=== PATIENT | female | born 1965 | race Caucasian/White ===

== ENCOUNTER 2020-01-10 16:31 | Outpatient (REF) | payer OTHER, SELFPAY | END 2020-01-10 16:32 | disposition home or self-care (01) | LOC: HO.LAB 16:31 | PROVIDERS: PCP Internal Medicine; Visit Provider Internal Medicine | DX: Z20.828 Contact with and (suspected) exposure to other viral communicable diseases (principal) | CPT/HCPCS: 87635 ==

== ENCOUNTER 2021-05-17 11:56 | Emergency (ER) | payer MEDICARE, MEDICAID, SELFPAY ==
--- NOTE | ~2021-05-17 | XR_ITS ---
EXAMINATION: XR KNEE, LEFT CLINICAL INFORMATION: Fall with pain COMPARISON: None TECHNIQUE: Four views of the left knee. FINDINGS: There is no evidence of acute fracture or dislocation of the left knee. Left knee joint spaces are maintained. No left knee effusion. XR/XR knee LT 4V IMPRESSION: No significant bony abnormality of the left knee.
[2021-05-17 12:11] VITALS: BP 119/69; PULSE 70; RESP 18; TEMP 36.8; O2SAT 97; BMI 34.2
--- NOTE | 2021-05-17 12:55 | ED_ITS ---
HPI - Fall General Chief Complaint: Fall Stated Complaint: Fall/ l knee pain Time Seen by Provider: 05/17/21 12:25 Source: patient Mode of arrival: ambulatory Limitations: no limitations History of Present Illness HPI Narrative: 56-year-old female presents to the ER for evaluation of left knee pain after she slipped and fell on black ice today. She reports her left knee twisted inward and she had pain. She had to crawl to get up because the ice was so slippery. She did not hit her head or lose consciousness. She is not on anticoagulation. She has a history of a left hip replacement and is worried whenever she has an injury to her left leg. She denies any hip pain. She is ambulatory. She reports pain in the lateral left knee when she goes from sitting to standing otherwise pain is minimal. She has not noticed much for swelling. She has no weakness, tingling, numbness in the left leg. MD complaint: fall Onset (ago): hour(s) Fall from: standing Fall witnessed: no Place fall occurred: street Loss of consciousness: none Prolonged down time: no Symptoms prior to fall: none Context: tripped/slipped Severity: mild Severity scale (1-10): 4 Quality: aching Associated symptoms (after fall): denies Related Data Allergies Allergy/AdvReac Type Severity Reaction Status Date / Time lurasidone [From LATUDA] Allergy Unknown throat Verified 05/17/21 12:11 spasms, Speech-stuttering Review of Systems Review of Systems: Constitutional: No Fever, No Chills Cardiovascular: No Chest Pain, No SOB Gastrointestinal: No Nausea, No Vomiting, No abdominal Pain Musculoskeletal: + joint pain, No Myalgias Skin: No Skin Lesions, No rash Neuro: No Weakness, No Numbness, No Dizziness, No Headache Psych: + Anxiety/Panic, No Depression Heme/Lymph: No Bruising PMFSH Social History Social History (System 02/22/21 @ 12:40 by Michela Licona) Advance Directives: No Advance Directives Information Provided: No Physical Exam Vital Signs: Vital Signs: Last Vital Signs Temp 98.3 F 05/17/21 12:11 Pulse 70 05/17/21 12:11 Resp 18 05/17/21 12:11 BP 119/69 05/17/21 12:11 Pulse Ox 97 03/03/22 12:11 BMI result Body Mass Index 34.2 Appearance: Alert. Oriented X3. No acute distress. HEENT: normal inspection CVS: Normal heart rate and rhythm. Pulses normal. Respiratory: No respiratory distress. Skin: Skin warm and dry. Normal skin color. Normal skin turgor. No rashes. Extremities: Normal inspection of bilateral lower extremities. Tenderness or along the lateral joint line. Normal palpation of the patella. Normal passive and active extension and flexion of the knee. Pelvis is stable. Nontender left hip. Neurovascularly intact distally. No ecchymosis, swelling, abrasions. No joint laxity felt on anterior drawer test. Neuro: Oriented X 3. No motor deficit. No sensory deficit. Ambualtes with steady gait. Course Course Course Narrative: 48-year-old female presents to the ER for evaluation of left lateral knee pain after slip and fall on ice today. No other apparent injuries. She is ambula tory. She has tenderness along the lateral joint line, possibly a sprain or strain of the LCL. No joint laxity fell on exam. No large effusion on exam. X-rays are pending. Reevaluation(s) Reevaluation #1: X-rays normal. Given Teto wrap for compression and support. Will treat for knee sprain. Have her follow-up with her orthopedist if no resolution of her symptoms next couple of weeks with supportive care. Patient agrees with plan. Stable for DC home. Discharge Plan Discharge Clinical Impression: Knee sprain Patient Disposition: Home, Self-Care Instructions: Knee Sprain (DC) Additional Instructions: Your x-ray today was normal. Rest your knee and elevate your leg when possible. Recommend TETO wrap for support and compression. Use ice several times per day for the next 48 hours. You may bear weight as tolerated. If pain is too severe, use crutches until better. Take Motrin and/or Tylenol as needed for pain. Follow up with your doctor as needed. If you have ongoing pain in the next 1-2 weeks despite the above measures, recommend following up with your orthopedist at [facility].
--- NOTE | 2021-05-17 13:52 | PC.NURSE ---
Entered room for review discharge instructions. pt left with out signing or instructions.
== END 2021-05-17 13:53 | disposition home or self-care (01) ==
PROVIDERS: Emergency Provider Emergency Medicine; PCP Internal Medicine
DX: S83.92XA Sprain of unspecified site of left knee, initial encounter (principal); W00.0XXA Fall on same level due to ice and snow, initial encounter; Y93.01 Activity, walking, marching and hiking; Y92.480 Sidewalk as the place of occurrence of the external cause; Y99.9 Unspecified external cause status
CPT/HCPCS: 73564; 99283; 99284

== ENCOUNTER 2022-04-12 06:30 | Emergency (ER) | payer MEDICARE, MEDICAID, SELFPAY ==
--- NOTE | ~2022-04-12 | CT_ITS ---
EXAMINATION: CT HEAD WITHOUT CONTRAST CLINICAL INFORMATION: Fall while intoxicated COMPARISON: 11/22/2015 TECHNIQUE: Contiguous axial imaging was performed from the skull base to vertex without intravenous contrast. This CT examination was performed using dose optimization techniques as appropriate, variously including the following: * Automated exposure control * Adjustment of mA and/or kV according to patient size (this includes techniques or standardized protocols for targeted exams where dose is matched to indication/reason for exam; i.e. extremities or head) Use of iterative reconstruction technique DLP: 669 mGy-cm. FINDINGS: There is no evidence of acute intracranial hemorrhage or territorial infarction. No abnormal mass effect or midline shift is seen. Saenz to white matter differentiation is well preserved. No extra-axial fluid collections are identified. No hydrocephalus. No significant volume loss. There is no abnormal attenuation within the brain parenchyma. The osseous structures and soft tissues are normal. The mastoid air cells are well aerated. Moderate diffuse mucoperiosteal thickening/opacification of the paranasal sinuses. CT/CT head/brain wo IV con IMPRESSION: No acute intracranial pathology. Moderate paranasal sinus opacification.
[2022-04-12 06:31] VITALS: BP 125/71; PULSE 92; RESP 14; TEMP 36.4; O2SAT 95; BMI 28.1
--- OUTSIDE RECORDS SUMMARY | 2022-04-12 06:49 | XMS_ITS | Continuity of Care Document ---
:1965 Author Organization [facility] Address [address] [place] [address]- Care Team Providers Name Role Phone Home Napoles III, MD Primary Care Physician Encounter [facility] [place] Date(s): 07/13/20 - 08/12/20 [facility] [address], [place] [address] Attending Physician: Benjamin Bajwa Admitting Physician: Benjamin Bajwa Referring Physician: Benjamin Bajwa Allergies, Adverse Reactions, Alerts Substance Reaction Severity Status Latuda Active Immunizations Not Given Vaccine Date Status Refusal Reason pneumococcal 23-valent vaccine1 03/09/20 Not Given Patient Refuses 1Result Comment: pt unable to make this decision at this time Medications acamprosate 333 mg oral delayed release tablet = 666 mg, By Mouth, 3 times a day with meals, 0 Refills, Maintenance, 03/23/20 10:49:00 EST, Tablet,Partial fill upon patient request if the prescription is for a schedule II opioid drug. Start Date: 03/23/20 Status: Orderedaspirin 162.5 mg oral capsule, extended release = 325 mg, By Mouth, 2 times a day, 0 Refills, Maintenance, 03/23/20 12:22:00 EST, ER Capsule, Partial fill upon patient request if the prescription is for a schedule II opioid drug. Start Date: 03/23/20 Status: Orderedbaclofen 10 mg oral tablet 5 mg, 0.5, tablet, By Mouth, 3 times a day, PRN, Refills 0, Maintenance, Spasm, 03/23/20 12:22:00 EST, Partial fill upon patient request if the prescription is for a schedule II opioid drug. Start Date: 03/23/20 Status: Orderedcariprazine 3 mg oral capsule 1 capsule = 3 mg, By Mouth, Daily, 0 Refills, Maintenance, 03/06/20 15:50:00 EST, Partial fill upon patient request if the prescription is for a schedule II opioid drug. Start Date: 03/06/20 Status: Orderedcelecoxib 200 mg oral capsule 1 capsule = 200 mg, By Mouth, Daily in AM, 0 Refills, Maintenance, 03/23/20 10:49:00 EST, Capsule, Partial fill upon patient request if the prescription is for a schedule II opioid drug. Start Date: 03/23/20 Status: Orderedfolic acid 1 mg oral tablet 1 mg, 1, tablet, By Mouth, Daily, Refills 0, Maintenance, 03/23/20 10:50:00 EST, Partial fill upon patient request if the prescription is for a schedule II opioid drug. Start Date: 03/23/20 Status: OrderedKlonoPIN 1 mg oral tablet 1 tablet = 1 mg, By Mouth, 2 times a day, PRN Anxiety, Do not give within 1 hour of Dilaudid or if sleepy, patient's home med, # 6 tablet, 0 Refills, Maintenance, 03/24/20 12:29:00 EST, Tablet Start Date: 03/24/20 Stop Date: 03/27/20 Status: OrderedLaMICtal 100 mg oral tablet 300 mg, 3, tablet, By Mouth, Daily, # 60 tablet, Refills 0, Tot. Refills 0, Maintenance, 07/17/15 22:40:08 EDT, Route to Pharmacy Electronically, [facility] [id number] Start Date: 07/17/15 Stop Date: 08/16/15 Status: Orderedlidocaine 5% topical film Topically, Daily, 0 Refills, Maintenance, 03/23/20 10:51:00 EST, Patch, Partial fill upon patient request if the prescription is for a schedule II opioid drug. Start Date: 03/23/20 Status: OrderedMultivitamin Tablet 1 tablet, By Mouth, Daily, 0 Refills, Maintenance, 03/23/20 10:51:00 EST, Tablet, Partial fill upon patient request if the prescription is for a schedule II opioid drug. Start Date: 03/23/20 Status: OrderedPyridoxine Tablet 50 mg, By Mouth, Daily, Refills 0, Maintenance, 03/23/20 10:51:00 EST, Partial fill upon patient request if the prescription is for a schedule II opioid drug. Start Date: 03/23/20 Status: Orderedsenna 187 mg oral tablet 1 tablet = 8.6 mg, By Mouth, Daily at bedtime, 0 Refills, Maintenance, 03/23/20 10:51:00 EST, Tablet, Partial fill upon patient request if the prescription is for a schedule II opioid drug. Start Date: 03/23/20 Status: Orderedthiamine 100 mg oral tablet 100 mg, 1, tablet, By Mouth, 2 times a day, Refills 0, Maintenance, 03/23/20 10:51:00 EST, Partial fill upon patient request if the prescription is for a schedule II opioid drug. Start Date: 03/23/20 Status: OrderedTriamcinolone 0.5% Topical 1 applicator, Topically, 2 times a day, For rash on back, 0 Refills, Maintenance, Cream Start Date: 03/23/20 Stop Date: 03/30/20 Status: OrderedTylenol 325 mg oral tablet 650 mg, 2, tablet, By Mouth, Every 6 hours, Refills 0, Maintenance, 03/23/20 10:49:00 EST, Partial fill upon patient request if the prescription is for a schedule II opioid drug. Start Date: 03/23/20 Status: OrderedZoloft 100 mg oral tablet 2 tablet = 200 mg, By Mouth, Daily, 0 Refills, Maintenance, 10/03/16 20:06:27 EDT Start Date: 10/03/16 Status: Ordered Social History Social History Type Response Smoking Status Current every day smoker; Ty pe: Cigarettes; Interested in cessation: No; Cessation attempts: 2; entered on: 10/21/16 Sex
--- OUTSIDE RECORDS SUMMARY | 2022-04-12 06:49 | XMS_ITS | Continuity of Care Document ---
:1965 Author Organization [facility] Address [address] [place] [id number]- Care Team Providers Name Role Phone Dony LAWRENCE MD, Home Guy Primary Care Physician Encounter [facility] [place] Date(s): 03/06/20 - 03/24/[address] [address]- Encounter Diagnosis Hip fracture, left (Final) - 03/06/20 Alcohol abuse (Final) - 03/06/20 Withdrawal symptoms, alcohol (Final) - 03/06/20 Discharge Disposition: A-Transfer SNF Attending Physician: John Beltre MD Admitting Physician: Eileen Nolasco MD Referring Physician: Not on Staff, Referring MD Allergies, Adverse Reactions, Alerts Substance Reaction Severity [...] II opioid drug. Start Date: 03/23/20 Status: OrderedDilaudid 4 mg oral tablet 1.5 tablet = 6 mg, By Mouth, Every 4 hours, PRN Pain , Severe, for 3 days, Do not give within 1 hourof clonazepam or other dilaudid, # 24 tablet, 0 Refills, Acute 03/27/20 12:27:00 EST, 03/24/20 12:27:00 EST, Tablet, Partial fill upon patient request... Start Date: 03/24/20 Stop Date: 03/27/20 Status: OrderedDilaudid 4 mg oral tablet 1 tablet = 4 mg, By Mouth, Every 4 hours, PRN Pain , Moderate, for 3 days, Do not give within 1 hourof clonazepam or other PRN Dilaudid, # 18 tablet, 0 Refills, Acute 03/27/20 12:27:00 EST, 03/24/20 12:27:00 EST, Tablet, Partial fill upon patient req... Start Date: 03/24/20 Stop Date: 03/27/20 Status: OrderedDilaudid 4 mg oral tablet 6 mg, Tablet, By Mouth, Every 4 hours, Do not give within 1 hour of clonazepam, PRN for Pain , Severe, Routine, 03/20/20 7:27:00 EST Start Date: 03/20/20 Stop Date: 03/24/20 Status: Discontinuedfolic acid 1 mg oral tablet 1 mg, [...] 07/17/15 22:40:08 EDT, Route to Pharmacy Electronically, [facility] [id number] Start Date: 07/17/15 Stop Date: 08/16/15 Status: [...] II opioid drug. Start Date: 03/23/20 Status: OrderedTylenol 325 mg oral tablet 650 mg, Tablet, By Mouth, 03/24/20 9:00:00 EST Start Date: 03/24/20 Stop Date: 03/24/20 Status: CompletedZoloft 100 mg oral tablet 2 tablet = 200 mg, By Mouth, Daily, 0 Refills, Maintenance, 10/03/16 20:06:27 EDT Start Date: 10/03/16 Status: Ordered Procedures Procedure Date Related Diagnosis Body Site Status Rotator cuff arthropathy of right 03/17/17 Completed shoulder Cholecystectomy 03/17/14 Completed Results Orders for Microbiology Reports Name Date Blood Culture 03/21/20 Blood Culture #2 03/21/20 Blood Culture 03/14/20 Blood Culture #2 03/14/20 Microbiology Reports TEST:Blood Culture STATUS:Unauthenticated BODY SITE: SOURCE:Blood COLLECTED DATE/TIME:03/21/20 1:10 PMBlood Culture SPECIMEN DESCRIPTION : BLOOD R SPECIAL REQUESTS : NONE CULTURE : NO GROWTH 3 DAYS REPORT STATUS : PRELIMINARY REPORT TEST:Blood Culture, Second Order STATUS:Unauthenticated BODY SITE: SOURCE:Blood COLLECTED DATE/TIME:03/21/20 1:10 PMBlood Culture, Second Order SPECIMEN DESCRIPTION : BLOOD NO SITE SPECIAL REQUESTS : NONE CULTURE : NO GROWTH 3 DAYS REPORT STATUS : PRELIMINARY REPORT TEST:Blood Culture STATUS:Auth (Verified) BODY SITE: SOURCE:Blood COLLECTED DATE/TIME:03/14/20 10:05 AMBlood Culture SPECIMEN DESCRIPTION : BLOOD L SPECIAL REQUESTS : NONE CULTURE : NO GROWTH 5 DAYS. REPORT STATUS : FINAL 03/19/2020TEST:Blood Culture, Second Order STATUS:Auth (Verified) BODY SITE: SOURCE:Blood COLLECTED DATE/TIME:03/14/20 10:05 AMBlood Culture, Second Order SPECIMEN DESCRIPTION : BLOOD R SPECIAL REQUESTS : NONE CULTURE : NO GROWTH 5 DAYS. REPORT STATUS : FINAL 03/19/2020adiology Reports Exam Date Time Procedure Performing Provider Status 03/21/20 12:43 PM Chest Portable Lou Smith; Auth (Verifie d) Notes:(Chest Portable) Reason For Exam: FeverRESULT: Chest Portable Chest Portable AP upright at 12:32 PM REASON: Fever; Clinical Question(s): Pneumonia / Pneumonia COMPARISON: 03/14/2020 FINDINGS: LINES AND TUBES: None. LUNGS AND PLEURA: Low lung volumes with crowding of the lung markings. Linear scarring or atelectasis in the left lower lung. No pleural effusion. No pneumothorax. HEART, MEDIASTINUM AND ЮЛИЯ: Unchanged. BONES AND SOFT TISSUES: Suture anchors right humeral head. IMPRESSION: No evidence of pneumonia. WSN: [id number] Ordering Physician: Lyla Stubbs Dictated By: John Rincon MD Dictated Date/Time: 03/21/20 12:48 p Reviewed By: oJhn Rincon MD Signed By: John Rincon MD Signed Date/Time: 03/21/20 12:48 pm Transcribed By: DYANA Transcribed Date/Time: 03/21/20 12:47 pm Exam Date Time Procedure Performing Provider Status 03/19/20 11:12 AM Pelvis 1 or 2 Views Tanesha Mauricio; Auth (Verif ied) Notes:(Pelvis 1 or 2 Views) Reason For Exam: left hip fracture - hemiRESULT: Pelvis 1 or 2 Views Pelvis 1 or 2 Views Reason: left hip fracture - eugenia COMPARISON: 03/19/2020 pelvis radiograph. FINDINGS: Postoperative changes of left total hip arthroplasty, with femoral and acetabular components in anatomic alignment. Cerclage wire fixate the left proximal femur. No periprosthetic fracture. Expected gas within the soft tissues of the left hip. IMPRESSION: Postoperative changes of left total hip arthroplasty, with no immediate hardware complication. WSN: [id number] Ordering Physician: Reilly Perkins Dictated By: Paolo Gibson MD Dictated Date/Time: 03/19/20 1:44 pm Reviewed By: Paolo Gibson MD Signed By: Paolo Gibson MD Signed Date/Time: 03/19/20 1:44 pm Transcribed By: DYANA Transcribed Date/Time: 03/19/20 1:43 pm Exam Date Time Procedure Performing Provider Status 03/19/20 9:57 AM Pelvis 1 or 2 Views Floresita Amaral; Sandro (Verifi ed) Notes:(Pelvis 1 or 2 Views) Reason For Exam: left hip fracture hemiRESULT: Pelvis 1 or 2 Views Pelvis 1 or 2 Views Reason: left hip fracture eugenia COMPARISON: None. FINDINGS: Intraoperative radiographs demonstrating placement of a sizing contrast into the left proximal femur. Left acetabular cup is in place, secured with screws. A cerclage wire is noted about the proximal femur. Expected soft tissue defect within the left hip, with a sponge in place. IMPRESSION: Intraoperative radiographs demonstrating rasp placement into the left proximal femur during left hiparthroplasty. Status post prior left acetabular cup placement. No evidence of complication. WSN: [id number] Ordering Physician: Reilly Perkins Dictated By: Paolo Gibson MD Dictated Date/Time: 03/19/20 12:52 p Reviewed By: Paolo Gibson MD Signed By: Paolo Gibson MD Signed Date/Time: 03/19/20 12:52 pm Transcribed By: DYANA Transcribed Date/Time: 03/19/20 12:51 pm Exam Date Time Procedure Performing Provider Status 03/19/20 10:17 AM Pelvis 1 or 2 Views Floresita Amaral; Sandro (Verifi ed) Notes:(Pelvis 1 or 2 Views) Reason For Exam: left hip fracture - hemiRESULT: Pelvis 1 or 2 Views Pelvis 1 or 2 Views Reason: left hip fracture - eugenia COMPARISON: 03/19/2020 pelvis radiograph.. FINDINGS: Intraoperative radiograph demonstrating left hip arthroplasty, with interval placement of a femoral component. No periprostatic fracture. Left acetabular cup with screws is in place. Extensive soft tissue gas within the left hip, with spine and in place. IMPRESSION: Intraoperative radiographs demonstrating interval placement of femoral component of left hip prosthesis, with no immediate complication. Left acetabular cup is unchanged in position. WSN: [id number] Ordering Physician: Reilly ePrkins Dictated By: Paolo Gibson MD Dictated Date/Time: 03/19/20 10:25 a Reviewed By: Paolo Gibson MD Signed By: Paolo Gibson MD Signed Date/Time: 03/19/20 10:25 am Transcribed By: DYANA Transcribed Date/Time: 03/19/20 10:23 am Exam Date Time Procedure Performing Provider Status 03/14/20 9:59 AM Chest Portable Mali Latasha; Auth (Veri ed) Notes:(Chest Portable) Reason For Exam: FeverRESULT: Chest Portable Chest Portable AP upright at 9:44 AM REASON: Fever; Clinical Question(s): Pneumonia / Pneumonia COMPARISON: 03/11/2020 FINDINGS: LINES AND TUBES: None. LUNGS AND PLEURA: Mild linear scarring or atelectasis at the left lung base. Otherwise clear lungs. No pleural effusion. No pneumothorax. HEART, MEDIASTINUM AND ЮЛИЯ: Heart is normal in size. Normal mediastinal and hilar contour. BONES AND SOFT TISSUES: Left rib fractures better seen on recent CT. IMPRESSION: No evidence of pneumonia. WSN: [id number] Ordering Physician: Hermes Jacome Dictated By: John Rincon MD Dictated Date/Time: 03/14/20 10:05 a Reviewed By: John Rincon MD Signed By: John Rincon MD Signed Date/Time: 03/14/20 10:05 am Transcribed By: DYANA Transcribed Date/Time: 03/14/20 10:04 am Exam Date Time Procedure Performing Provider Status 03/11/20 1:04 AM Chest Portable Dayanara Borrego; Sandro ([facility] ied) Notes:(Chest Portable) Reason For Exam: Tube PlacementRESULT: Chest Portable Chest Portable Reason: Tube Placement; Clinical Question(s): Tube Placement COMPARISON: 03/10/2020 FINDINGS: LINES AND TUBES: Enteric tube courses below the level of the diaphragm. LUNGS AND PLEURA: Left basilar atelectasis. Previous patchy density in the right midlung is improved in appearance. No pneumothorax. HEART, MEDIASTINUM AND ЮЛИЯ: Heart is normal in size. Normal upper mediastinal and hilar contour. BONES AND SOFT TISSUES: Left eighth rib fracture, unchanged. IMPRESSION: Enteric tube in satisfactory position WSN: [id number] Ordering Physician: Ary Muniz Dictated By: Reilly Juares MD Dictated Date/Time: 03/11/20 11:50 a Reviewed By: Reilly Juares MD Signed By: Reilly Juares MD Signed Date/Time: 03/11/20 11:50 am Transcribed By: DYANA Transcribed Date/Time: 03/11/20 11:49 am Exam Date Time Procedure Performing Provider Status 03/10/20 9:39 AM Chest Portable Carmencita Orellana; Sandro (Verif ied) Notes:(Chest Portable) Reason For Exam: Tube PlacementRESULT: Chest Portable Chest Portable upright at 9:29 AM Reason: Tube Placement; Clinical Question(s): Tube Placement COMPARISON: 12/10/2016 FINDINGS: LINES AND TUBES: Enteric tube in good position with tip and side-port in the stomach. LUNGS AND PLEURA: Mild left lung base atelectasis. There is a small area of patchy increased density in the right midlung just superior to the minor fissure. Lungs are otherwise clear with normal vascularity. No pleural effusion. No pneumothorax. HEART, MEDIASTINUM AND ЮЛИЯ: Heart is normal in size. Normal upper mediastinal and hilar contour. BONES AND SOFT TISSUES: Acute fracture of the eighth rib laterally. IMPRESSION: Enteric tube in good position. Mild left lung base atelectasis. Small area of patchy increased density in the right mid lung with differential including both atelectasis and early infiltrate. Acute fracture of the left eighth rib laterally. WSN: [id number] Ordering Physician: Hermes Jacome Dictated By: Reilly Ram MD Dictated Date/Time: 03/10/20 9:58 am Reviewed By: Reilly Ram MD Signed By: Reilly Ram MD Signed Date/Time: 03/10/20 9:58 am Transcribed By: DYANA Transcribed Date/Time: 03/10/20 9:49 am Exam Date Time Procedure Performing Provider Status 03/06/20 12:19 PM XR Hip w/Pelvis 2-3 View Left Finesse , Princess; Auth (Verified) Notes:(XR Hip w/Pelvis 2-3 View Left) Reason For Exam: TraumaRESULT: XR Hip w/Pelvis 2-3 View Left XR Hip w/Pelvis 2-3 View Left INDICATION: today was walking and turned and felt L hip pop out . cant bear weight on it; Clinical Question(s): Fracture COMPARISON: CT pelvis 03/05/2020. FINDINGS: New, slightly displaced left basicervical fracture of the proximal femur. Unremarkable SI joints and pubic symphysis. No pelvic ring fractures. Left hip joint effusion with possible soft tissue hematoma. IMPRESSION: New, slightly displaced left basicervical fracture of the proximal femur. A [place] message has been communicated via the [employer] system on 03/06/2020 12:33 PM, Message ID [id number]. I have personally reviewed the images and I agree with this report. WSN: [id number] Ordering Physician: Lexie Christianson Dictated By: Amelia Wise DO Dictated Date/Time: 03/06/20 12:39 p Reviewed By: Will Wallace MD Signed By: Will Wallace MD Signed Date/Time: 03/06/20 12:44 pm Transcribed By: DYANA Transcribed Date/Time: 03/06/20 12:33 pm Vital Signs Most recent to oldest 1 2 3 [Reference Range]: Height 173 cm 173 cm 173 cm (03/24/20 12:29 PM) (03/24/20 9:05 AM) (03/24/20 3:43 AM) Weight 91 kg 91 kg (03/19/20 7:47 AM) (03/07/20 1:44 AM) Oxygen Saturation [94-100 %] 98 % 97 % 96 % (03/24/20 12:29 PM) (03/24/20 9:05 AM) (03/24/20 3:43 AM) Pulse Rate [55-90 bpm] 75 bpm 77 bpm 80 bpm (03/24/20 12:29 PM) (03/24/20 9:05 AM) (03/24/20 3:43 AM) Body Mass Index [18.5-24.99] 30.41 30.41 *>HHI* *>HHI* (03/19/20 7:47 AM) (03/07/20 1:44 AM) Blood Pressure [90-138/55-84 112/60 mm Hg 117/57 mm Hg 120 /59 mm Hg mm Hg] (03/24/20 12:29 PM) (03/24/20 9:05 AM) (03/24/20 3:43 AM) Respiratory Rate [16-30 18 br/min 19 br/min 18 br/mi n br/min] (03/24/20 12:29 PM) (03/24/20 11:17 AM) (03/24/20 9:56 AM) Temperature [96.8-100.4 DegF] 97.8 DegF 98.2 DegF 98 DegF (03/24/20 12:29 PM) (03/24/20 9:05 AM) (03/24/20 3:43 AM) Liters per Minute 0 L/min 0 L/min 2 L/min (03/19/20 1:00 PM) (03/19/20 12:45 PM) (03/19/20 12:30 PM) Mode of Delivery (Oxygen) Room air Room air Room a ir (03/24/20 12:29 PM) (03/24/20 9:05 AM) (03/24/20 3:43 AM) Blood pressure sites Arm, left Arm, right Arm, right (03/24/20 9:05 AM) (03/24/20 3:43 AM) (03/24/20 12:29 AM) Temperature Route Oral Oral Oral (03/24/20 12:29 PM) (03/24/20 9:05 AM) (03/24/20 3:43 AM) Dry Weight 91 kg (03/07/20 1:44 AM) Social History Social History Type Response Smoking Status Current every day smoker; Ty pe: Cigarettes; Interested in cessation: No; Cessation attempts: 2; entered on: 10/21/16 Sex
--- OUTSIDE RECORDS SUMMARY | 2022-04-12 06:49 | XMS_ITS | Continuity of Care Document ---
:1965 Author Organization [facility] Address [address] [place] [id number]- Care Team Providers Name Role Phone Dony LAWRENCE MD, Home Guy Primary Care Phys[place] [facility] [place] 03/15/[address] [id number] Discharge Disposition: A-D/C Home Attending Physician: John Beltre MD Admitting Physician: Edwin Madden MD Referring Physician: Not on Staff, Referring MD Allergies, Adverse Reactions, Alerts Substance Reaction Severity Status Latuda Active Immunizations Given and Recorded Vaccine Date Status Refusal Reason SARS-CoV-2 (COVID-19) mRNA BNT-162b2 vac 01/12/21 Recorde d SARS-CoV-2 (COVID-19) mRNA BNT-162b2 vac 05/01/20 Recorde d SARS-CoV-2 (COVID-19) mRNA BNT-162b2 vac 04/10/20 Recorde d influenza virus vaccine, inactivated 03/13/18 Recorded influenza virus vaccine, inactivated 04/29/17 Recorded tetanus/diphtheria/pertussis, acel(Tdap) 09/13/14 Recorde d Not Given Vaccine Date Status Refusal Reason influenza virus vaccine, inactivated 03/10/22 Not Given Patient Refuses pneumococcal 23-valent vaccine1 03/09/20 Not Given Patient Refuses 1Result Comment: pt unable to make this decision at this time Medications Acetaminophen Tablet 650 mg, Tablet, By Mouth, Every 4 hours, PRN for Pain , Mild, Temperature Greater than 100.5, Routine, 03/08/22 23:30:00 EST Start Date: 03/08/22 Stop Date: 03/15/22 Status: Discontinuedatorvastatin 20 mg oral tablet 1 tablet = 20 mg, By Mouth, Daily, # 30 tablet, 0 Refills, Maintenance, 03/08/22 23:51:00 EST, Tablet, Partial fill upon patient request if the prescription is for a schedule II opioid drug. Start Date: 03/08/22 Status: OrderedKlonoPIN 1 mg oral tablet 1 [...] tablet, Refills 0, Tot. Refills 0, Maintenance, 10/27/20 14:28:00 EDT, Route to Pharmacy Electronically, [facility]/pharmacy #[id number], 172, cm, 10/27/20 10:17:00 EDT, Height, 93, kg, 10/21/20 15:38:00 EDT, Dry Weight Start Date: 10/27/20 Status: OrderedmetFORMIN 500 mg oral tablet 1 each = 500 mg, By Mouth, 2 times a day, # 60 tablet, 1 Refills, Maintenance, 10/27/20 14:29:00 EDT, Tablet, [facility]/pharmacy #[id number], Partial fill upon patient request if the prescription is for a scheduleII opioid drug., 172, cm, 10/27/20 10:17:00 EDT,... Start Date: 10/27/20 Stop Date: 12/26/20 Status: Orderedomeprazole 20 mg oral enteric coated capsule 1 capsule = 20 mg, By Mouth, Daily, # 30 capsule, 0 Refills, Maintenance, 03/08/22 23:51:00 EST, EC Capsule, Partial fill upon patient request if the prescription is for a schedule II opioid drug. Start Date: 03/08/22 Status: Orderedtopiramate 100 mg oral tablet = 100 mg, By Mouth, Daily at bedtime, # 30 tablet, 0 Refills, Maintenance, 10/27/20 14:29:00 EDT, Tablet, [facility]/pharmacy #[id number], Partial fill upon patient request if the prescription is for a schedule II opioid drug., 172, cm, 10/27/20 10:17:00 EDT, Heig... Start Date: 10/27/20 Stop Date: 11/26/20 Status: OrderedVraylar 3 mg oral capsule 1 capsule = 3 mg, Daily, 0 Refills, Maintenance, 03/08/22 23:51:00 EST, Partial fill upon patient request if the prescription is for a schedule II opioid drug. Start Date: 03/08/22 Status: OrderedZoloft 100 mg oral tablet 2 tablet = 200 mg, By Mouth, Daily, # 60 tablet, 0 Refills, Maintenance, 10/27/20 14:29:00 EDT, Tablet, [facility][id number], Partial fill upon patient request if the prescription is for a schedule II opioid drug., 172, cm, 10/27/20 10:17:00 EDT, Height... Start Date: 10/27/20 Stop Date: 11/26/20 Status: Ordered Problem List Condition Confirmation Course Effective Dates Status Health Stat us Informant Bipolar disorder Confirmed Active COVID-191 Confirmed 03/15/22 Active 1Problem added by Discern Expert Results Radiology Reports Exam Date Time Procedure Performing Provider Status 03/09/22 4:[address] Angio Abdomen and Pelvis Matt Jennings; Aut h (Verified) Notes:(CT Angio Abdomen and Pelvis) Reason For Exam: ABDOMINAL PAIN, WORSENING LACTIC ACID;PainRESULT: CT Angio Abdomen and Pelvis CT Angio Abdomen and Pelvis INDICATION: ABDOMINAL PAIN, WORSENING LACTIC ACID; Clinical Question(s): Ischemic colitis Infection COMPARISON: CT pelvis 03/05/2020. TECHNIQUE: Axial images were obtained from diaphragm through the pelvis during the intravenous administration of iodinated contrast. 100 cc of Omnipaque 300 was administered intravenously. Delayed (venous) images were also acquired for evaluation of the portal veins. Sagittal and coronal maximum intensity projection (MIP) images were reconstructed and rendered in both arterial and venous phases. Weight-based protocol using automatic tube modulation was used to optimize exposure parameters. RADIATION DOSE PARAMETERS: CTDIvol Body: 14.95 mGy, DLP Body: 2273 mGy*cm. VASCULAR FINDINGS: Abdominal aorta: No aortic aneurysm or dissection. Celiac axis: Patent. Superior mesenteric artery: Patent. Right renal artery: Patent. Left renal artery: Patent. Inferior mesenteric artery: Patent. Right common iliac artery: Patent. Right internal iliac artery: Patent. Right external iliac artery: Patent. Right common femoral artery: Patent. Visualized right superficial and deep femoral arteries: Patent. Left common iliac artery: Patent. Left internal iliac artery: Patent. Left external iliac artery: Patent. Left common femoral artery: Patent. Visualized left superficial and deep femoral arteries: Patent. IVC and hepatic veins: Patent. Portal vein: Patent. Splenic vein: Patent. Inferior mesenteric vein: Patent. Iliac and femoral veins: Patent. NONVASCULAR FINDINGS: Visualized Chest: Lung bases are clear. No pleural effusion. The heart is normal in size. No pericardial effusion. Diaphragm: Normal. Liver: Normal. Gallbladder: Absent consistent with prior cholecystectomy. Bile ducts: No biliary ductal dilation. Spleen: Normal. Pancreas: Normal. Adrenal glands: Normal. Kidneys and ureters: No hydronephrosis, stones, or suspicious masses. Bladder: Normal. Reproductive organs: 4.5 cm circumscribed solid right adnexal lesion is unchanged from 02/2020. Stomach, small bowel, and large bowel: The stomach is normal. The small and large bowel are normal in caliber without evidence of obstruction. Chronic submucosal fat deposition throughout the colonic wall suggestive of prior inflammation. Moderate wall thickening of the ascending colon, with moderate s urrounding fat stranding and thickening of the peritoneal membrane. Appendix: Normal, best seen on coronal 50. Peritoneum and retroperitoneum: No ascites or pneumoperitoneum. No omental or mesenteric lesions. Lymph nodes: No enlarged lymph nodes. Abdominal and pelvic wall: Unremarkable. Bones: No acute abnormality. Chronic left 10th rib fracture. Status post left hip arthroplasty. IMPRESSION: 1. Moderate inflammatory changes at the right hemicolon, suggestive of infectious/inflammatory colitis. 2. No large vessel occlusion. 3. Indeterminate 4.5 cm right adnexal solid mass is unchanged from 02/2020. I have personally reviewed the images and I agree with this report. WSN: [id number] Ordering Physician: Eliezer Su Dictated By: Abdon Wall MD Dictated Date/Time: 03/09/22 7:52 am Reviewed By: Reilly Ram MD Signed By: Reilly Ram MD Signed Date/Time: 03/09/22 7:57 am Transcribed By: DYANA Transcribed Date/Time: 03/09/22 5:08 am Exam Date Time Procedure Performing Provider Status 03/08/22 6:46 PM Chest 2 Views Frontal and Lat [place] , Rebecca; [facility] (Verified) Notes:(Chest 2 Views Frontal and Lat) Reason For Exam: Traumatic Chest Pain;Other:RESULT: Chest 2 Views Frontal and Lat Chest 2 Views Frontal and Lat Hx of Present Illness: Pt states she has been sober x5 months but relapsed 3 weeks ago and has been drinking 1L vodka day. Last drink was today. NVD x1 week, denies bloody emesis or stool. Has withdrawn in the past but denies seizures, hallucinations. Also c o weakness.; Reason: Other:; Traumatic Chest Pain; Clinical Question(s): Pneumothorax, Fracture COMPARISON: March 21, 2020 FINDINGS: LINES AND TUBES: None. LUNGS AND PLEURA: Clear lungs. Normal pulmonary vascularity. No pleural effusion. No pneumothorax. HEART, MEDIASTINUM AND ЮЛИЯ: Heart is normal in size. Normal mediastinal and hilar contour. BONES AND SOFT TISSUES: No acute abnormality. IMPRESSION: No acute abnormality. WSN: [id number] Ordering Physician: Erica Hazel Dictated By: Nate Curiel MD Dictated Date/Time: 03/08/22 6:52 pm Reviewed By: Nate Curiel MD Signed By: Nate Curiel MD Signed Date/Time: 03/08/22 6:52 pm Transcribed By: DYANA Transcribed Date/Time: 03/08/22 6:50 pm Vital Signs Most recent to oldest 1 2 3 [Reference Range]: Height 173 cm 173 cm 173 cm (03/14/22 3:54 PM) (03/10/22 4:10 PM) (03/09/22 4:30 PM) Weight 88.6 kg 88.4 kg 88.6 kg (03/09/22 4:30 PM) (03/09/22 4:00 PM) (03/09/22 2:18 PM) Oxygen Saturation [94-100 98 % 98 % 96 % %] (03/15/22 9:00 AM) (03/15/22 4:00 AM) (03/15/22 12:00 AM) Pulse Rate [55-90 bpm] 73 bpm 55 bpm 59 bpm (03/15/22 9:00 AM) (03/15/22 12:00 AM) (03/14/22 8:00 PM) Body Mass Index 29.6 kg/m2 29.6 kg/m2 29.6 kg/m2 [18.5-24.99 kg/m2] *H* *H* *H* (03/09/22 4:30 PM) (03/09/22 2:18 PM) (03/09/22 7:59 AM) Blood Pressure 113/65 mm Hg 114/65 mm Hg 115/60 mm Hg [90-138/55-84 mm Hg] (03/15/22 9:00 AM) (03/15/22 4:00 AM) (02/16 12:00 AM) Respiratory Rate [16-30 18 br/min 19 br/min 18 br/mi n br/min] (03/15/22 12:00 AM) (03/14/22 10:10 PM) ( 8:00 PM) Temperature [96.8-100.4 98.2 DegF 98.0 DegF 98.5 Deg F DegF] (03/15/22 4:00 AM) (03/15/22 12:00 AM) (03/14/22 8:00 PM) Mode of Delivery (Oxygen) Room air Room air Room a ir (03/15/22 9:00 AM) (03/15/22 4:00 AM) (03/15/22 12:00 AM) Blood pressure sites Arm, right Arm, right Arm, right (03/15/22 9:00 AM) (03/15/22 4:00 AM) (03/15/22 12:00 AM) Temperature Route Oral Oral Oral (03/15/22 4:00 AM) (03/15/22 12:00 AM) (03/14/22 8:00 PM) Dry Weight 88.6 kg 88.6 kg 88.6 kg (03/09/22 4:30 PM) (03/09/22 2:18 PM) (03/09/22 7:59 AM) Weight Obtained Via Patient/family stated Bed scale (03/09/22 4:30 PM) (03/09/22 4:00 PM) Dry Weight Obtained Via Patient/family stated (03/09/22 4:30 PM) Social History Social History Type Response Smoking Status Current every day smoker; Ty pe: Cigarettes; Interested in cessation: No; Cessation attempts: 2; entered on: 10/21/16 Sex Admission evaluation note Georges GUADARRAMA, Eliezer: PERFORM Event Display: Admission Note Authored Date: Patient: ??KEKE GRAVES ? Age:??57 Years?Sex:??Female?:??1965?? Chief Complaint/Reason for Consultation Abdominal pain History of Present Illness The patient is a 57 years old female with past medical history of alcohol abuse with recent relapse,??bipolar disorder??presented to ER with a chief complaint of abdominal pain. ? Patient reported that she developed abdominal pain about 1 week ago.?? The patient described the abdominal pain as generalized but more in the right side as sudden onset,??waxing and waning, 10-5/10,??dull and cramp-like,??with no aggravating factors, alleviated by not eating,??associated nausea, multiple episodes nonbloody, nonbilious vomiting and??watery diarrhea.?? The patient reported that she has not been??able to tolerate anything p.o. for the last 1 week. ? Patient denied any fever, chills, chest pain, cough, shortness of breath,??numbness, tingling, headache. ? The patient reported that she has been sober for 5 months??until yesterday morning when she??hadonly 1 glass of vodka. Review of Systems All pertinent negative and positives are noted in HPI. ??All other systems were reviewed and are negative. Objective Measurements?? Height: 173 cm (03/08/22) Weight: 88.6 kg (03/08/22) Dry Weight: 88.6 kg (03/08/22) ? Vital Signs?? Temperature: 98.2 DegF (03/09/22 00:23:00) Temperature Route: Oral (03/09/22 00:23:00) Pulse Rate: 87 bpm (03/09/22 00:23:00) Respiratory Rate: 16 br/min (03/09/22 00:23:00) Vented: No (03/09/22 00:23:00) Systolic Blood Pressure: 131 mm Hg (03/09/22 00:23:00) Diastolic Blood Pressure: 73 mm Hg (03/09/22 00:23:00) Pulse Pressure: 58 mm Hg (03/09/22 00:23:00) Oxygen Saturation: 97 % (03/09/22 00:23:00) Mode of Delivery (Oxygen): Room air (03/09/22 00:23:00) Early Warning Score: 4 (03/09/22 00:24:59) ? Physical Exam Constitutional: Alert, in no acute distress. Head: Normocephalic. ?? Eyes: Pupils are equal, round and reactive to light. Extraocular muscles intact. No pallor or scleral icterus ?? Ear, Nose and Throat: mucous membranes moist. Ears and nose - no obvious deformities. Trachea midline. ?? Neck: Supple, Full range of motion.No JVD or bruits. Respiratory:??Clear to auscultation. No wheezing or rhonchi.??No use of accessory muscles. No tactile fremitus.?? Cardiovascular:??PMI not visible. S1 S2 regular. No murmurs, rubs or gallops. Gastrointestinal:??Abdomen soft, generalized tenderness but little bit more in right upper quadrantand right umbilical area, non-distended. Normal bowel sounds. No pulsatile mass. No hepatosplenomegaly. Genitourinary:??No costovertebral angle tenderness. Extremities: No lower extremity pitting edema. No cyanosis or clubbing. Neurologic:??AAOx3, Cranial nerves II-XII grossly intact. Speech normal, no facial droop. No focal neurological deficits. Moves all extremities spontaneously. Sensation intact bilaterally.??Flexor plantar response Skin:??No rash.?? Musculoskeletal:??No gross deformities on inspection. Normal range of motion in hips, knees, ankles. .??Muscle strength within normal limits Heme/Lymphatics:??Palpation of neck reveals no swelling or tenderness of neck nodes.?? Psychiatric: Normal mood and affect. Assessment/Plan Diagnoses 1. ??Abdominal pain ??(R10.9) 2. ??Nausea and vomiting ??(R11.2) 3. ??Acute diarrhea ??(R19.7) 4. ??Lactic acidosis ??(E87.2) 5. ??Bipolar disorder ??(F31.9) ?? Assessment:??The patient is a 57-year-old female who presented to ER with a chief complaint abdominal pain with nausea vomiting and diarrhea.??Patient was given IV fluids and??symptomatic treatment and patient was able to tolerate p.o. intake .??However, lactic acid Trending up??and Patient Was Feeling Very Exhausted.?Therefore??She Was Admitted for??Further Management ?? Abdominal pain (R10.9):??Etiology:??Likely viral gastroenteritis versus??peptic ulcer disease versus??less likely ischemic etiology Patient reported generalized abdominal pain with nausea and vomiting along with watery diarrhea for1 week,??patient also reported that she has been taking??[id number]??Advil??recently Physical exam: Abdomen soft but mild generalized tenderness In ER: Patient received Protonix, Maalox and was able to tolerate crackers and??liquids Initial lactic acid 3.7,??it up to 4.6 despite 3-4 boluses Started patient on IV Protonix 40 mg twice daily, IV Zofran for nausea and vomiting,??full liquid diet Also ordered CTA abdomen to rule out any ischemic etiology We will monitor and further management based on CAT scan findings and symptoms control ? Nausea and vomiting (R11.2):??Etiology and management as above ?? Acute diarrhea (R19.7):??Etiology: Likely??viral gastroenteritis versus COVID-19 Patient??also having watery diarrhea for 1 week along with abdominal pain No risk factors for C. difficile Received 1 dose of loperamide in the ER Ordered CT abdomen as well as C. difficile We will monitor and??if C. difficile negative,??will give as needed loperamide??for diarrhea ? COVID-19 Patient??also found to have COVID-19 but she is not having any chest pain, shortness of breath, cough, on room air satting 100% We will continue to monitor ? Lactic acidosis (E87.2):??Etiology: Likely dehydration versus??less likely ischemic??etiology versus less likely metformin Patient had abdominal pain with nausea vomiting diarrhea and decreased p.o. intake for 1 week Lactic acid keeps on trending up despite IV fluids Also takes metformin at home for weight loss,, patient creatinine is normal and therefore less likely metformin is playing a role in lactic acidosis Currently. Hemodynamic stable Continue IV fluids and trend lactic acid the labs ?? Bipolar disorder (F31.9):??Resume all home medication including lamotrigine, Topamax, Zoloft, clonazepam Patient is also on??caripirazine??that we do not carry in the pharmacy ? Alcohol use Reported that she was sober for just 5 months until yesterday morning when she had 1 glass of vodka Currently no signs of alcohol withdrawal We will monitor ? VTE Prophylaxis:??Lovenox ?VTE Prophylaxis Assessment:??VTE Prophylaxis Ordered ?? Code Status:??Full code ?Order Code Status:??Code Status Ordered ?? Ongoing Medical Necessity:??Abdominal pain, COVID-19,??lactic acidosis ?? Discharge Planning:??Pending clinical course ? Date of service: March 09, 2022 Histories Allergies Allergies ?(Active and Proposed Allergies Only) Latuda? (Severity: Unknown severity, Onset: Unknown) ? Past Medical History/Problem List Active Problems??(1) Bipolar disorder ? Past Surgical History Rotator cuff arthropathy of right shoulder: 03/17/17 Esophagogastroduodenoscopy: 04/18/15 Cholecystectomy: 03/17/14 ? Social History Alcohol Details:??Use: Current. ??Frequency: Several times per day. ??Type: Beer. ??Other: Had two pints ofbeer this morning. Home/Environment Details:??Living situation: Home/Independent. Substance Abuse Details:??Use: Current. ??Type: Cocaine, crack cocaine. ??Other: by inhalation. ??Frequency: 3-5 times per week. Tobacco Details:??Current every day smoker, Type: Cigarettes. ??Interested in cessation: No. ??Cessation attempts: 2. ? Family History Mother: Alzheimer's disease ? Medications Home Medications Atorvastatin (atorvastatin 20 mg oral tablet)?1?tab(s)?20?Milligram?By Mouth?Daily cariprazine (Vraylar 3 mg oral capsule)?1?capsule?3?Milligram?Daily Clonazepam (KlonoPIN 1 mg oral tablet)?1?tab(s)?1?Milligram?By Mouth?2 times a day?as needed?Anxiety?for 3?Days?Do not give within 1 hour of Dilaudid or if sleepy, patient's home med Lamotrigine (LaMICtal 100 mg oral tablet)?300?Milligram?3?tablet?By Mouth?Daily Metformin (metFORMIN 500 mg oral tablet)?1?Each?500?Milligram?By Mouth?2 times a day?for 30?Days Omeprazole (omeprazole 20 mg oral enteric coated capsule)?1?capsule?20?Milligram?By Mouth?Daily Sertraline (Zoloft 100 mg oral tablet)?2?tab(s)?200?Milligram?By Mouth?Daily?for 30?Days Topiramate (topiramate 100 mg oral tablet)?100?Milligram?By Mouth?Daily at bedtime?for 30?Days ? Results Recent Labs BLOOD COUNT & DIFF WBC 8.8 k/mm3 ()?? 03/08/2022 18:33 RBC 4.87 m/mm3 ()?? 03/08/2022 18:33 Hgb 14.9 Gm/dL ()?? 03/08/2022 18:33 Hct 43.9 % ()?? 03/08/2022 18:33 MCV 90.1 femtoliters ()?? 03/08/2022 18:33 MCH 30.6 pg ()?? 03/08/2022 18:33 MCHC 33.9 g/dL ()?? 03/08/2022 18:33 Platelet Count 212 k/mm3 ()?? 03/08/2022 18:33 RDW-SD 40.1 femtoliters ()?? 03/08/2022 18:33 MPV 9.7 femtoliters ()?? 03/08/2022 18:33 Nucleated RBC (Automated) 0.2 #/100 WBC'S ()?? 03/08/2022 18:33 Abs. NRBC 0.0 k/mm3 ()?? 03/08/2022 18:33 Abs. Neut 4.2 k/mm3 ()?? 03/08/2022 18:33 Abs. Lymph 3.7 k/mm3 (High)?? 03/08/2022 18:33 Abs. Gove 0.7 k/mm3 ()?? 03/08/2022 18:33 Abs. Eo 0.1 k/mm3 ()?? 03/08/2022 18:33 Abs. Baso 0.0 k/mm3 ()?? 03/08/2022 18:33 Neut % 48.0 % ()?? 03/08/2022 18:33 Lymph % 42.4 % ()?? 03/08/2022 18:33 Gove % 7.8 % ()?? 03/08/2022 18:33 Eos % 1.3 % ()?? 03/08/2022 18:33 Baso % 0.3 % ()?? 03/08/2022 18:33 Imm Gran 0.2 % ()?? 03/08/2022 18:33 Abs. Imm Gran 0.0 k/mm3 ()?? 03/08/2022 18:33 ?? CARDIAC High Sensitivity Troponin (HSTnT) 14 ng/L (High)?? 03/08/2022 20:14 ?? CHEM GENERAL Sodium 141 mmol/L ()?? 03/08/2022 18:33 Potassium 4.7 mmol/L ()?? 03/08/2022 18:33 Chloride 103 mmol/L ()?? 03/08/2022 18:33 Bicarbonate Level 25 mmol/L ()?? 03/08/2022 18:33 Anion Gap 13 ()?? 03/08/2022 18:33 Glucose Level 109 mg/dL (High)?? 03/08/2022 18:33 BUN 26 mg/dL (High)?? 03/08/2022 18:33 Creatinine-Blood 0.7 mg/dL ()?? 03/08/2022 18:33 Estimated GFR Creatinine 100 ML/MIN/1.73 M2 ()?? 03/08/2022 18:33 Calcium 8.2 mg/dL (Low)?? 03/08/2022 18:33 Protein, Total 6.0 Gm/dL (Low)?? 03/08/2022 18:33 Albumin 3.6 Gm/dL ()?? 03/08/2022 18:33 AG Ratio 1.5 ()?? 03/08/2022 18:33 Alkaline Phosphatase 134 units/L (High)?? 03/08/2022 18:33 Lipase 19 units/L ()?? 03/08/2022 18:33 AST (SGOT) 22 units/L ()?? 03/08/2022 18:33 ALT (SGPT) 22 units/L ()?? 03/08/2022 18:33 Bilirubin, Total 0.2 mg/dL ()?? 03/08/2022 18:33 Lactate 4.6 mmol/L (High)?? 03/08/2022 21:50 ?? VIROLOGY Influenza A PCR NEGATIVE ()?? 03/08/2022 19:41 Influenza B PCR NEGATIVE ()?? 03/08/2022 19:41 RSV PCR NEGATIVE ()?? 03/08/2022 19:41 COVID-19 PCR Specimen Source NASAL ()?? 03/08/2022 19:41 COVID-19 PCR Result POSITIVE (Abnormal)?? 03/08/2022 19:41 ? Coagulation Profile?? No qualifying data available. ?? Eliezer Su MD: PERFORM Event Display: Admission Note Authored Date: Addendum to social history:( please ignore??above??mentioned social history) Smoking status:??Patient is daily smoker Alcohol use:??History of alcohol abuse in the past, was sober for 5 months??till yesterday when she had a drink of vodka Denies any other??drug abuse EKG study Event Display: ECG 12-Lead Authored Date: Please click on pdf link to open report Event Display: ECG 12-Lead Authored Date: Ventricular Rate: 109 BPM Atrial Rate: 109 BPM P-R Interval: 140 ms QRS Duration: 80 ms Q-T Interval: 344 ms QTC Calculation(Bazett): 463 ms P Stonewall: 62 degrees R Stonewall: 57 degrees T Stonewall: 47 degrees Sinus tachycardia Low voltage QRS Borderline ECG When compared with ECG of 08-MAR-2022 18:03, No significant change Confirmed by ISAIAH QUINN ([id number]) on 03/11/2022 4:17:32 PM Farina: ISAIAH QUINN Event Display: EKG Authored Date: Event Display: ECG 12-Lead Authored Date: Please click on pdf link to open report Event Display: ECG 12-Lead Authored Date: Ventricular Rate: 86 BPM Atrial Rate: 86 BPM P-R Interval: 156 ms QRS Duration: 80 ms Q-T Interval: 388 ms QTC Calculation(Bazett): 464 ms P Stonewall: 51 degrees R Stonewall: 44 degrees T Stonewall: 44 degrees Normal sinus rhythm Low voltage QRS Borderline ECG When compared with ECG of 22-OCT-2020 09:32, Vent. rate has increased BY 30 BPM Confirmed by SAUL GUAMAN MD ([id number]) on 03/12/2022 6:37:51 AM Farina: SAUL GUAMAN MD Note Mone Mancuso RN: PERFORM Event Display: Discharge/Transfer Note Hospital Authored Date: [id number] Nursing Discharge Note Entered On: 03/15/2022 14:08 EST Performed On: 03/15/2022 14:07 EST by Mone Mancuso RN Nursing Discharge Note 2 Discharge Time : 03/15/2022 13:25 EST Discharge Level of Care at Discharge : Home/Shelter/Foster Care Patient Left Unit Via : Wheelchair Patient Accompanied Off Unit with : Responsible adult DC Instructions Provided & Signed by Pt : Yes Patient Understands D/C Instructions : Yes Patient Instructions Discharge Signed : Yes Did Pt have Specialty Bed or Wound Vac : No Bartolome YOO, Mone - 03/15/2022 14:07 Dena Fontenot DO: PERFORM, MODIFY, MODIFY Event Display: Discharge/Transfer Note Hospital Authored Date: [id number] Patient: ??KEKE GRAVES ? Age:??57 Years?Sex:??Female?:??1965?? Patient Information Discharge Location: [facility] Primary Care Physician: Home Napoles III, MD Admit Date/Time: 03/08/22 23:00 Discharge Date/Time: 03/15/22 Discharge Disposition Discharge Disposition: Home: No Services Discharge Diagnosis Right sided colitis Abdominal pain (R10.9) Nausea and vomiting (R11.2) Acute diarrhea (R19.7) Lactic acidosis (E87.2) Bipolar disorder (F31.9) COVID (U07.1) _ Discharge Medications Atorvastatin (atorvastatin 20 mg oral tablet)?1?tab(s)?20?Milligram?By Mouth?Daily cariprazine (Vraylar 3 mg oral capsule)?1?capsule?3?Milligram?Daily Clonazepam (KlonoPIN 1 mg oral tablet)?1?tab(s)?1?Milligram?By Mouth?2 times a day?as needed?Anxiety?for 3?Days?Do not give within 1 hour of Dilaudid or if sleepy, patient's home med Lamotrigine (LaMICtal 100 mg oral tablet)?300?Milligram?3?tablet?By Mouth?Daily Metformin (metFORMIN 500 mg oral tablet)?1?Each?500?Milligram?By Mouth?2 times a day?for 30?Days Omeprazole (omeprazole 20 mg oral enteric coated capsule)?1?capsule?20?Milligram?By Mouth?Daily Sertraline (Zoloft 100 mg oral tablet)?2?tab(s)?200?Milligram?By Mouth?Daily?for 30?Days Topiramate (topiramate 100 mg oral tablet)?100?Milligram?By Mouth?Daily at bedtime?for 30?Days ?? Medications Started None Medications Discontinued None Doses Changed None Allergies Allergies ?(Active and Proposed Allergies Only) Latuda? (Severity: Unknown severity, Onset: Unknown) ?? PCP Follow-Up/Heads-Up admitted for colitis, s/p IV antibiotics for five days improvement in symptoms asymptomatic COVID incidental adnexal mass on imaging - needs outpatient f/u Future Appointments PCP within one week Hospital Course Keke Graves is a 57 year old female with PMH of alcohol use disorder and bipolar disorder who presented on 03/08 with one week of abdominal pain and GI symptoms. Patient was admitted for further management of infectious colitis and dehydration. Patient completed 5 days of IV antibiotics. Her GI symptoms of abdominal pain, diarrhea, nausea, and vomiting??have improved. Patient reporting weakness due to acute illness. She??was seen by Physical Therapy, who recommended home without services. Patientis clinically and hemodynamically stable for discharge to home without services. ?? Right sided colitis Abdominal pain - improving Presenting with 1 week of GI symptoms CT showing moderate inflammatory changes at right hemicolon, concerning for infectious vs inflammatory colitis GI stool profile PCR negative, C diff negative Patient's diet has been advanced and she has been able to tolerate S/p ceftriaxone and metronidazole 03/10-03/14 ?? Recommendations: -Continue diet as tolerated -Supportive management ?? COVID 19 Infection Asymptomatic, vaccinated x2 with 1 booster Does not require oxygen ?? Recommendations: -Isolation for 10 days from positive test 03/08 -Supportive management ?? Alcohol use disorder Was at rehab for 4 months, but had relapse prior to presentation to hospital Seen by Social Work ?? Recommendations: -Outpatient support services ?? Indeterminate 4.5cm right adnexal solid mass Unchanged from 02/2020 ?? Recommendations: -Outpatient f/u with PCP ?? Chronic stable resolved medical conditions Bipolar disorder:??continue lamotrigine, topamax, zoloft, clonazepam, cariprazine Lactic acidosis - resolved:??likely in setting of dehydration ?? Objective Vital Signs?? Temperature: 98.2 DegF (03/15/22 04:00:00) Temperature Route: Oral (03/15/22 04:00:00) Pulse Rate: 55 bpm (03/15/22 00:00:00) Respiratory Rate: 18 br/min (03/15/22 00:00:00) Systolic Blood Pressure: 114 mm Hg (03/15/22 04:00:00) Diastolic Blood Pressure: 65 mm Hg (03/15/22 04:00:00) Blood pressure sites: Arm, right (03/15/22 04:00:00) Mean Arterial Pressure: 80 mm Hg (03/14/22 15:54:00) Pulse Pressure: 49 mm Hg (03/15/22 04:00:00) Oxygen Saturation: 98 % (03/15/22 04:00:00) Mode of Delivery (Oxygen): Room air (03/15/22 04:00:00) Early Warning Score: 0 (03/15/22 04:31:22) ?? . Physical Exam Constitutional: Alert, in no acute distress. Head EENT: Extraocular muscle movement intact.??Moist mucous membranes.?? Neck: Supple. No JVD. Cardiovascular: S1S2 regular. No murmurs, rubs or gallops. Respiratory: Clear to auscultation. No wheezing or crackles. No use of accessory muscles. Gastrointestinal: Abdomen soft, improved mild tenderness, non-distended. Normal bowel sounds. Extremities: No lower extremity pitting??edema. Neurologic: AAOx3, Speech normal. No focal neurological deficits. Skin: No rash. Psychiatric: Normal mood and affect. Consultants None Patient Education Titles Self-Care for Vomiting and Diarrhea?? Follow-Up Appointments Added Follow Up ?Time Frame ?Comments Dony LAWRENCE MD, Home Guy?3-5 day: call to discuss follow up visit Patient Instructions You presented to the hospital with abdominal pain and gastrointestinal symptoms. You were found to have right sided colitis. You received intravenous antibiotics for five days, with improvement in your symptoms. You also tested positive for COVID. You will need to isolate for 10 days from your positive test on 03/08. Return to the hospital if you develop any confusion, worsening weakness, chest pain, shortness of breath, nausea/vomiting with inability to eat or drink food, or worsening or severe abdominal pain Post Discharge Care Diet: Regular Diet Activity: As tolerated Wound Care: NA Code Status: Full Resuscitation Condition: Fair Prognosis: Fair Home Health Face to Face ^HomeHealthFTF Results Discharge Labs BLOOD COUNT & DIFF WBC 10.6 k/mm3 ()?? 03/10/2022 06:45 RBC 4.52 m/mm3 ()?? 03/10/2022 06:45 Hgb 13.8 Gm/dL ()?? 03/10/2022 06:45 Hct 40.0 % ()?? 03/10/2022 06:45 MCV 88.5 femtoliters ()?? 03/10/2022 06:45 MCH 30.5 pg ()?? 03/10/2022 06:45 MCHC 34.5 g/dL ()?? 03/10/2022 06:45 Platelet Count 132 k/mm3 (Low)?? 03/10/2022 06:45 RDW-SD 39.2 femtoliters ()?? 03/10/2022 06:45 MPV 10.1 femtoliters ()?? 03/10/2022 06:45 Nucleated RBC (Automated) 0.0 #/100 WBC'S ()?? 03/10/2022 06:45 Abs. NRBC 0.0 k/mm3 ()?? 03/10/2022 06:45 Abs. Neut 4.2 k/mm3 ()?? 03/08/2022 18:33 Abs. Lymph 3.7 k/mm3 (High)?? 03/08/2022 18:33 Abs. Gove 0.7 k/mm3 ()?? 03/08/2022 18:33 Abs. Eo 0.1 k/mm3 ()?? 03/08/2022 18:33 Abs. Baso 0.0 k/mm3 ()?? 03/08/2022 18:33 Neut % 48.0 % ()?? 03/08/2022 18:33 Lymph % 42.4 % ()?? 03/08/2022 18:33 Gove % 7.8 % ()?? 03/08/2022 18:33 Eos % 1.3 % ()?? 03/08/2022 18:33 Baso % 0.3 % ()?? 03/08/2022 18:33 Imm Gran 0.2 % ()?? 03/08/2022 18:33 Abs. Imm Gran 0.0 k/mm3 ()?? 03/08/2022 18:33 ?? CARDIAC High Sensitivity Troponin (HSTnT) 14 ng/L (High)?? 03/08/2022 20:14 ? CHEM GENERAL Sodium 141 mmol/L ()?? 03/14/2022 07:40 Potassium 3.9 mmol/L ()?? 03/14/2022 07:40 Chloride 107 mmol/L ()?? 03/14/2022 07:40 Bicarbonate Level 27 mmol/L ()?? 03/14/2022 07:40 Anion Gap 7 ()?? 03/14/2022 07:40 Glucose Level 108 mg/dL (High)?? 03/14/2022 07:40 BUN 7 mg/dL ()?? 03/14/2022 07:40 Creatinine-Blood 0.9 mg/dL ()?? 03/14/2022 07:40 Estimated GFR Creatinine 79 ML/MIN/1.73 M2 ()?? 03/14/2022 07:40 Calcium 8.7 mg/dL ()?? 03/14/2022 07:40 Magnesium 1.9 mg/dL ()?? 03/14/2022 07:40 Protein, Total 4.9 Gm/dL (Low)?? 03/09/2022 06:11 Albumin 3.0 Gm/dL (Low)?? 03/09/2022 06:11 AG Ratio 1.6 ()?? 03/09/2022 06:11 Alkaline Phosphatase 121 units/L (High)?? 03/09/2022 06:11 Lipase 19 units/L ()?? 03/08/2022 18:33 AST (SGOT) 16 units/L ()?? 03/09/2022 06:11 ALT (SGPT) 15 units/L ()?? 03/09/2022 06:11 Bilirubin, Total 0.5 mg/dL ()?? 03/09/2022 06:11 Lactate 2.0 mmol/L ()?? 03/09/2022 08:32 ?? HEME OTHER Hold Blue Top SPECIMEN DISCARDED AFTER 4 HOURS. ()?? 03/09/2022 06:11 ? MISC. CHEMISTRY Hold Green Top SPECIMEN DISCARDED AFTER 1 WEEK ()?? 03/09/2022 06:11 Procalcitonin 0.05 ng/mL ()?? 03/09/2022 08:32 ?? SEROLOGY INF DISEASE C.difficile Toxin Negative. C.Difficile bacterial antigen and toxin not detected. A (N)?? 03/09/2022 08:38 ? STOOL STUDIES GI PCR, Campylobacter NEGATIVE (N)?? 03/09/2022 08:38 GI PCR, Plesiomonas shigelloides NEGATIVE (N)?? 03/09/2022 08:38 GI PCR, Salmonella NEGATIVE (N)?? 03/09/2022 08:38 GI PCR, Vibrio NEGATIVE (N)?? 03/09/2022 08:38 GI PCR, Vibrio cholerae NEGATIVE (N)?? 03/09/2022 08:38 GI PCR, Yersinia enterocolitica NEGATIVE (N)?? 03/09/2022 08:38 GI PCR, Enteroaggregative E coli NEGATIVE (N)?? 03/09/2022 08:38 GI PCR, Enteropathogenic E coli NEGATIVE (N)?? 03/09/2022 08:38 GI PCR, Enterotoxigenic E coli NEGATIVE (N)?? 03/09/2022 08:38 GI PCR, Hjpkc-xytxv-leuvaizfa E coli NEGATIVE (N)?? 03/09/2022 08:38 GI PCR, Shigella/Enteroinvasive E coli NEGATIVE (N)?? 03/09/2022 08:38 GI PCR, Cryptosporidium NEGATIVE (N)?? 03/09/2022 08:38 GI PCR, Cyclospora cayetanensis NEGATIVE (N)?? 03/09/2022 08:38 GI PCR, Entamoeba histolytica NEGATIVE (N)?? 03/09/2022 08:38 GI PCR, Giardia lamblia NEGATIVE (N)?? 03/09/2022 08:38 GI PCR, Adenovirus F 40/41 NEGATIVE (N)?? 03/09/2022 08:38 GI PCR, Astrovirus NEGATIVE (N)?? 03/09/2022 08:38 GI PCR, Norovirus GI/GII NEGATIVE (N)?? 03/09/2022 08:38 GI PCR, Rotavirus A NEGATIVE (N)?? 03/09/2022 08:38 GI PCR, Sapovirus NEGATIVE (N)?? 03/09/2022 08:38 ?? UA/URINALYSIS Appear/Color, Urine YELLOW ()?? 03/09/2022 02:34 Specific Aurora, Urine 1.024 ()?? 03/09/2022 02:34 pH, Urine 6.0 ()?? 03/09/2022 02:34 Albumin, Urine TRACE (Abnormal)?? 03/09/2022 02:34 Glucose, Urine NEGATIVE ()?? 03/09/2022 02:34 Ketones, Urine NEGATIVE ()?? 03/09/2022 02:34 Bilirubin, Urine NEGATIVE ()?? 03/09/2022 02:34 Hemoglobin, Urine NEGATIVE ()?? 03/09/2022 02:34 Nitrite, Urine NEGATIVE ()?? 03/09/2022 02:34 Leukocyte, Urine 1+ (Abnormal)?? 03/09/2022 02:34 Urobilinogen NORMAL mg/dL ()?? 03/09/2022 02:34 WBC's, Urine 8 /HPF (High)?? 03/09/2022 02:34 RBC's, Urine 1 /HPF ()?? 03/09/2022 02:34 Bacteria SLIGHT HPF (Abnormal)?? 03/09/2022 02:34 Squamous Epith <1 /HPF ()?? 03/09/2022 02:34 Mucus SLIGHT /LPF ()?? 03/09/2022 02:34 Hold Urine Culture Testing available 48 hours from time of collection. ()?? 03/09/2022 02:34 ? VIROLOGY Influenza A PCR NEGATIVE ()?? 03/08/2022 19:41 Influenza B PCR NEGATIVE ()?? 03/08/2022 19:41 RSV PCR NEGATIVE ()?? 03/08/2022 19:41 COVID-19 PCR Specimen Source NASAL ()?? 03/08/2022 19:41 COVID-19 PCR Result POSITIVE (Abnormal)?? 03/08/2022 19:41 ? IMAGING CXR 03/08: No acute abnormality. ?? CTA abd/pelv 03/09: 1. ??Moderate inflammatory changes at the right hemicolon, suggestive of infectious/inflammatory colitis. 2. ??No large vessel occlusion. 3. ??Indeterminate 4.5 cm right adnexal solid mass is unchanged from 02/2020. ?? 36??minutes spent on discharge ?? Patient's care and plan discussed with attending, Dr. Beltre. ?? Dena Rivas Internal Medicine PGY2 [id number] Alexsander GUADARRAMA, John: PERFORM Event Display: Discharge/Transfer Note Hospital Authored Date: Attending Attestation:??I saw and examined the patient with the resident team and reviewed the charton the day of service. ??I have discussed the case and its management??with the resident as documented in the resident note on the day of service.??I agree with the resident's note and plan as documented.?? Pt ambulating without difficulty. Benign abd exam.?? Tolerating diet.?? She is happy to go home. Bartolome YOO, Mone: PERFORM Event Display: Patient Education/Instruction Authored Date: Inpatient Adult Discharge Instructions [address] [address] Name: KEKE GRAVES : 1965 Visit: 03/08/2022 23:00:00 Current Date: 03/15/2022 11:56 Account: [id number] Inpatient Adult Discharge Instructions We would like to thank you for allowing us to assist you with your healthcare needs. The following includes patient education materials and information regarding your injury/illness. Our entire staff strives to provide an excellent experience for our patients and their families. PLEASE ENSURE YOU FOLLOW-UP PER THE INSTRUCTIONS BELOW! ?? YOUR OPINION IS IMPORTANT TO US! Please complete the survey you may receive by mail or email. Your feedback will be used to make improvements to the healthcare experiences of our patients and their families. Surveys are administered by [employer]. ?? If further treatment with your primary care physician or another doctor is recommended, it is important for you to keep the appointment. Call your primary care physician or return to the Emergency Department immediately if your condition worsens, fails to improve, or new symptoms develop. If you need to find a doctor, you can call [facility] for a referral at [phone] or toll free at [phone]) or log in to [email or web address].. ?? You can view and manage your care through the patient portal or by using a health care tam of your choosing. [employer] is a website that allows you to securely view your medical information including your hospital discharge summary, office visit summaries, medications and follow-up visits. You can also request appointments, renew medications, and request access to your medical information using a health care tam of your choosing, or just ask a question. You can enroll at [email or web address] or register during your next office visit. You have been discharged from [facility], Patient Care Unit: D6B. If you have any questions regarding these instructions after you leave, please call us and we will be happy to assist you. [facility] Your Care Team Attending Physician John Beltre MD Discharging Providers Dena Rivas DO Reason for Admission Pt coming from home, sober for 2 weeks but relapsed today. Hallucinations and withdrawals reported during 2 weeks of sobriety. Reports drinking 1L of vodka today, n/v, unable to keep food down. AOx4. Your Diagnosis Abdominal pain Nausea and vomiting Acute diarrhea Lactic acidosis Bipolar disorder COVID Right sided colitis Tests Performed Below is a partial list of the tests performed during your hospitalization. You may have had other tests and procedures not included in this list. Please discuss all test results with your provider. Basic Metabolic Panel BUN CBC CBC w/ Differential Cdiff Rapid Toxin Assay Comprehensive Metabolic Panel COVID-19, RSV, and Flu A/B, Rapid PCR Creatinine Electrolytes GI PROFILE, STOOL, PCR High??Sensitivity??Troponin T HOLD BLUE TUBE HOLD GREEN TUBE Lactate Level Lactic Acid Level Lipase Magnesium Level Procalcitonin Level Troponin T, High Sensitivity Urinalysis w/hold for Urine Culture CT Angio Abdomen and Pelvis XR Chest 2 Views Frontal and Lat Primary Care Provider Home Napoles III, MD Advance Directive Health Care Proxy on File Yes - Health Care Proxy No qualifying data available. Discharge Vitals Temperature: 98.2 DegF Height: 173 cm Pulse Rate: 73 bpm Weight: 88.6 kg Respiratory Rate: 18 br/min Body Mass Index:??29.6 kg/m2??High Systolic Blood Pressure: 113 mm Hg Body surface area: 2.06 Diastolic Blood Pressure: 65 mm Hg ?? Oxygen Saturation: 98 % ?? Studies Pending All tests and labs ordered during this hospital stay have been completed unless listed below. Pleasediscuss all pending results with your provider listed above in these instructions. ?? Add On Lab Order What to do next Instructions From Your Doctor You presented to the hospital with abdominal pain and gastrointestinal symptoms. You were found to have right sided colitis. You received intravenous antibiotics for five days, with improvement in your symptoms. You also tested positive for COVID. You will need to isolate for 10 days from your positive test on 03/08. Return to the hospital if you develop any confusion, worsening weakness, chest pain, shortness of breath, nausea/vomiting with inability to eat or drink food, or worsening or severe abdominal pain Discharge Orders Diet:??Regular Diet Activity:??As tolerated Wound Care:??NA Code Status:??Full Resuscitation Condition:??Fair Prognosis:??Fair You Need to Schedule the Following Appointments Follow Up with??Home Napoles III, MD When??Within 3-5 day: call to discuss follow up visit Where: [address] [facility] [place] [id number]- Discharge Medications KEKE GRAVES :1965 Visit Date:03/08/2022 Medications: Please continue your medications until treatment is completed or stopped by your provider. Medications not listed below should be discontinued. Discuss any questions related to medications with your provider. What How Much When Instructions Next Dose Changed cariprazine (Vraylar 3 mg oral capsule) 1 capsule Daily resume home regimen Unchanged Atorvastatin (atorvastatin 20 mg oral tablet) 1 tab(s) Oral Daily 03/16 9 AM Unchanged Clonazepam (KlonoPIN 1 mg oral tablet) 1 tab(s) Oral Twice a day as needed for Anxiety Duration: 3 Days Do not give within 1 hour of Dilaudid or if sleepy, patient's home med ?? as needed Unchanged Lamotrigine (LaMICtal 100 mg oral tablet) 3 tab(s) Oral Daily tonight 03/15 Unchanged Metformin (metFORMIN 500 mg oral tablet) 1 Each Oral Twice a day Duration: 30 Days resume home regimen Unchanged Omeprazole (omeprazole 20 mg oral enteric coated capsule) 1 capsule Oral Daily 03/16 9 AM Unchanged Sertraline (Zoloft 100 mg oral tablet) 2 tab(s) Oral Daily Duration: 30 Days 03/16 9 AM Unchanged Topiramate (topiramate 100 mg oral tablet) 100 Milligram Oral Daily at Bedtime Duration: 30 Days tonight 03/15 ?? What How Much When Comments Stop Taking Acamprosate (acamprosate 333 mg oral delayed release tablet) 666 Milligram Oral 3 times a day with meals Duration: 30 Days Stop Taking Acetaminophen (Tylenol 325 mg oral tablet) 2 tab(s) Oral Every 6 hours Stop Taking Folic Acid (folic acid 1 mg oral tablet) 1 tab(s) Oral Daily Stop Taking Multivitamin (multivitamin Multiple Vitamins oral tablet) 1 tab(s) Oral Daily Duration: 30 Days Stop Taking Zolpidem (Zolpidem Tablet) 10 Milligram Oral Daily at Bedtime as needed for Sleep Test Results Below is a partial list of the most recent Laboratory test results done prior to this discharge. You may have had other tests and procedures not included in this list. Please discuss all test results with your provider. Basic Metabolic Panel (03/14/2022) ???Sodium - 141 mmol/L???Potassium - 3.9 mmol/L???Chloride - 107 mmol/L???Bicarbonate Level - 27 mmol/L???Anion Gap - 7???Glucose Level - 108 mg/dL???BUN - 7 mg/dL???Creatinine-Blood - 0.9 mg/dL???Estimated GFR Creatinine - 79 ML/MIN/1.73 M2???Calcium - 8.7 mg/dL BUN (03/10/2022) ???BUN - 16 mg/dL CBC (03/10/2022) ???WBC - 10.6 k/mm3???RBC - 4.52 m/mm3???Hgb - 13.8 Gm/dL???Hct - 40.0 %???MCV - 88.5 femtoliters???MCH - 30.5 pg???MCHC - 34.5 g/dL???Platelet Count - 132 k/mm3???RDW-SD - 39.2 femtoliters???MPV - 10.1 femtoliters???Nucleated RBC (Automated) - 0.0 #/100 WBC'S???Abs. NRBC - 0.0 k/mm3 CBC w/ Differential (03/08/2022) ???WBC - 8.8 k/mm3???RBC - 4.87 m/mm3???Hgb - 14.9 Gm/dL???Hct - 43.9 %???MCV - 90.1 femtoliters???MCH - 30.6 pg???MCHC - 33.9 g/dL???Platelet Count - 212 k/mm3???RDW-SD - 40.1 femtoliters???MPV - 9.7 femtoliters???Nucleated RBC (Automated) - 0.2 #/100 WBC'S???Abs. NRBC - 0.0 k/mm3???Abs. Neut - 4.2 k/ mm3???Abs. Lymph - 3.7 k/mm3???Abs. Gove - 0.7 k/mm3???Abs. Eo - 0.1 k/mm3???Abs. Baso - 0.0 k/mm3???Neut % - 48.0 %???Lymph % - 42.4 %???Gove % - 7.8 %???Eos % - 1.3 %???Baso % - 0.3 %???Imm Gran - 0.2 %???Abs. Imm Gran - 0.0 k/mm3 Cdiff Rapid Toxin Assay (03/09/2022) ???C.difficile Toxin - Negative. C.Difficile bacterial antigen and toxin not detected. A Comprehensive Metabolic Panel (03/09/2022) ???Sodium - 135 mmol/L???Potassium - 4.2 mmol/L???Chloride - 102 mmol/L???Bicarbonate Level - 23 mmol/L???Anion Gap - 10???Glucose Level - 93 mg/dL???BUN - 20 mg/dL???Creatinine-Blood - 0.6 mg/dL???Estimated GFR Creatinine - 102 ML/MIN/1.73 M2???Calcium - 7.6 mg/dL???Protein, Total - 4.9 Gm/dL???Albumi n - 3.0 Gm/dL???AG Ratio - 1.6???Alkaline Phosphatase - 121 units/L???AST (SGOT) - 16 units/L???ALT (SGPT) - 15 units/L???Bilirubin, Total - 0.5 mg/dL COVID-19, RSV, and Flu A/B, Rapid PCR (03/08/2022) ???Influenza A PCR - NEGATIVE???Influenza B PCR - NEGATIVE???RSV PCR - NEGATIVE???COVID-19 PCR Specimen Source - NASAL???COVID-19 PCR Result - POSITIVE Creatinine (03/11/2022) ???Creatinine-Blood - 0.6 mg/dL???Estimated GFR Creatinine - 102 ML/MIN/1.73 M2 Electrolytes (03/11/2022) ???Sodium - 135 mmol/L???Potassium - 3.6 mmol/L???Chloride - 101 mmol/L???Bicarbonate Level - 22 mmol/L???Anion Gap - 12 GI PROFILE, STOOL, PCR (03/09/2022) ???GI PCR, Campylobacter - NEGATIVE???GI PCR, Plesiomonas shigelloides - NEGATIVE???GI PCR, Salmonella - NEGATIVE???GI PCR, Vibrio - NEGATIVE???GI PCR, Vibrio cholerae - NEGATIVE???GI PCR, Yersinia enterocolitica - NEGATIVE???GI PCR, Enteroaggregative E coli - NEGATIVE???GI PCR, Enteropathogenic E coli - NEGATIVE???GI PCR, Enterotoxigenic E coli - NEGATIVE???GI PCR, Uorfr-kzufu-dyaemhdrv E coli - NEGATIVE???GI PCR, Shigella/Enteroinvasive E coli - NEGATIVE???GI PCR, Cryptosporidium - NEGATIVE???GI PCR, Cyclospora cayetanensis - NEGATIVE???GI PCR, Entamoeba histolytica - NEGATIVE???GI PCR, Giardia lamblia - NEGATIVE???GI PCR, Adenovirus F 40/41 - NEGATIVE???GI PCR, Astrovirus - NEGATIVE???GI PCR, Norovirus GI/GII - NEGATIVE???GI PCR, Rotavirus A - NEGATIVE???GI PCR, Sapovirus - NEGATIVE High??Sensitivity??Troponin T (03/08/2022) ???High Sensitivity Troponin (HSTnT) - 14 ng/L HOLD BLUE TUBE (03/09/2022) ???Hold Blue Top - SPECIMEN DISCARDED AFTER 4 HOURS. HOLD GREEN TUBE (03/09/2022) ???Hold Green Top - SPECIMEN DISCARDED AFTER 1 WEEK Lactate Level (03/09/2022) ???Lactate - 2.7 mmol/L Lactic Acid Level (03/09/2022) ???Lactate - 2.0 mmol/L Lipase (03/08/2022) ???Lipase - 19 units/L Magnesium Level (03/14/2022) ???Magnesium - 1.9 mg/dL Procalcitonin Level (03/09/2022) ???Procalcitonin - 0.05 ng/mL Troponin T, High Sensitivity (03/08/2022) ???High Sensitivity Troponin (HSTnT) - 14 ng/L Urinalysis w/hold for Urine Culture (03/09/2022) ???Appear/Color, Urine - YELLOW???Specific Aurora, Urine - 1.024???pH, Urine - 6.0???Albumin, Urine- TRACE???Glucose, Urine - NEGATIVE???Ketones, Urine - NEGATIVE???Bilirubin, Urine - NEGATIVE???Hemoglobin, Urine - NEGATIVE???Nitrite, Urine - NEGATIVE???Leukocyte, Urine - 1+???Urobilinogen - NORMAL???WBC's, Urine - 8 /HPF? ?RBC's, Urine - 1 /HPF? ?Bacteria - SLIGHT? ?Squamous Epith - <1 /HPF? ?Mucus - SLIGHT???Hold Urine Culture - Testing available 48 hours from time of collection. Immunizations This Visit Not Given Vaccine Commentsinfluenza virus vaccine, inactivated Patient Refuses Allergies (NKA means No Known Allergies) Latuda Problems Active Problems??(2) Bipolar disorder?? COVID-19?? Education Materials Below is the list of Educational Leaflet Providered with your Discharge Instructions. Coronavirus Disease 2019 (COVID-19): Overview?? Self-Care for Vomiting and Diarrhea?? Valuables and Belongings I fully understand and agree that [facility] accepts no responsibility for all my personal property including clothing, toilet articles, radios, jewelry, dentures, hearing aids, rings, money, or any other property that is in my possession or is brought to me after admission. I understand certain valuables may be placed in a hospital safe for a short period of time. I understand that the hospital is not liable for loss or damage due to accident, fire, or other natural occurrence while said property is in the safe. I accept full responsibility for any personal property that I keep with me, and will not hold the hospital responsible in case of loss or disappearance. I acknowledge that i have been encouraged to send valuables and belongings home. ?? Safe envelope number: [id number] Review of Valuable and Belonging List: With patient Disposition of Belongings: Valuables Locked Date for Pt to Sign Valuables/Belongings: 03/09/22 16:03:00 ?? Other Discharge Information ? Pulmonary Rehab Status?? Pulmonary Rehab Discharge Status?? Respiratory Rate: 18 br/min ? Common Emergency Awareness Tips IS IT A STROKE? Act FAST and Check for these signs: FACE Does the face look uneven? ARM Does one arm drift down? SPEECH Does their speech sound strange? TIME Call at any sign of stroke ?? Heart Attack Signs Chest discomfort: Most heart attacks involve discomfort in the center of the chest and lasts more than a few minutes, or goes away and comes back. It can feel like uncomfortable pressure, squeezing, fullness or pain. Discomfort in upper body: Symptoms can include pain or discomfort in one or both arms, back, neck, jaw or stomach. Shortness of breath: With or without discomfort. Other signs: Breaking out in a cold sweat, nausea, or lightheaded. Remember, MINUTES DO MATTER. If you experience any of these heart attack warning signs, call to get immediate medical attention! ?? Smoking can increase your chances of developing chronic health problems and can cause harmful effects to other family members in your house. If you smoke, you are strongly encouraged to quit. Please call [facility] at [phone] or 3-820-533[employer] (6076) or log in to [email or web address] for referrals to smoking cessation programs. ?? The National Suicide Prevention Hotline is available 07/10 if you or someone you know needs to find areason to keep living. By calling 1-170-381-[employer] (7785) you'll be connected to a skilled, trained counselor at a crisis center in your area. INPATIENT DISCHARGE INSTRUCTIONS SIGNATURE PAGE KEKE GRAVES Location:[facility] Hospital Registration Date and Time:03/08/2022 23:00 [facility] Primary Care Physician: Dony LAWRENCE MD, Home Guy, I KEKE GRAVES, have received the above patient education materials/instructions and have verbalized understanding. If ambulance or transport services are being used I further acknowledge being given a choice of service. ?? If you need to contact me, please call me at this number: . Patient/Storage Worker Name: Patient/Storage Worker Signature: Relationship to Patient: Witness Name/Signature: Date: Mone Mancuso RN: PERFORM Event Display: Patient Education Leaflets Authored Date: [id number] Coronavirus Disease 2019 (COVID-19): Overview ?? 28744 Coronavirus Disease 2019 (COVID-19): Overview Coronavirus disease 2019 (COVID-19) is an illness that infects the lungs. It's caused by a type of coronavirus. The virus is called SARS-CoV-2. There are many types of coronaviruses. They are a commoncause of colds and bronchitis. They can cause a lung infection called pneumonia. Symptoms can range from mild to severe. Some people have no symptoms. These types of viruses are also found in some animals. Viruses change (mutate) all the time. The changes lead to different forms of a virus. These are called variants. COVID-19 variants may spread more easily from person to person. They may cause milder symptoms. Or they may cause more severe symptoms.?? The virus spreads and infects people easily. It can infect a person more easily if they are not immune to it. The virus most often spreads through droplets of fluid that a person coughs or sneezes into the air. In some cases, you can get it from touching a surface with the virus on it and then touching your eyes, nose, or mouth. To help prevent spreading the infection, wash your hands often, or use an alcohol-based hand newspaper vendor. To learn more For the latest from the CDC: ? Go to the CDC website ??? Call 560-LXU-CLRN (510-636-3018) ? What are the symptoms of COVID-19? Some people have no symptoms. Some have mild symptoms. Others may have severe symptoms. This variesfrom person to person. Symptoms may start 2 to 14 days after contact with the virus. They can include: ??? Fever ??? Chills ??? Coughing ??? Trouble breathing or feeling short of breath ??? Sore throat ??? Stuffy or runny nose ??? Headache ??? Body aches ??? Tiredness ??? Nausea, vomiting, diarrhea, orbelly pain ??? New loss of sense of smell or taste Check your symptoms with the CDC???s Coronavirus Self-Drawer Fitter. ?? What are possible complications of COVID-19? The virus can cause an infection in the lungs. This is called pneumonia. This can lead to in some cases. Experts are still learning more about COVID-19 problems. Problems may include: ??? Low blood pressure ??? Kidney failure ??? Inflammation of the brain or heart ??? Rashes Some people are at higher risk for problems. This includes: ??? Older adults ??? People with heart or lung disease ??? People with diabetes or kidney disease ??? People with health conditions that limit the immune system ??? People who take medicines that limit the immune system Rarely, a child may have a severe complication. This is called multisystem inflammatory syndrome inchildren (MIS-C). MIS-C seems to be like Kawasaki disease. This is a rare illness. It causes swelling of blood vessels and body organs. MIS can also happen in adults. But this is less common. ? How is COVID-19 diagnosed? Your healthcare provider will ask: ??? What symptoms you have ??? Where you live ??? If you???ve traveled recently ??? If you???ve hadcontact with sick people ??? If you are vaccinated against COVID-19 ??? If you have had COVID-19 Know your testing options with the CDC's COVID-19 Viral Testing Tool. You may have 1 of these testsfor COVID-19: ??? Viral (molecular) test. You may also hear this called a PCR or RT-PCR test. Viral tests are very accurate. A viral test looks for the genetic material (RNA) of the SARS-CoV-2 virus. There are a few ways to do this. A swab may be wiped inside your nose or throat. Or a long swab may be put into your nose down to the back of your throat. Or a sample of your saliva may be taken. Your test results may be back in 45 minutes to a few hours. This depends on the type of test. Some tests must be sent to a lab. These can take several days for the results. You can now get test kits to use at home. Some ofthese need a prescription. Follow the instructions in the kit closely if you use a home kit. Some kits show results quickly at home. Others must be sent to a lab for the results. ??? Antigen test. Thiscan find proteins from the SARS-CoV-2 virus. A swab may be wiped inside your nose or throat. Or a long swab may be put into your nose down to the back of your throat. Some results are back within 15 to60 minutes. This depends on the type of test. Positive results are very accurate. But false positiveresults can happen. And the results can be negative even in people with COVID-19. Antigen tests are more likely to miss a COVID-19 infection than a viral (molecular) test. You may need to have a viral test if your antigen test is negative but you have symptoms of COVID-19. ??? Breath test. This rapid test is not widely available at this time. It finds SARS-CoV-2 infection in the breath. The test is done at providers' offices, hospitals, and mobile testing sites. You may have other tests if your provider thinks or confirms that you have COVID-19. These tests may include: ??? Antibody blood test. This type of test can show if you had the virus in the past. It shows antibodies for the virus in the blood. The accuracy of these tests varies. And they are not available everywhere. An antibody test may not show if you have an infection right now. This is because it can take up to a few weeks for your body to make antibodies. None of the antibody tests can yet be used to tell if a person is immune to the virus. ??? Sputum culture. If you have a wet cough, you may be askedto cough up a bit of mucus (sputum) from your lungs. This is tested for the virus. It may be tested for pneumonia. ??? Imaging tests. You may have a chest X-ray or CT scan. Can you get COVID-19 again? Yes, you can get COVID-19 more than once. You may not have immunity. You could have lost the immunity. Or you may get COVID-19 from a different strain (variant) of the virus that you are not immune to. But the COVID-19 vaccine helps lower the risk for COVID-19. ?? Vaccines for COVID-19 The FDA and CDC advise vaccines to help prevent COVID-19. The vaccines can also make the illness less severe. It can keep you from needing to go to the hospital.?? And it can prevent the spread of thevirus to others. No vaccine is 100% effective at preventing an illness. But getting a vaccine is important. COVID-19 vaccines are available for people as young as 6 months old. or people can have the vaccine. Vaccines are given as a primary series.Boosters are given later to help with protection. The vaccines are given as a shot (injection) into the muscle. Ask your healthcare provider which vaccine is best for you and your family. There is a 1- dose vaccine from Troodon (J&&) for people ages 18 and older. Or a 2-dose vaccine from Novavax for people ages 12 and older.Two-dose Pfizer and Moderna vaccines are for people as young as 6 months old. They are given in several doses a few weeks apart. People with a weak immune system may have other advice. Talk with your healthcare provider about which vaccine is best for you and your family. COVID-19 vaccine booster shots People age 5 or older can get a COVID-19 booster shot. It's given a few months after their primary series. Boosters can help with protection against COVID-19 that may have decreased over time. Booster advice varies by vaccine, age, health, and COVID-19 variants. Talk with your provider aboutyour risk and when to get a booster. ?? How is COVID-19 treated? The best treatments right now are those to help your body while it fights the virus. This is calledsupportive care. It includes: ??? Rest.This helps your body fight the illness. ??? Fluids. Try to drink 6 to 8 glasses of fluids every day. Ask your provider which drinks are best for you. Don't have drinks with caffeine or alcohol. ??? Gxeg-gbf-ghudmfn (OTC) medicine. These are used to help ease pain and reduce fever. Ask your provider which OTC medicine is safe for you to use. Talk with your provider if you have confirmed COVID-19. You may qualify for medicines approved by the FDA to prevent severe COVID-19 infection. You may need to stay in the hospital for severe illness. Your care may include: ??? IV fluids. These are given through a vein. This helps to replace fluids in your body. ??? Oxygen. You may be given extra oxygen. Or you may be put on a breathing machine (ventilator). This is done so you get enough oxygen in your body. ??? Prone positioning. Your healthcare team may regularly turn you on your stomach. This is called prone positioning. It helps increase the amount of oxygen you get to your lungs. Follow their instructions on position changes while you're in the hospital and at home. ??? Antivirals and monoclonal antibodies. The FDA has approved certain antivirals and monoclonal antibodies to treat COVID-19. These treatments are for people who are more likely to get very sick. These treatments are not available for everyone. Talk with your healthcare provider to learn more. o Antivirals stop the SARS-CoV-2 virus from spreading in the body. o Monoclonal antibodies help the immune system fight the virus. ? Steroids or other anti-inflammatory medicines. These are used to lessen the inflammation that some people with COVID-19 have. Inflammation can lead to more trouble breathing. It can cause other complications or . ??? COVID-19 convalescent plasma. Plasma is the liquid part of blood. People who had COVID-19 may be asked to donate plasma. This is called COVID-19 convalescent plasma. The plasma may have antibodies. These can help fight COVID-19 in people who are very ill with it. Checkwith your provider to see if this is an option in your area. ?? Are you at risk for COVID-19? You are at risk for COVID-19 if any of these apply to you: ??? You live in or traveled to an area with cases of COVID-19 ??? You had close contact (within 6 feet) with someone who had COVID-19 COVID-19 may be spread by people who don't show symptoms. Date last modified: 11/22/2021 ?? Last Reviewed Date: 2020 ?? 4533-7302 [employer]. All rights reserved. This information is not intended as a substitute for professional medical care. Always follow your healthcare professional's instructions. ??Dena Rivas DO: PERFORM Event Display: Patient Education Leaflets Authored Date: [id number] Self-Care for Vomiting and Diarrhea ?? 37619 Self-Care for Vomiting and Diarrhea Vomiting and diarrhea can make you feel awful. Your stomach and bowels are reacting to an irritant.This might be??food, medicine, or a virus. Vomiting and diarrhea are 2 ways your body tries to remove the problem from your system. Nausea is a symptom that prevents you from eating. This can give yourstomach and bowels time to recover. Self-care can help to ease your discomfort. Drink liquids Drink or sip liquids so you don't lose too much fluid (dehydration). To do this: ??? Choose clear liquids such as water or broth. ??? Don't have drinks with a lot of sugar in them. This includes juiceand soda. These can make diarrhea worse. ??? If you have severe vomiting or diarrhea, don't drink sports drinks or electrolyte drinks. These don't have the right mix of water, sugar, and minerals. Theycan make the symptoms worse. Try an oral rehydration solution.? Suck on ice chips if nausea makes it hard for you to drink. ?? When you???re able to eat again Try these tips: ??? As your appetite comes back, you can slowly go back to your normal diet. ??? Ask your healthcare provider if you should not eat certain foods. ?? Medicines When considering medicines: ??? Don't use medicines to stop diarrhea or vomiting unless your healthcare provider tells you to do so. Vomiting and diarrhea can help your body get rid of harmful substances. ??? Some medicines can cause vomiting and diarrhea. Talk with your provider about all medicines you take. Ask which ones may cause these symptoms ??? Any medicine with aspirin can bother your stomach. So don't use them when you have an upset stomach. ??? Some OTC antihistamines can help control nausea. Other medicines can help soothe an upset stomach. Ask your healthcare provider which medicines may help you. ?? When to call your healthcare provider Call your healthcare provider care right away if you have any of these: ??? Bloody or black vomit or stools ??? Severe, steady belly pain ??? Vomiting with a severe headache or stiff neck ??? Vomitingafter a head injury ??? Vomiting and diarrhea together for more than 1 hour ??? Can't sip liquids after more than 12??hours ??? Vomiting that lasts more than 24 hours ??? Severe diarrhea that lasts more than 2??days ??? Fever of 100.4??F (38.0??C) or higher, or as advised ??? Yellowish color to your skin or the whites of your eyes ??? Can't urinate? Last Reviewed Date: 2021 ?? [id number] [employer]. All rights reserved. This information is not intended as a substitute for professional medical care. Always follow your healthcare professional's instructions. ?? Event Display: Cardiac Rhythm Strips Authored Date: Kamala , KENA S: Nate Mart MD: VERIFY Event Display: Result: Authored Date: Chest 2 Views Frontal and Lat Hx of Present Illness: Pt states she has been sober x5 months but relapsed 3 weeks ago and has been drinking 1L vodka day. Last drink was today. NVD x1 week, denies bloody emesis or stool. Has withdrawn in the past but denies seizures, hallucinations. Also c o weakness.; Reason: Other:; Traumatic Chest Pain; Clinical Question(s): Pneumothorax, Fracture COMPARISON: March 21, 2020 FINDINGS: LINES AND TUBES: None. LUNGS AND PLEURA: Clear lungs. Normal pulmonary vascularity. No pleural effusion. No pneumothorax. HEART, MEDIASTINUM AND ЮЛИЯ: Heart is normal in size. Normal mediastinal and hilar contour. BONES AND SOFT TISSUES: No acute abnormality. IMPRESSION: No acute abnormality. WSN: [id number] Ordering Physician: Erica Hazel Dictated By: Nate Curiel MD Dictated Date/Time: 03/08/22 6:52 pm Reviewed By: Nate Curiel MD Signed By: Nate Curiel MD Signed Date/Time: 03/08/22 6:52 pm Transcribed By: DYANA Transcribed Date/Time: 03/08/22 6:50 pm Hospital Progress note Bartolome YOO, Mone: PERFORM, SIGN, VERIFY Event Display: Progress Note Hospital Authored Date: Patient: KEKE GRAVES Age: 57 years Sex: Female : 1965 Associated Diagnoses: None Author: Mone Mancuso RN Findings Problem Related to Alteration in Respiratory Function (new) : Alteration in Respiratory Function/new 03/15/2022 11:00 EST Alteration in Resp Status Related to COVID - 19 Goals & Outcomes, Respiratory Pt will maintain/resume baseline physical assessment, Pt will notdevelop complications r/t mechanical ventilation, Pt will maintain adequate nutritional intake, Pt will maintain/resume normal fluid/electrolyte balance, Pt will not develop complications r/t immobility, Pt will demonstrate proper technique w/self care procedures Interventions, Respiratory Assess for and report S&S of respiratory distress, Position for comfort & optimal oxygenation, Monitor sputum color & consistency. Report changes to MD, Teach/encourage use of incentive spirometer, Teach purse lip breathing as needed for breathing retraining, Teach tripod positioning to promote air exchange BH Goals/Interventions, Respiratory Yes Respiratory, Problem Start 03/10/2022 22:25 Reviewed Plan with, Respiratory Patient Patient Progression, Respiratory Patient progressing according to plan . Evaluation pt a&ox3. VSS. pt discharged today, left unit via wheelchair at 1325 accompanied by nurse educator. discharge paperwork complete, questions answered and encouraged.. Discharge Information Case Management Discharge Plan : Case Management Discharge Plan Data 03/15/2022 14:07 EST Discharge Level of Care at Discharge Home/Shelter/Foster Care Rehabilitation Discharge : Rehab Discharge Index 03/14/2022 9:02 EST Comments on treatment indicated 57 y/o COVID + F presents c abdominal pain. Pt Ic all functional mobility. No acute PT indicated. Rec home. Full chart review completed Yes Other findings Low complexity eval 2/ PMH and circumstances of hospitalization.Se Connolly RN: PERFORM, SIGN, VERIFY Event Display: Progress Note Hospital Authored Date: Patient: KEKE GRAVES Age: 57 years Sex: Female : 1965 Associated Diagnoses: None Author: Se Connolly RN Findings Problem Related to Alteration in Comfort 03/14/2022 18:00 EST Alteration in Comfort Related to Disease process Goals & Outcomes: Comfort Pt will report acceptable level of comfort & pain control, Pt will demonstrate necessary skills to manage pain, Non-verbal indicators will indicate comfort/pain control Interventions Implemented: Comfort Assess pain using appropriate pain scale/tools, Assess aggravating factors & prevent them accordingly, Assess alleviating factors & promote them accordingly Goals/Interventions, Comfort Yes Comfort, Problem Start 03/12/2022 18:18 Reviewed plan with, Comfort Patient Patient Progression, Comfort Pt progressing according to plan Comfort, Problem Ongoing Yes . Alteration in Respiratory Function (new) : Alteration in Respiratory Function/new 03/14/2022 18:00 EST Alteration in Resp Status Related to COVID - 19 Goals & Outcomes, Respiratory Pt will maintain/resume baseline physical assessment, Pt will notdevelop complications r/t mechanical ventilation, Pt will maintain adequate nutritional intake, Pt will maintain/resume normal fluid/electrolyte balance, Pt will not develop complications r/t immobility, Pt will demonstrate proper technique w/self care procedures Interventions, Respiratory Assess/monitor tolerance to IV infusions; verify rate/dose, Assess for and report S&S of respiratory distress, Initiate VAP prevention strategies, Position for comfort & optimal oxygenation, Chest tube drainage, maintain drainage/suction as ordered, Monitor sputum color & consistency. Report changes to MD, Teach/encourage use of incentive spirometer, Teach the proper use of inhalers, Teach Pt/caregiver Smoking cessation education, Teach purse lip breathing as needed for breathing retraining, Teach tripod positioning to promote air exchange Goals/Interventions, Respiratory Yes Respiratory, Problem Start 03/10/2022 22:25 Reviewed Plan with, Respiratory Patient Patient Progression, Respiratory Patient progressing according to plan . Narrative/Incidental Pt alert and oriented x3, stated pain much improved , anxious throughout shift. Pt upset regarding discharge today, spoke with social work and MD and pt ended up staying. Independent with ambulation, Denied N/v/d. Purposeful hourly rounding provided, bed locked and in lowest position. Call harrell within reach. . Discharge Information Rehabilitation Discharge : Rehab Discharge Index 03/14/2022 9:02 EST Comments on treatment indicated 57 y/o COVID + F presents c abdominal pain. Pt Ic all functional mobility. No acute PT indicated. Rec home. Full chart review completed Yes Other findings Low complexity eval 2/2 PMH and circumstances of hospitalization.Dena Rivas DO: PERFORM, MODIFY Event Display: Progress Note Hospital Authored Date: Patient: ??KEKE GRAVES ? Age:??57 Years?Sex:??Female?:??1965?? Subjective Overnight, no acute events. ?? This morning, patient reports feeling not well. She reports improved abdominal pain and diarrhea. She is able to tolerate her diet. She feels that she is too weak to go home as she lives alone. She wasevaluated by physical therapy, who recommended she could go home without services. Patient feels like she needs one more night to feel safe to go home. ?? Review of Systems A full review of systems was completed and is otherwise negative except as mentioned in history of present illness. Objective Vital Signs?? Temperature: 99.6 DegF (03/14/22 08:00:00) Temperature Route: Oral (03/14/22 08:00:00) Pulse Rate: 73 bpm (03/14/22 08:00:00) Respiratory Rate: 18 br/min (03/14/22 08:00:00) Systolic Blood Pressure: 119 mm Hg (03/14/22 08:00:00) Diastolic Blood Pressure: 61 mm Hg (03/14/22 08:00:00) Blood pressure sites: Arm, right (12/29/22 08:00:00) Pulse Pressure: 58 mm Hg (03/14/22 08:00:00) Oxygen Saturation: 99 % (03/14/22 08:00:00) Mode of Delivery (Oxygen): Room air (03/14/22 08:00:00) Early Warning Score: 0 (03/14/22 08:53:48) ?? Intake/Output? 03/08 23:00 03/14 07:00 03/13 07:00 03/12 07:00 03/11 07:00 ?? 03/14 13:19 03/14 13:19 03/14 06:59 03/13 06:59 03/12 06:59 Intake ? 4930 ?750 ? 1500 ?300 ?780 Output ?0 ?0 ?0 ?0 ?0 Net Total ? 4930 ?750 ? 1500 ?300 ?780 ? Urine Count ? 13 ?0 ?4 ?0 ?5 Emesis Count ?2 ?0 ?0 ?0 ?0 ?? Physical Exam Constitutional: Alert, in no acute distress. Head EENT: Extraocular muscle movement intact.??Moist mucous membranes.?? Neck: Supple. No JVD. Cardiovascular: S1S2 regular. No murmurs, rubs or gallops. Respiratory: Clear to auscultation. No wheezing or crackles. No use of accessory muscles. Gastrointestinal: Abdomen soft, diffuse mild tenderness, non-distended. Normal bowel sounds. Extremities: No lower extremity pitting??edema. Neurologic: AAOx3, Speech normal. No focal neurological deficits. Skin: No rash. Psychiatric: Normal mood and affect. Results Recent Labs CHEM GENERAL Sodium 141 mmol/L ()?? 03/14/2022 07:40 Potassium 3.9 mmol/L ()?? 03/14/2022 07:40 Chloride 107 mmol/L ()?? 03/14/2022 07:40 Bicarbonate Level 27 mmol/L ()?? 03/14/2022 07:40 Anion Gap 7 ()?? 03/14/2022 07:40 Glucose Level 108 mg/dL (High)?? 03/14/2022 07:40 BUN 7 mg/dL ()?? 03/14/2022 07:40 Creatinine-Blood 0.9 mg/dL ()?? 03/14/2022 07:40 Estimated GFR Creatinine 79 ML/MIN/1.73 M2 ()?? 03/14/2022 07:40 Calcium 8.7 mg/dL ()?? 03/14/2022 07:40 Magnesium 1.9 mg/dL ()?? 03/14/2022 07:40 Assessment/Plan Keke Graves is a 57 year old female with PMH of alcohol use disorder and bipolar disorder who presented on 03/08 with one week of abdominal pain and GI symptoms. Patient was admitted for further management of infectious colitis and dehydration. ?? Right sided colitis Abdominal pain - improving Diarrhea - improving Nausea and vomiting - resolved Patient presenting with 1 week of abdominal pain and N/V/D She reports taking OTC advil recently CT showing moderate inflammatory changes at right hemicolon, concerning for infectious vs inflammatory colitis GI stool profile PCR negative, C diff negative Her diet has been advanced and she is tolerating, continues to have some abdominal pain and diarrhea ?? Plan: -Will complete??ceftriaxone and metronidazole 03/10-03/14 -Continue dental soft diet -Zofran PRN nausea and vomiting ?? COVID 19 Infection Asymptomatic, vaccinated x2 with 1 booster Does not require oxygen ?? Plan: -Continue to monitor ?? Alcohol use disorder Recently at rehab where patient was sober for 4 months Discharged 3 weeks ago but had relapse, last drink on 03/07 Patient declined social work and addiction medicine consult Not in withdrawal ?? Plan: -CIWA discontinued -MVI, thiamine, pyridoxine ?? Indeterminate 4.5cm right adnexal solid mass Unchanged from 02/2020 ?? Plan: -F/u with PCP ?? Chronic stable resolved medical conditions Bipolar disorder: continue lamotrigine, topamax, zoloft, clonazepam. Hold cariprazine which is not on formulary. Lactic acidosis - resolved: likely in setting of dehydration ?? Quality Measures Diet: Dental Soft DVT Prophylaxis: Lovenox Code: FULL OMN/Dispo: patient amenable to dc home reji, last dose of IV abx tonight, home without services reji ?? Patient's care and plan discussed with attending, Dr. Beltre. ?? Dena Rivas DO Internal Medicine PGY2 [phone] Alexsander GUADARRAMA, John: PERFORM Event Display: Progress Note Hospital Authored Date: Attending Attestation:??I saw and examined the patient with the resident team and reviewed the charton the day of service. ??I have discussed the case and its management??with the resident as documented in the resident note on the day of service.??I agree with the resident's note and plan as documented. CTA Abdominal vessels and Pelvis vessels W contrast IV BHSPowerscribe , CIS S: TRANSCRIBE Abdon Wall MD A: SIGN Reilly Ram MD: VERIFY Event Display: Result: Authored Date: CT Angio Abdomen and Pelvis INDICATION: ABDOMINAL PAIN, WORSENING LACTIC ACID; Clinical Question(s): Ischemic colitis Infection COMPARISON: CT pelvis 03/05/2020. TECHNIQUE: Axial images were obtained from diaphragm through the pelvis during the intravenous administration of iodinated contrast. 100 cc of Omnipaque 300 was administered intravenously. Delayed (venous) images were also acquired for evaluation of the portal veins. Sagittal and coronal maximum intensity projection (MIP) images were reconstructed and rendered in both arterial and venous phases. Weight-based protocol using automatic tube modulation was used to optimize exposure parameters. RADIATION DOSE PARAMETERS: CTDIvol Body: 14.95 mGy, DLP Body: 2273 mGy*cm. VASCULAR FINDINGS: Abdominal aorta: No aortic aneurysm or dissection. Celiac axis: Patent. Superior mesenteric artery: Patent. Right renal artery: Patent. Left renal artery: Patent. Inferior mesenteric artery: Patent. Right common iliac artery: Patent. Right internal iliac artery: Patent. Right external iliac artery: Patent. Right common femoral artery: Patent. Visualized right superficial and deep femoral arteries: Patent. Left common iliac artery: Patent. Left internal iliac artery: Patent. Left external iliac artery: Patent. Left common femoral artery: Patent. Visualized left superficial and deep femoral arteries: Patent. IVC and hepatic veins: Patent. Portal vein: Patent. Splenic vein: Patent. Inferior mesenteric vein: Patent. Iliac and femoral veins: Patent. NONVASCULAR FINDINGS: Visualized Chest: Lung bases are clear. No pleural effusion. The heart is normal in size. No pericardial effusion. Diaphragm: Normal. Liver: Normal. Gallbladder: Absent consistent with prior cholecystectomy. Bile ducts: No biliary ductal dilation. Spleen: Normal. Pancreas: Normal. Adrenal glands: Normal. Kidneys and ureters: No hydronephrosis, stones, or suspicious masses. Bladder: Normal. Reproductive organs: 4.5 cm circumscribed solid right adnexal lesion is unchanged from 02/2020. Stomach, small bowel, and large bowel: The stomach is normal. The small and large bowel are normal in caliber without evidence of obstruction. Chronic submucosal fat deposition throughout the colonic wall suggestive of prior inflammation. Moderate wall thickening of the ascending colon, with moderate s urrounding fat stranding and thickening of the peritoneal membrane. Appendix: Normal, best seen on coronal 50. Peritoneum and retroperitoneum: No ascites or pneumoperitoneum. No omental or mesenteric lesions. Lymph nodes: No enlarged lymph nodes. Abdominal and pelvic wall: Unremarkable. Bones: No acute abnormality. Chronic left 10th rib fracture. Status post left hip arthroplasty. IMPRESSION: 1. Moderate inflammatory changes at the right hemicolon, suggestive of infectious/inflammatory colitis. 2. No large vessel occlusion. 3. Indeterminate 4.5 cm right adnexal solid mass is unchanged from 02/2020. I have personally reviewed the images and I agree with this report. WSN: [id number] Ordering Physician: Eliezer Su Dictated By: Abdon Wall MD Dictated Date/Time: 03/09/22 7:52 am Reviewed By: Reilly Ram MD Signed By: Reilly Ram MD Signed Date/Time: 03/09/22 7:57 am Transcribed By: DYANA Transcribed Date/Time: 03/09/22 5:08 am Patient Care team information Care Team PersonnelName: Te Lima Position: [facility] RN Supv Member Role: Primary Care Nurse Name: Connie Stephen RN Position: [facility] RN Member Role: Primary Care Nurse Name: Marjan Paredes RN Position: [facility] SN RN Member Role: Primary Care Nurse Name: Jemal Lizarraga RN Position: [facility] RN Member Role: Primary Care Nurse Name: Home Napoles III, MD Position: [facility] Ambulatory (view) Member Role: PCP Address: Address: [address] [place] [id number] Name: Jennifer Huffman RN Position: [facility] RN Member Role: Primary Care Nurse Name: Meghann Minaya RN Position: [facility] RN Member Role: Primary Care Nurse Name: Keeley Russell RN Position: [facility] RN Member Role: Primary Care Nurse Name: Kyra Zamora RN Position: [facility] RN Member Role: Primary Care Nurse Name: So Esquivel RN Position: [facility] RN Member Role: Primary Care Nurse Name: Jayla Black RN Position: [facility] RN Member Role: Primary Care Nurse Name: Sweta Esparza RN Position: [facility] RN Member Role: Primary Care Nurse Name: Se Connolly RN Position: [facility] RN Member Role: Primary Care Nurse Name: Serenity Mireles RN Position: [facility] RN Member Role: Primary Care Nurse Name: Ирина Singleton RN Position: [facility] RN Member Role: Primary Care Nurse Name: Varinder VIEIRA Attending Position: [facility] ED Medicine MD Name: Rebecca Mclaughlin RN Position: [facility] ED RN W/OE and Tasks Member Role: Patient Care Provider Name: Erica Hazel MD Position: [facility] Resident Member Role: ED Resident Address: Address: [address] [place] [address] [place] [address]- Name: Shantel Muniz Position: [facility] ED TA [facility] Member Role: Head Grease Maker Name: Sarah Bowman Position: [facility] ED OA Charge Member Role: ED Associate Care Team Related PersonsName: VENANCIO GRAVES Address: home [address] [facility] [address] [place] [address] Name: NIKIA PITTMAN Address: home UNKNOWN
--- OUTSIDE RECORDS SUMMARY | 2022-04-12 06:50 | XMS_ITS | Continuity of Care Document ---
:1965 Author Organization [facility] Address [address] [place] [id number]- Care Team Providers Name Role Phone Milena GUADARRAMA, Mattia Primary Care Physician [place] [facility] [place] - 08/02/[address] [address] [facility] Discharge Disposition: A-D/C Walkout Attending Physician: Not on Staff, Attending MD Admitting Physician: Not on Staff, Admitting MD Referring Physician: Not on Staff, Referring MD Allergies, Adverse Reactions, Alerts Substance Reaction Severity Status Latuda Active Medications disulfiram 250 mg oral tablet 1 tablet = 250 mg, By Mouth, Daily, to support abstinence from alcohol, # 30 tablet, 0 Refills, Maintenance, 07/17/15 22:34:38, Tablet Start Date: 07/17/15 Status: Orderedduloxetine 30 mg oral enteric coated capsule 1 capsule = 30 mg, By Mouth, Daily, take daily in the afternoon for depression, anxiety, # 30 capsule, 0 Refills, Maintenance, 07/17/15 22:36:35, Capsule Start Date: 07/17/15 Stop Date: 08/16/15 Status: Orderedduloxetine 60 mg oral enteric coated capsule 1 capsule = 60 mg, By Mouth, Daily in AM, for depression, anxiety, # 30 capsule, 0 Refills, Maintenance, 07/17/15 22:36:26, Capsule Start Date: 07/17/15 Stop Date: 08/16/15 Status: Orderedgabapentin 100 mg oral capsule See Instructions, 1 capsule AM and afternoon, 3 capsules at bedtime, # 35 capsule, Refills 0, Tot. Refills 0, Maintenance, 10/29/17 9:50:18 EDT, Instructions Replace Required Details, Print Requisition Start Date: 10/29/17 Status: OrderedKlonoPIN 1 mg oral tablet 1 tablet = 1 mg, By Mouth, 2 times a day, PRN Anxiety, # 28 tablet, 0 Refills, Maintenance, 07/17/1609:35:29, Tablet Start Date: 07/18/15 Stop Date: 08/01/15 Status: OrderedLaMICtal 100 mg oral tablet See Instructions, take one tablet daily for 2 days, then increase to 1.5 tablet daily x 3 days then increase to 2 tablets daily, # 60 tablet, Refills 0, Tot. Refills 0, Maintenance, 07/17/15 22:40:08, Instructions Replace Required Details, Route to ... Start Date: 07/17/15 Stop Date: 08/16/15 Status: OrderedLatuda 60 mg oral tablet 1 tablet = 60 mg, By Mouth, Daily, for 30 days, for mood, # 30 tablet, 0 Refills, Acute 08/17/15 8:03:13, 07/18/15 8:03:13, Tablet Start Date: 07/18/15 Stop Date: 08/17/15 Status: OrderedSenna 8.6 mg oral tablet 8.6 mg, 1, tablet, By Mouth, Daily at bedtime, PRN, for 30 days, # 30 tablet, Refills 0, Tot. Refills 0, Acute, as needed for constipation, 08/16/15 22:42:15, 07/17/15 22:42:15, Route to Pharmacy Electronically, [id number], W... Start Date: 07/17/15 Stop Date: 08/16/15 Status: OrderedtraZODone 50 mg oral tablet 50 mg, 1, tablet, By Mouth, Daily at bedtime, PRN, # 30 tablet, Refills 0, Tot. Refills 0, Maintenance, Sleep, 07/17/15 22:36:52, Route to Pharmacy Electronically, [id number],[facility] [id number] Start Date: 07/17/15 Stop Date: 08/16/15 Status: OrderedZoloft 100 mg oral tablet 1 tablet = 100 mg, By Mouth, Daily, 0 Refills, Maintenance, 10/03/16 20:06:27 Start Date: 10/03/16 Status: OrderedZoloft 50 mg oral tablet 1 tablet = 50 mg, By Mouth, Daily, 0 Refills, Maintenance, 10/03/16 20:06:34 Start Date: 10/03/16 Status: Ordered Vital Signs Most recent to oldest [Reference Range]: 1 Oxygen Saturation [94-100 %] 99 % (08/02/19 9:28 PM) Pulse Rate [55-90 bpm] 83 bpm (08/02/19 9:28 PM) Blood Pressure [90-138/55-84 mm Hg] 149/65 mm Hg *H* (08/02/19 9:28 PM) Respiratory Rate [16-30 br/min] 20 br/min (08/02/19 9:28 PM) Temperature [96.8-100.4 DegF] 98.7 DegF (08/02/19 9:28 PM) Mode of Delivery (Oxygen) Room air (08/02/19 9:28 PM) Blood pressure sites Arm, left (08/02/19 9:28 PM) Temperature Route Oral (08/02/19 9:28 PM) Social History Social History Type Response Smoking Status Current every day smoker; Ty pe: Cigarettes; Interested in cessation: No; Cessation attempts: 2; entered on: 10/21/16 Sex
--- OUTSIDE RECORDS SUMMARY | 2022-04-12 06:50 | XMS_ITS | Continuity of Care Document ---
:1965 Author Organization [facility] Address [address] [place] [id number]- Care Team Providers Name Role Phone Shoshana Abbott MD Primary Care Physician Encounter [facility] [place] Date(s): 03/05/20 - 03/05/[address] [address]- Encounter Diagnosis Toxic ingestion (Final) - 03/05/20 Toxic ingestion (Final) - 03/05/20 Alcohol intoxication (Final) - 03/05/20 Rib fracture (Final) - 03/05/20 Discharge Disposition: A-D/C Home Attending Physician: Cynthia Keen MD Admitting Physician: Cynthia Keen MD Referring Physician: Not on Staff, Referring MD Allergies, Adverse Reactions, Alerts Substance Reaction Severity Status Latuda Active Medications acetaminophen 500 mg oral tablet 1 tablet = 500 mg, By Mouth, Every 6 hours, PRN Pain , Severe, for 5 days, # 20 tablet, 0 Refills, Acute 03/10/20 22:27:00 EST, 03/05/20 22:27:00 EST, Tablet, [facility] #[id number], Partial fill upon patient request if the prescription is for a... Start Date: 03/05/20 Stop Date: 03/10/20 Status: Ordereddisulfiram 250 mg oral tablet 1 tablet = [...] Details, Print Requisition Start Date: 10/29/17 Status: Orderedibuprofen 400 mg oral tablet 400 mg, 1, tablet, By Mouth, Every 6 hours, PRN, # 20 tablet, Refills 0, Tot. Refills 0, Maintenance, Pain , Severe, 03/05/20 22:27:00 EST, Route to Pharmacy Electronically, [facility] #[id number], Partial fill upon patient request if the prescri... Start Date: 03/05/20 Stop Date: 03/10/20 Status: OrderedKlonoPIN 1 mg oral tablet 1 [...] Start Date: 07/18/15 Stop Date: 08/17/15 Status: OrderedLidoderm 5% film 1 patch, Topically, Daily, # 30 patch, 0 Refills, Maintenance, 03/05/20 22:30:00 [facility], [id number], Partial fill upon patient request if the prescription is for a schedule II opioid drug., 1 patch Topically Daily,x7 days Start Date: 03/05/20 Stop Date: 03/12/20 Status: OrderedSenna 8.6 mg oral tablet 8.6 mg, 1, tablet, By Mouth, Daily at bedtime, PRN, for 30 days, # 30 tablet, Refills 0, Tot. Refills 0, Acute, as needed for constipation, 08/16/15 22:42:15, 07/17/15 22:42:15, Route to Pharmacy Electronically, [id number], W... Start Date: 07/17/15 Stop Date: 08/16/15 Status: OrderedtraZODone 50 mg oral tablet 50 mg, 1, tablet, By Mouth, Daily at bedtime, PRN, # 30 tablet, Refills 0, Tot. Refills 0, Maintenance, Sleep, 07/17/15 22:36:52, Route to Pharmacy Electronically, [id number],[facility] [id number] Start Date: 07/17/15 Stop Date: 08/16/15 Status: OrderedZoloft 100 mg oral tablet 1 tablet = 100 mg, By Mouth, Daily, 0 Refills, Maintenance, 10/03/16 20:06:27 Start Date: 10/03/16 Status: OrderedZoloft 50 mg oral tablet 1 tablet = 50 mg, By Mouth, Daily, 0 Refills, Maintenance, 10/03/16 20:06:34 Start Date: 10/03/16 Status: Ordered Vital Signs Most recent to oldest 1 2 3 [Reference Range]: Oxygen Saturation [94-100 %] 97 % 9 % 98 % (03/05/20 9:59 PM) *L* (03/05/20 6:1 7 PM) (03/05/20 8:12 PM) Pulse Rate [55-90 bpm] 78 bpm 72 bpm 71 bpm (03/05/20 9:59 PM) (03/05/20 8:12 PM) (03/05/20 6:17 PM) Blood Pressure [90-138/55-84 117/50 mm Hg 150/72 mm Hg 122 /69 mm Hg mm Hg] (03/05/20 9:59 PM) *H* (03/05/20 6:1 7 PM) (03/05/20 8:12 PM) Respiratory Rate [16-30 17 br/min 18 br/min 16 br/mi n br/min] (03/05/20 9:59 PM) (03/05/20 8:12 PM) (03/05/20 6:17 PM) Temperature [96.8-100.4 98.4 DegF 98.2 DegF 97.8 Deg F DegF] (03/05/20 9:59 PM) (03/05/20 8:12 PM) (03/05/20 6:17 PM) Mode of Delivery (Oxygen) Room air Room air Room a ir (03/05/20 9:59 PM) (03/05/20 8:12 PM) (03/05/20 6:17 PM) Blood pressure sites Arm, left Arm, left Arm, right (03/05/20 9:59 PM) (03/05/20 8:12 PM) (03/05/20 6:17 PM) Temperature Route Oral Oral Oral (03/05/20 9:59 PM) (03/05/20 8:12 PM) (03/05/20 6:17 PM) Social History Social History Type Response Smoking Status Current every day smoker; Ty pe: Cigarettes; Interested in cessation: No; Cessation attempts: 2; entered on: 10/21/16 Sex
--- NOTE | 2022-04-12 06:51 | ED.MEDCLEAR ---
HPI - Medical Clearance General Chief complaint: Medical Clearance Stated complaint: Medical Clearance Time Seen by Provider: 04/12/22 06:43 Source: patient Mode of arrival: ambulatory History of Present Illness HPI Narrative: 57-year-old female with history of alcohol use and is scheduled for inpatient detox today reports as requested by the detox center for medical clearance as she endorsed to the facility that she had tripped and hit the left side of her head on Friday. Patient denies that she experienced any loss of consciousness and denies any difficulties with vision/hearing/unilateral weakness since that time. Patient does have a healing wound to the left ear. Related Information Allergies Allergy/AdvReac Type Severity Reaction Status Date / Time lurasidone [From LATUDA] Allergy Unknown throat Verified 05/17/21 12:11 spasms, Speech-stuttering Review of Systems Review of Systems: Pertinent positives and negatives as stated in HPI [facility] Past Medical History Source: nursing notes reviewed Social History Social History Alcohol intake: current Alcohol intake frequency: does not drink Patient Tobacco Use Status: Never used Tobacco Smoked in Last 30 Days: No Use of substances other than those prescribed or required for medical reasons: Unknown Advance Directives: Yes Advance Directives Information Provided: Yes Advance Directives on File: No Patient : No Physical Exam Vital Signs: Vital Signs: Last Vital Signs Temp 97.6 F 04/12/22 06:31 Pulse 92 04/12/22 06:31 Resp 14 04/12/22 06:31 BP 125/71 04/12/22 06:31 Pulse Ox 95 04/12/22 06:31 O2 Del Method 04/12/22 06:31 BMI result Body Mass Index 28.1 VITAL SIGNS: Reviewed. GENERAL: Well developed, well nourished, in no acute distress. HEAD: Normocephalic/atraumatic EYES: PERRLA, EOMI EARS: Ext canals without abnormality, pinna on left ear with well-healing laceration no contusion NOSE: Nares patent bilateral OROPHARYNX: no oral lesions noted, posterior pharynx clear NECK: Supple, no adenopathy LUNGS: Normal breath sounds. No adventitious sounds or accessory muscle use. SpO2<95> CARDIOVASCULAR: Regular rate and rhythm without noted murmurs ABDOMEN: Soft, non-tender, non-distended with bowel sounds. NEUROLOGIC: Alert and oriented x 4. Strength and sensation to light touch were grossly intact x 4, no facial asymmetry, no pronator drift, cranial nerves 2-12 are grossly intact.. Medical Decision Making Medical Decision Making [facility] Narrative: This is a 57-year-old female with history of alcohol use in seeking inpatient detox for which she has a spot within the facility but they requested that she get medically cleared due to a fall on Friday. Since I have a suspicion that she may have been intoxicated at the time and not actually recall all of the events I am proceeding with a CT scan despite absent focal findings. Patient is also confirming any further ?medical clearance? that is being required by the facility. Patient has a small well-healing laceration to the left pinna. CT scan is negative for acute intracranial findings, and patient is medically optimized for inpatient rehabilitation.. Differential Diagnosis Differential Diagnoses: The differential diagnosis associated with the presentation includes Please see discussion above Lab Data [facility] Lab Attestation statement: I reviewed the patient's lab results. Please see the discussion above Radiology Impression Radiologist Impression: My interpretation is in agreement with radiology's impression of the imaging findings. External Record Review External record reviewed: Outpatient record and Prior outpatient labs Chronic Conditions Alcohol use disorder Discharge Plan Discharge Clinical Impression: Fall, Laceration of ear, Alcohol use disorder Patient Disposition: Home, Self-Care Instructions: Laceration (ED), Fall Prevention (ED), Alcohol Use Disorder (ED) Additional Instructions: You are medically optimized for admission to inpatient detox. Referrals: Home Napoles III, MD [Primary Care Provider] -
[2022-04-12 09:32] VITALS: BP 128/52; PULSE 84; RESP 18; TEMP 36.8; O2SAT 97
--- NOTE | 2022-04-12 13:04 | MHC.RECOVRN ---
Pt had been accepted to [facility], however, was sent to [facility] for medical clearance after reporting a fall during intake with [facility]. T/w spoke with [facility] intake, they requested ED note and CT report. KAREEM obtained, information sent to [facility]. Pt dc to waiting room to await set up of transportation. T/w went to meet with patient in waiting room to discuss transport, pt not in waiting room nor outside.
== END 2022-04-12 09:40 | disposition home or self-care (01) ==
PROVIDERS: Emergency Provider Student in an Organized Health Care Education/Training Program; PCP Internal Medicine
DX: S01.312A Laceration without foreign body of left ear, initial encounter (principal); W19.XXXA Unspecified fall, initial encounter; F10.99 Alcohol use, unspecified with unspecified alcohol-induced disorder; Y90.9 Presence of alcohol in blood, level not specified; Y93.9 Activity, unspecified; Y92.9 Unspecified place or not applicable; Y99.9 Unspecified external cause status
CPT/HCPCS: 70450; 99284

== ENCOUNTER 2023-11-16 15:07 | Inpatient (IN) | payer MEDICARE, MEDICAID, SELFPAY ==
[2023-11-16 15:44] VITALS: BP 127/71; BP 142/80; PULSE 80; PULSE 95; RESP 20; TEMP 36.5; O2SAT 96; BMI 34.5
--- NOTE | 2023-11-16 15:58 | ED_ITS ---
HPI - General Adult General Chief complaint: Psychiatric Symptoms Stated complaint: ETOH./ SI, Colitis Time Seen by Provider: 11/16/23 15:56 Source: patient and EMS Mode of arrival: EMS Limitations: no limitations History of Present Illness ED Provider: Astrid Cerda PA-C HPI narrative: Patient is a 58 year old assigned female at with a history of ETOH abuse, crack abuse, and bipolar disorder presenting to the emergency department today with suicidal ideation. Patient states that she has been using alcohol and crack every day and has not been taking her bipolar medication. Patient states that she is suicidal. Patient denies any dizziness, lightheadedness, abdominal pain, nausea, vomiting, fever, chills, blurry vision, double vision, loss of vision, chest pain, difficulty breathing, shortness of breath, back pain, night sweats, pain with urination, increased urinary frequency, increased urinary urgency, blood in her urine or stool, syncope or a near syncopal episode, recent trauma or falls, bowel incontinence, bladder incontinence, or any other complaints at this time. Relieving factors: none Exacerbating factors: none Associated symptoms: denies other symptoms Treatments prior to arrival: none Related Data Allergies Allergy/AdvReac Type Severity Reaction Status Date / Time lurasidone [From LATUDA] Allergy Unknown throat Verified 11/16/23 15:50 spasms, Speech-stuttering Review of Systems 2 Constitutional: Constitutional: Reports no additional constitutional complaints, Denies chills, Denies fever(s) and Denies night sweats Eyes: Eyes: Reports no additional eye complaints, Denies blurry vision, Denies change in vision, Denies diplopia, Denies eye discharge, Denies loss of vision and Denies eye pain ENT: Denies dizziness Cardiovascular: Cardiovascular: Reports no additional cardiovascular complaints, Denies chest pain, Denies lightheadedness, Denies Loss of Consciousness and Denies dyspnea Respiratory: Respiratory: Reports no additional respiratory complaints and Denies dyspnea Gastrointestinal: Gastrointestinal: Reports no additional gastrointestinal complaints, Denies abdominal pain, Denies melena, Denies hematochezia, Denies change in bowel habits and Denies change in stool character Genitourinary: Genitourinary: Denies hematuria, Denies urinary frequency, Denies dysuria, Denies urinary incontinence, Denies urinary hesitancy and Denies urinary urgency Musculoskeletal: Musculoskeletal: Reports no additional musculoskeletal complaints, Denies numbness and Denies tingling Neurologic: Denies dizziness, Denies loss of vision, Denies numbness and Denies tingling Psychiatric: Psychiatric: Denies homicidal ideation and Reports suicidal ideation Endocrine: Endocrine: Reports no additional endocrine complaints Hematologic/Lymphatic: Hematologic/Lymphatic: Reports no additional hematologic/lymphatic complaints Allergic/Immunologic: Allergic/Immunologic: Reports no additional allergic/immunologic complaints [facility] Past Medical History Attestation statement: The following information was validated with the patient. Source: old records reviewed and nursing notes reviewed Social History Social History Alcohol intake: current Alcohol intake frequency: 3 or more drinks per day Alcohol type: hard liquor Patient Tobacco Use Status: Never used Tobacco Smoked in Last 30 Days: Yes Use of substances other than those prescribed or required for medical reasons: Yes Substance Use Type: Crack/Cocaine Advance Directives: No Advance Directives Information Provided: No Do you have a plan to hurt others: No Plan Patient : No Physical Exam ED Vital Signs: Vital Signs - 24 hr 11/16/23 15:44 11/16/23 18:21 11/16/23 20:19 Temperature 97.7 F 98.2 F Pulse Rate 80 103 H Respiratory Rate 20 16 18 Blood Pressure 127/71 134/65 Pulse Oximetry 96 98 Oxygen Delivery Method Room Air Room Air BMI result Body Mass Index 34.5 Const General: cooperative, no acute distress, alert and awake Nutritional Appearance: well nourished Orientation/consciousness: patient oriented x3 Limitations: no limitations [facility]: Yes normal to inspection and Yes atraumatic Ears: hearing grossly normal bilaterally and external ears normal General nose exam: Normal external nose present, no nasal discharge noted and no epistaxis Face and sinus: Yes normal facial exam, No abrasion and No laceration Mouth: Normal oral and palatal mucosa present, no drooling and no muffled voice Eyes General: appearance normal, both eyes and all related structures Periorbital: periorbital findings normal Eyelids: Yes eyelids normal Conjunctivae: conjunctivae normal Pupils: Equal, round and reactive pupils present EOM: EOMs intact bilaterally Neck Neck: Yes normal visual inspection, Yes full ROM and Yes no lymphadenopathy Chest Chest palpation & inspection: normal inspection of the chest Resp Effort & Inspection: normal respiratory effort and able to speak in complete sentences GI Inspection: Yes normal to inspection Neuro General: patient oriented x3 and moves all extremities Cranial nerves: Yes Equal, round and reactive pupils present Cognition (Neuro): normal cognition Extrem General: Yes normal to inspection, Yes full ROM and Yes capillary refill normal Psych Appearance: grossly normal Mental Status: mental status grossly normal Affect: Labile affect present Attitude: Belligerent attititude/behavior present Thought content: Suicidality present Medications Administered Discontinued Medications Generic Name Dose Route Start Last Admin Trade Name Gustavo PRN Reason Stop Dose Admin Lorazepam 2 mg 11/16/23 16:04 11/16/23 16:21 Lorazepam 1 Mg Tablet PO 11/16/23 16:05 2 mg ONCE ONE Administration Lorazepam 2 mg 11/16/23 22:04 11/16/23 22:39 Lorazepam 1 Mg Tablet PO 11/16/23 22:05 2 mg ONCE ONE Administration Ondansetron HCl 4 mg 11/16/23 16:16 11/16/23 16:21 Ondansetron Odt 4 Mg Tab.Rapdis TRANSLINGU 11/16/23 16:17 4 mg ONCE ONE Administration Medical Decision Making Medical Decision Making MDM Narrative: Patient is a 58 year old assigned female at with a history of alcohol use, crack use, and bipolar disorder presenting to the emergency department today with SI and alcohol intoxication. Patient's physical exam was as noted in the physical exam portion of this note. Patient's blood work showed an elevated ethyl alcohol level but was otherwise unremarkable. Patient's urine showed no acute process. Patient's EKG was unremarkable. I explained my physical exam findings as well as all test results to the patient. I answered all questions asked by the patient. Patient was evaluated by the CARE team who recommended inpatient level psychiatric care. Differential Diagnosis Differential Diagnoses: The differential diagnosis associated with the presentation includes Alcohol use Crack use Bipolar disorder Suicidal ideation Admission/Observation Consideration of admission/observation: Escalation of care including admission/observation considered Patient to be admitted for inpatient level of psychiatric care or transferred to an inpatient psychiatric facility. Consult Healthcare Provider Management of the patient was discussed with: Behavioral Health Provider (spoke to the CARE team as noted in the MDM Rationale portion of this note.) Lab Data [facility] Lab Attestation statement: I reviewed the patient's lab results. My interpretation of these results are in the MDM Rationale portion of this note. 11/16/23 16:12 11/16/23 16:42 Labs: Lab Results 11/16/23 11/16/23 11/16/23 Range/Units 16:12 16:42 20:15 WBC 8.0 (4.8-10.8) X10*3/uL RBC 4.76 (4.20-5.50) X10*6/uL Hgb 15.1 (12.0-16.0) g/dl Hct 42.4 (37.0-47.0) % MCV 89.1 (80.0-98.0) fL MCH 31.7 (27.0-33.0) pg MCHC 35.6 H (31.0-35.0) g/dl RDW 15.2 (11.0-16.0) % Plt Count 163 (160-400) X10*3/uL MPV 8.8 L (9.4-12.3) fL Immature Gran % (Auto) 0.3 (0.0-0.4) % Neut % (Auto) 55.7 (45-73) % Lymph % (Auto) 36.7 (20-40) % [place] % (Auto) 6.3 (2-11) % Eos % (Auto) 0.6 (0-4) % Baso % (Auto) 0.4 (0-2) % Lymph # (Auto) 2.9 (1.2-4.9) X10*3/uL [place] # (Auto) 0.5 (0.1-1.2) X10*3/uL Eos # (Auto) 0.1 (0.0-0.4) X10*3/uL Baso # (Auto) 0.0 (0.0-0.2) X10*3/uL Abs Immat Gran (auto) 0.02 (0.00-0.03) X10*3/uL Absolute Neuts (auto) 4.4 (2.0-8.3) x10*3/uL Absolute Nucleated RBC 0.000 (0.0-0.012) X10*3/uL Nucleated RBC % (auto) 0.0 (0.0-0.2) /100WBC Sodium 140 (135-145) mmol/L Potassium 3.4 (3.3-5.1) mmol/L Chloride 103 (96-108) mmol/L Carbon Dioxide 22 (22-29) mmol/L Anion Gap 18 (12-20) BUN 15 (9-16) mg/dL Creatinine 0.77 (0.5-1.4) mg/dL Estim Creat Clear Calc 94.3 Estimated GFR > 60 Random Glucose 108 (60-115) mg/dL Calcium 8.2 L (8.4-10.2) mg/dL Total Bilirubin 0.5 (0.0-1.0) mg/dL AST 42 H (5-31) U/L ALT 17 (0-31) U/L Alkaline Phosphatase 115 (39-117) U/L Total Protein 6.4 L (6.5-8.0) g/dL Albumin 3.8 (3.5-5.0) g/dL Urine Color Yellow Urine Appearance Clear Urine pH 5.5 (5.0-9.0) Ur Specific [place] 1.010 (1.005-1.025) Urine Protein Negative (Neg-Trace) mg/dL Urine Glucose (UA) Negative (Negative) mg/dL Urine Ketones Negative (Negative) mg/dL Urine Blood Trace H (Negative) Urine Nitrite Negative (Negative) Ur Leukocyte Esterase Negative (Negative) Urine RBC 0-2 (0-2) /HPF Urine WBC 0-5 (0-5) /HPF Ur Squamous Epith Cells 0-2 (0-2) /HPF Urine Bacteria None Seen (None Seen) Hyaline Casts 0-2 (0-2) /LPF Urine Test NEGATIVE (NEGATIVE) Salicylates < 5.0 L (15-30) mg/dL Urine Opiates Screen Not Detected (Not Detect) Ur Buprenorphine Scrn Not Detected (Not Detect) ng/mL Ur Oxycodone Screen Not Detected (Not Detect) ng/mL Urine Methadone Screen Not Detected (Not Detect) ng/mL Urine Fentanyl Screen Not Detected (Not Detect) Acetaminophen < 3 (<30) mcg/mL Ur Barbiturates Screen Not Detected (Not Detect) Ur Phencyclidine Scrn Not Detected (Not Detect) Ur Amphetamines Screen Not Detected (Not Detect) U Benzodiazepines Scrn Not Detected (Not Detect) Urine Cocaine Screen Not Detected (Not Detect) U Marijuana (THC) Screen Not Detected (Not Detect) Ethyl Alcohol 334 H* mg/dL COVID-19 (TONY) Negative (Negative) COVID-19 Clin Com See Note Independent Interpretation I performed an independent interpretation of an: EKG Interpretation: Vent. Rate: 086 BPM Atrial Rate: 086 BPM P-R Int: 162 ms QRS Dur: 092 ms QT Int: 416 ms P-R-T Axes: 075 066 050 degrees QTc Int: 497 ms Normal sinus rhythm Prolonged QT Abnormal ECG When compared with ECG of 22-MAY-2017 12:12, No significant change was found DD/ 1626 Independent Historian Clinical information obtained from an independent historian. History obtained from or confirmed by: EMS (EMS provided additional history and confirmed the history provided by the patient.) Critical Care Time Critical Care Time Critical Care Time: Yes Total Critical Care Time: 42 Attestation: I spent 42 minutes of Critical Care Time with this patient. This does not include time spent on separately reported billable procedures. Discharge Plan Discharge Clinical Impression: Suicidal ideation, Alcohol use, Crack cocaine use Patient Disposition: Still a Patient Interventions: [place]-Suicide Risk Severity Scale Last Done: 11/16/23 21:09 Print Language: Mohawk
--- NOTE | 2023-11-16 15:59 | ECG_ITS ---
Test Reason : MED CLEARANCE Blood Pressure : / mmHG Vent. Rate : 086 BPM Atrial Rate : 086 BPM P-R Int : 162 ms QRS Dur : 092 ms QT Int : 416 ms P-R-T Axes : 075 066 050 degrees QTc Int : 497 ms Normal sinus rhythm Prolonged QT Abnormal ECG When compared with ECG of 22-MAY-2017 12:12, QT has lengthened Referred By: Astrid Cerda Electronically Signed By:MARYANN MILES
[2023-11-16] MEDS: LORazepam 1 MG TABLET 2 MG PO ×2 (16:21→22:39)
[2023-11-16] MEDS: Ondansetron ODT 4 MG TAB.RAPDIS TRANSLINGU (16:21)
[2023-11-16 16:47] LABS: MANUAL DIFF FLAG NO
[2023-11-16 16:48] LABS: Basophils Percent Auto 0.4 % (0-2); Eosinophils Absolute Auto 0.1 X10*3/uL (0.0-0.4); Eosinophils Percent Auto 0.6 % (0-4); Hematocrit 42.4 % (37.0-47.0); Hemoglobin 15.1 g/dl (12.0-16.0); Imm Gran Abs Auto 0.02 X10*3/uL (0.00-0.03); Imm Gran Pct Auto 0.3 % (0.0-0.4); Lymphocytes Absolute Auto 2.9 X10*3/uL (1.2-4.9); Lymphocytes Percent Auto 36.7 % (20-40); Mean Corpuscular HGB Conc 35.6 g/dl (31.0-35.0); Mean Corpuscular Hemoglobin 31.7 pg (27.0-33.0); Mean Corpuscular Volume 89.1 fL (80.0-98.0); Mean Platelet Volume 8.8 fL (9.4-12.3); Monocytes Absolute Auto 0.5 X10*3/uL (0.1-1.2); Monocytes Percent Auto 6.3 % (2-11); Neutrophils Absolute Auto 4.4 x10*3/uL (2.0-8.3); Neutrophils Percent Auto 55.7 % (45-73); Platelet Count 163 X10*3/uL (160-400); Red Blood Count 4.76 X10*6/uL (4.20-5.50); Red Cell Distribution Width 15.2 % (11.0-16.0)
[2023-11-16 17:02] LABS: COVID-19 Test Negative (Negative); IDNOW Serial# 152EDE1D
[2023-11-16 17:08] LABS: Alanine Aminotransferase 17 U/L (0-31); Albumin Level 3.8 g/dL (3.5-5.0); Alkaline Phosphatase 115 U/L (39-117); Anion Gap 18 (12-20); Aspartate Amino Transferase 42 U/L (5-31); Bilirubin Total 0.5 mg/dL (0.0-1.0); Blood Urea Nitrogen 15 mg/dL (9-16); Calcium 8.2 mg/dL (8.4-10.2); Carbon Dioxide 22 mmol/L (22-29); Chloride 103 mmol/L (96-108); Creatinine Clr Calc Pharmacy 94.3; Estimated Glomerular Filt Rate > 60; Ethanol 334 mg/dL; Glucose Random 108 mg/dL (60-115); Potassium 3.4 mmol/L (3.3-5.1); Sodium 140 mmol/L (135-145); Total Protein 6.4 g/dL (6.5-8.0)
[2023-11-16 17:10] LABS: Acetaminophen LAB < 3 mcg/mL (<30); Salicylate < 5.0 mg/dL (15-30)
[2023-11-16 18:21] VITALS: RESP 16
[2023-11-16 20:19] VITALS: BP 134/65; PULSE 103; RESP 18; TEMP 36.8; O2SAT 98
--- NOTE | 2023-11-16 20:20 | PC.NURSE ---
1:1 assist as pt has an unsteady gait during ambulation. urine obtained/sent to lab. pt turned/repositioned/resting comfortably in stretcher in no apparent distress. no sob/wob noted. respirations even/unlabored. pt waiting to be seen by care team. plan of care ongoing.
[2023-11-16 20:34] LABS: Appearance Urine Clear; Color Urine Yellow; Glucose Urine UA Negative (Negative); Leukocyte Esterase Urine Negative (Negative); Nitrite Urine Negative (Negative); PH 5.5 (5.0-9.0); UMIC TRIGGER UA YES; Urine Blood Trace (Negative); Urine Ketones Negative (Negative); Urine Protein Negative (Neg-Trace)
[2023-11-16 20:35] LABS: UPreg QC Valid YES; Urine Pregnancy NEGATIVE (NEGATIVE)
[2023-11-16 20:39] LABS: Bacteria Urine None Seen (None Seen); Hyaline Casts Urine 0-2 /LPF (0-2); RBC Urine 0-2 /HPF (0-2); Squamous Epithelial Cell Urine 0-2 /HPF (0-2); WBC Urine 0-5 /HPF (0-5)
[2023-11-16 20:42] LABS: Amphetamine Screen Urine Not Detected (Not Detect); Barbiturates, Urine Not Detected (Not Detect); Benzodiazepines Screen Urine Not Detected (Not Detect); Buprenorphine Scr Not Detected (Not Detect); Cannabinoid Screen Urine Not Detected (Not Detect); Cocaine Screen Urine Not Detected (Not Detect); Fentanyl, urine Not Detected (Not Detect); Methadone Screen, Urine Not Detected (Not Detect); Opiate Screen Urine Not Detected (Not Detect); Oxycodone Screen Urine Not Detected (Not Detect); Phencyclidine Screen Urine Not Detected (Not Detect)
--- NOTE | 2023-11-16 22:40 | PC.NURSE ---
pt medicated per provider order. effectiveness pending 1:1 sitter remains present.
--- NOTE | 2023-11-17 03:44 | PC.NURSE ---
Took report from off-going RN at 2300 hrs. Pt is a 58 y/o female here for increased feelings of depression and anxiety. Pt is calm, cooperative, and appropriate with staff. Easily arousable with verbal stimuli. Pt has been sleeping most the of the shift, appears comfortable and changes positions independently as desired. Skin has remained W/P/D and no acute distress has been observed. Pt verbalized her needs appropriately. Pt remains within view of the nurses station and staff is at the beside for safety. Pt has been evaluated by care team and disposition is still pending.
[2023-11-17 04:53] VITALS: BP 122/56; PULSE 78; RESP 16; TEMP 36.3; O2SAT 95
--- NOTE | 2023-11-17 05:30 | PC.NURSE ---
I assumed care of patient at at 04:40 am. Patient is resting comfortably in a hospital bed, offers no complaints at this time. 1:1 sitter at bedside. Plan of care ongoing.
[2023-11-17] MEDS: LORazepam 1 MG TABLET 2 MG PO ×4 (06:24→19:39)
[2023-11-17 11:43] VITALS: BP 137/71; PULSE 81; RESP 17; O2SAT 98
[2023-11-17 14:31] VITALS: BP 135/71; PULSE 81; RESP 17; O2SAT 98
--- NOTE | 2023-11-17 16:42 | PC.NURSE ---
assumed care of patient, resting quietly in stretcher. patient alert and oriented, has sitter 1:1
[2023-11-17 17:01] VITALS: BP 122/66; PULSE 89; RESP 20; TEMP 36.8; O2SAT 97
[2023-11-17 19:17] VITALS: BP 117/66; PULSE 98; RESP 16; TEMP 36.7; O2SAT 98
--- NOTE | 2023-11-17 19:18 | MHC.EDTECH ---
This tech took over care/sitter of patient at 1900,vitals taken,patient ate 50% of her dinner,patient is resting quietly.
[2023-11-17] MEDS: Acetaminophen 325 MG TABLET 975 MG PO (19:39)
--- NOTE | 2023-11-17 21:14 | MHC.EDTECH ---
Patient asked to shower was not able to a this time,and this tech brought patient to the bathroom and helped her wash up,gave her clean crisis attire,and changed her bed linen, patient feels alot better at this time,and is resting quietly
[2023-11-17 21:25] VITALS: BP 137/73; PULSE 73; RESP 18; TEMP 36.8; O2SAT 97
--- NOTE | 2023-11-17 21:26 | MHC.EDTECH ---
Patient was given a snack a sun butter and jelly sandwich ice cream and ice water
[2023-11-18] MEDS: LORazepam 1 MG TABLET 2 MG PO ×3 (01:01→11:10)
--- NOTE | 2023-11-18 01:57 | PC.NURSE ---
Patient is alert and oriented 4, pleasant and cooperative, VSS. Respirations even and unlabored. Last CIWA score 6. Medicated with Lorazepam 2 mg PO with good effect. Patient resting comfortably in a stretcher bed, 1:1 sitter at bedside. Plan of care ongoing.
[2023-11-18 06:32] VITALS: BP 127/66; PULSE 96; RESP 15; TEMP 36.7; O2SAT 95
--- NOTE | 2023-11-18 11:15 | PC.NURSE ---
CIWA 9, pt reporting increased anxiety, medicated w PRN for ETOH withdrawal per MAR.
[2023-11-18 12:21] VITALS: BP 129/63; PULSE 73; RESP 17; TEMP 36.7; O2SAT 98
[2023-11-18] MEDS: PHENobarbitaL sodium 130 MG/ML IM ONCE 246 MG IM (14:09)
[2023-11-18 14:13] VITALS: BP 109/60; PULSE 90; RESP 16; TEMP 36.8; O2SAT 98
--- NOTE | 2023-11-18 14:54 | PHA.MEDREC ---
Addendum entered by Lata Diego RPh 11/18/23 15:29: Reviewed by [facility]; pharmacy spoke directly to patient to confirm differences in dosing Original Note: Pharmacy Consult ? Medication Reconciliation Pharmacy has completed the medication reconciliation. [facility] to confirm medications. The pharmacist was able to confirm the Cariprazine 3mg daily, Hydroxizine 50mg daily at bedtime, Lamotrigine 150mg daily, Sertraline 100mg daily and Topiramate 100mg at bedtime, [facility] also stated she has no refills left on any of her medications and that she has not picked up from that [facility] since 10/07 for 30 days. In patient med rec it states she is taking the Lamotrigine 300mg daily and her Sertraline 200mg daily, we kept it as is since the patient confirmed that regimen.
[2023-11-18] MEDS: lamoTRIgine 100 MG TABLET 300 MG PO (16:05)
[2023-11-18] MEDS: Cariprazine HCl 3 MG CAPSULE PO (16:05)
[2023-11-18] MEDS: Sertraline HCL 100 MG TABLET 200 MG PO (16:05)
[2023-11-18 17:39] VITALS: BP 125/86; PULSE 87; RESP 20; TEMP 36.1; O2SAT 98
[2023-11-18] MEDS: PHENobarbitaL sodium 130 MG/ML VIAL IM Q3Hx2 185 MG IM ×2 (17:44→20:47)
--- NOTE | 2023-11-18 18:57 | PC.NURSE ---
pt transported to with security and tech from floor with wheelchair assistance.
[2023-11-18 19:15] VITALS: BP 138/57; PULSE 95; RESP 16; TEMP 36.7; O2SAT 96
--- NOTE | 2023-11-18 19:29 | PC.NURSE ---
Patient arrived to unit 1858 accompanied by staff and security. Signed conditional voluntary for admission. Skin check completed, no open areas or rashes. Large scar on L outer thigh from total hip replacement 2019. VSS. Reports feeling uncomfortable from withdrawal, drinking approximately 1 handle daily, last use Friday. Nursing assessment to be completed.
[2023-11-18 19:37] VITALS: BP 138/57; PULSE 95; RESP 18; TEMP 36.7; O2SAT 96
[2023-11-18] MEDS: Topiramate 100 MG TABLET PO (20:49)
[2023-11-18] MEDS: hydrOXYzine HCL 50 MG TABLET PO (20:50)
[2023-11-18] MEDS: Acetaminophen 325 MG TABLET 650 MG PO (20:50)
--- NOTE | 2023-11-19 00:14 | PC.ADMIT ---
Patient is a 58 year old single Mongolian speaking female admitted as a CV admission to from [facility] 11/18/23 at [address] on 15 minute safety checks. Patient was compliant with skin check. Her admission was based on being brought to ED via ambulance, intoxicated and voicing SI without a plan. She apparently recently moved back to [place] after living in [place]. Her current roommate is out of town and the patient said she has been drinking alcohol every day and smoking crack and is spiraling out of control. She has a history of inpatient level of care at [facility], several times, as well as one admission in [place] and an admission to [facility] for bipolar disrder. At this time the patient says she has been off her medications for 4-5 weeks and has no PCP, therapist or psychopharmacological provider. . Her BAL on admission to the [facility] ED 11/16/23 was 344. She has been monitored with a CIWA q 2 hours and has received Phenobarbital. Patient was cooperative but tired during the admission process. She rated her depression 9/10 and anxiety 7/10. She signed paperwork and was able to answer questions. At the time of her admission to patient said she felt safe and was not having any SI. Patient also said she was not having any HI, AH or VH. Patient given her HS medications and she went to bed. CIWAS have been '0 at this time. The saftey tool still needs to be done and signed and the treatment plan needs to be signed Patient also wanted the provider to know that she has a history of severe colitis and was hospitalized for eight days last year when she was having a lot of diarrhea and vomiting, which included one episode of blood in the emesis.
[2023-11-19 01:45] VITALS: BP 135/67; PULSE 65; RESP 16; TEMP 36.9; O2SAT 96
[2023-11-19] MEDS: Gabapentin 300 MG CAPSULE PO (02:27)
--- NOTE | 2023-11-19 02:37 | PC.NURSE ---
CIWA Q 2 hours have been done with scores of 0 . 0145 CIWA score 9 , Dr. Taylor notified via [place] text. Gabapentin 300 mg. x [address] Taylor said that the CIWA was dc'd in the ED but this press writer still had CIWA on the worklist. Patient given the Gabapentin 300 mg po and instructed to let staff know if she is feeling any withdrawals. Next Phenobarbital due at 0900.
[2023-11-19 08:00] VITALS: BP 129/65; PULSE 64; RESP 18; TEMP 36.7; O2SAT 97
[2023-11-19 09:01] LABS: Estimated Average Glucose 105 mg/dL; Hemoglobin A1c % 5.3 % (<6.0)
[2023-11-19] MEDS: PHENobarbitaL 15 MG TABLET 45 MG PO ×2 (09:03→21:22)
[2023-11-19] MEDS: Sertraline HCL 100 MG TABLET 200 MG PO (09:03)
[2023-11-19] MEDS: lamoTRIgine 100 MG TABLET 300 MG PO (09:03)
[2023-11-19] MEDS: Cariprazine HCl 3 MG CAPSULE PO (09:03)
[2023-11-19 09:13] LABS: Alanine Aminotransferase 19 U/L (0-31); Albumin Level 3.8 g/dL (3.5-5.0); Alkaline Phosphatase 108 U/L (39-117); Anion Gap 15 (12-20); Aspartate Amino Transferase 45 U/L (5-31); Bilirubin Total 0.7 mg/dL (0.0-1.0); Blood Urea Nitrogen 11 mg/dL (9-16); Calcium 9.6 mg/dL (8.4-10.2); Carbon Dioxide 27 mmol/L (22-29); Chloride 103 mmol/L (96-108); Cholesterol 190 mg/dL (<200); Creatinine Clr Calc Pharmacy 89.6; Estimated Glomerular Filt Rate > 60; Glucose Fasting 107 mg/dL (60-99); HDL Cholesterol 95 mg/dL (>40); LDL Cholesterol Calculated 79 mg/dL (<100); Magnesium 2.2 mg/dL (1.6-2.6); Potassium 4.5 mmol/L (3.3-5.1); Sodium 140 mmol/L (135-145); Total Protein 6.5 g/dL (6.5-8.0); Triglycerides 81 mg/dL (<150)
[2023-11-19 09:29] LABS: Thyroid Stimulating Hormone 1.32 uIU/mL (0.32-4.0)
[2023-11-19 09:42] LABS: Vitamin B12 637 pg/mL (200-900)
--- NOTE | 2023-11-19 09:59 | P.HPPS_ITS ---
HPI Date of Service: 11/19/23 Chief Complaint: SI Sources of Information: patient interviewed, chart reviewed and crisis/core team assessment reviewed HPI Subjective Notes: Choi Warning and Conditional Voluntary Narrative: Ms. Gross is a 58 year-old woman with hx of Bipolar Disorder and alcohol use disorder who self presented to [facility] [place] ED reporting increased depressed mood, suicidal ideation without a plan, increase alcohol use. Her BAL 334. In the ED, she was started on phenobarbital protocol. no hx of alcohol withdrawal seizure. On the unit, pt presents as pleasant. She reports she relapsed on alcohol about 2 months ago after 10 months of sobriety. She reports her family is upset with her because the relapsed. She reports she also stopped taking medications for Bipolar disorder about 1 months ago. She endorses depressed mood, hopeless, helpless, anhedonia. She denies hx of psychosis or delusions. She reports usually has depressed mood. She describes symptoms of anderson or hypomania as mostly feeling increased energy, denies decrease need for sleep, or risk taking behaviors or grandiose delusions. She reports drinking about 1/2 pint of alcohol daily. She reports she has been on naltrexon and campral but reports they were not effective. Past Psychiatric History: Inpt: about 5 inpt admission. Reports last one was at [facility] in 2019. OP: currently no OP providers. Used to see Dr. Reilly Li but he retired. She reports she lives with roommate here in [place] and housing is consider stable. She denies hx of suicide attempts. She reports lamictal and vraylar have been very helpful for mood stabilization. She reports she has been on topamax for weight loss but no therapeutic benefit, prefers to stop this medication. She is also on sertraline which pt reports is helpful. Medical Evaluation Reviewed: Yes [facility] Family History: mother with Alzheimer's Social History: Pt never , no children. She has 1 brother and 2 sisters. She is originally from [place]. She is on disability and this is main source of income. Substance History: Reports using alcohol since age 12. 1/2 pint of vodka daily for past 2 months after 10 months of sobriety cocaine- since age 18, once monthly Pt denies opioid use. Diagnostics Vital Signs (24Hr): Vital Signs - 24 hr 11/18/23 12:21 11/18/23 14:13 11/18/23 17:39 Temperature 98.1 F 98.2 F 97 F Pulse Rate 73 90 87 Respiratory Rate 17 16 20 Blood Pressure 129/63 109/60 125/86 Pulse Oximetry 98 98 98 Oxygen Delivery Method Room Air Room Air 11/18/23 19:15 11/18/23 19:37 11/19/23 01:45 Temperature 98.0 F 98.0 F 98.4 F Pulse Rate 95 95 65 Respiratory Rate 16 18 16 Blood Pressure 138/57 L 138/57 L 135/67 Pulse Oximetry 96 96 96 Oxygen Delivery Method Room Air Room Air Room Air 11/19/23 08:00 Temperature 98.0 F Pulse Rate 64 Respiratory Rate 18 Blood Pressure 129/65 Pulse Oximetry 97 Oxygen Delivery Method Room Air BMI result Body Mass Index 34.5 Labs 11/16/23 16:12 11/19/23 08:24 Labs: Laboratory Results - last 48 hr 11/19/23 08:24 Sodium 140 Potassium 4.5 D Chloride 103 Carbon Dioxide 27 Anion Gap 15 BUN 11 Creatinine 0.81 Estim Creat Clear Calc 89.6 Estimated GFR > 60 Fasting Glucose 107 H Estimat Average Glucose 105 Hemoglobin A1c % 5.3 Calcium 9.6 D Magnesium 2.2 Total Bilirubin 0.7 AST 45 H ALT 19 Alkaline Phosphatase 108 Total Protein 6.5 Albumin 3.8 Triglycerides 81 Cholesterol 190 LDL Cholesterol, Calc 79 HDL Cholesterol 95 Vitamin B12 637 Folate 14.0 TSH 1.32 Meds/Allergies Meds Home Medications ?Medication ?Instructions ?Recorded ?Confirmed ?Type cariprazine 3 mg capsule (Vraylar) 3 mg PO DAILY 11/18/23 11/18/23 History hydroxyzine HCl 50 mg tablet 50 mg PO BEDTIME 11/18/23 11/18/23 History lamotrigine 150 mg tablet 300 mg PO DAILY 11/18/23 11/18/23 History (Lamictal) sertraline 200 mg capsule 200 mg PO QAM 11/18/23 11/18/23 History topiramate 100 mg tablet (Topamax) 100 mg PO BEDTIME 11/18/23 11/18/23 History Allergies Allergies Allergy/AdvReac Type Severity Reaction Status Date / Time lurasidone [From LATUDA] Allergy Unknown throat Verified 11/16/23 15:50 spasms, Speech-stuttering Mental Status Exam Mental Status Exam Narrative: Appearance: wearing hospital gown, fair hygiene, in NAD Behavior: cooperative and friendly Psychomotor: no agitation or retardation noted Speech: clear, normal rate/rhythm/volume, spontaneous TP: linear TC: wanting help and treatment Mood: depressed Affect: congruent SI: passive HI: none VH/AH: none Delusions: none Insight/judgment: fair x 2 Memory/cog: alert, oriented x 3. grossly intact to conversational testing but not formally assessed. Assessment & Plan Assessment & Plan (1) Bipolar 2 disorder, major depressive episode: Status: Acute Code(s): F31.81 - Bipolar II disorder (2) Alcohol use disorder, moderate, dependence: Status: Acute Code(s): F10.20 - Alcohol dependence, uncomplicated (3) Cocaine use disorder, mild, abuse: Status: Acute Code(s): F14.10 - Cocaine abuse, uncomplicated Plan Ms. Gross is a 58 year-old with a hx of Bipolar disorder and alcohol use disorder who self presented to [facility] [place] ED reporting increased depression, passive SI and increased alcohol use in the past 2 months after 10 months of sobriety. BAL 344. We discussed risks, benefits and alternative treatment options. She is currently on phenobarbital for alcohol withdrawal- minimal symptoms at this point. She reports lamictal, vraylar and sertraline were effective medication for her mood. Given that she has been off these medications for about one month, will restart lower doses, but plan to increase fairly fast. Sertraline 100mg po daily, increased of 200mg po daily. Lamictal 150mg po daily, instead of 300mg po daily. vraylar 3mg po daily. VS stable. Plan 1. Admit to M5, CV, 15 minutes checks for safety 2. continue phenobarb protocol and taper. VS stable, no signs of delirium or alcoholic hallucinosis. 3. sertraline 100mg po daily, vraylar 3mg po daily. d/c topamax due to no therapeutic benefit (for weight loss). d/c gabapentin per pt preference. continue lamictal 150mg po daily. 4. aftercare planning 5. added dulcolax for constipation s/s to IBS. Patient educated on: diagnosis and medication risk/benefits Reason for continued inpatient stay Substantial Risk for: harm to self and inability to function Statement Statement: I have reviewed the history and physical and performed a pertinent examination on my patient. No changes have occurred unless specified. If the History and Physical was not performed prior to admission, the Hospitalist's service will be consulted for completing the admission physical. Time Spent With Patient Time: Total time managing care of this patient today ____ minutes.
[2023-11-19] MEDS: Sennosides/Docusate Sodium TABLET 1 TAB PO ×2 (14:20→21:22)
[2023-11-19] MEDS: Ibuprofen 600 MG TABLET PO (17:21)
[2023-11-19] MEDS: bisacodyL 5 MG TABLET.DR 10 MG PO (17:21)
[2023-11-19 19:35] VITALS: BP 119/68; PULSE 85; RESP 14; TEMP 37.4; O2SAT 97
[2023-11-19] MEDS: hydrOXYzine HCL 50 MG TABLET PO (21:22)
[2023-11-19] MEDS: hydrOXYzine HCL 25 MG TABLET PO (21:22)
[2023-11-20 07:00] VITALS: BMI 33.1
[2023-11-20 08:00] VITALS: BP 127/92; PULSE 82; RESP 14; TEMP 36.4; O2SAT 97
[2023-11-20] MEDS: PHENobarbitaL 15 MG TABLET 45 MG PO ×2 (08:37→21:58)
[2023-11-20] MEDS: Sennosides/Docusate Sodium TABLET 1 TAB PO ×2 (08:37→20:33)
[2023-11-20] MEDS: lamoTRIgine 25 MG TABLET 150 MG PO (08:37)
[2023-11-20] MEDS: Sertraline HCL 100 MG TABLET PO (08:38)
[2023-11-20] MEDS: Cariprazine HCl 3 MG CAPSULE PO (08:38)
[2023-11-20] MEDS: Ibuprofen 600 MG TABLET PO (09:03)
--- NOTE | 2023-11-20 12:31 | HO.PSYCHPN ---
Subjective Subjective Date of Service: 11/19/23 Reason For Visit: SI Subjective Notes: Conditional Voluntary Healthcare Proxy: No Guardianship: No Medical Problems Affecting Mental Status: No Interim History: Discussed relapse and stressors which she believes led up to relapse. Talked of her 10 months of sobriety and the positives she experienced in that time, then her 2 month relapse with alcohol/cocaine. Discussed titration of medications- lamictal, sertraline, vraylar and timelines. Asks to increase hydroxyzine to 75 mg HS as sleep is a problem. She is aware of potential sleep issues in early recovery-she does not believe this to be a detox sx. Planning to identify OP providers for care, meetings she an attend and [facility]. 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 Medication Compliance: Yes Side effects from medications: No Attending Groups: No Review of Systems Acute medical concerns: No Medical Review of Systems: unchanged Review of Systems Review of Systems withdrawal Mental Status Exam Mental Status Exam Patient Appearance: Fatigued and Appropriate Patient Orientation: Person, Place, Time and Situation Level of Consciousness: Alert Patient Behavior: Appropriate, Talkative, Cooperative and Good Eye Contact Mood Description: Depressed and Sad Affect Description: Flat Patient Cognition Impaired: No Ability to Follow Directions: Good Speech Pattern: Spontaneous Speech Memory Description: Intact Hallucinations: None Delusions: Not Present Thought Process: Intact Thought Content: positive for Circumstantial Judgement: Fair Diagnostics Vital Signs (24Hr): Vital Signs - 24 hr 11/19/23 19:35 11/20/23 08:00 Temperature 99.4 F 97.6 F Pulse Rate 85 82 Respiratory Rate 14 14 Blood Pressure 119/68 127/92 H Pulse Oximetry 97 97 Oxygen Delivery Method Room Air Room Air BMI result Body Mass Index 33.1 Labs 11/16/23 16:12 11/19/23 08:24 Labs: Laboratory Results - last 48 hr 11/19/23 08:24 Sodium 140 Potassium 4.5 D Chloride 103 Carbon Dioxide 27 Anion Gap 15 BUN 11 Creatinine 0.81 Estim Creat Clear Calc 89.6 Estimated GFR > 60 Fasting Glucose 107 H Estimat Average Glucose 105 Hemoglobin A1c % 5.3 Calcium 9.6 D Magnesium 2.2 Total Bilirubin 0.7 AST 45 H ALT 19 Alkaline Phosphatase 108 Total Protein 6.5 Albumin 3.8 Triglycerides 81 Cholesterol 190 LDL Cholesterol, Calc 79 HDL Cholesterol 95 Vitamin B12 637 Folate 14.0 TSH 1.32 Medications Medications Current Medications Acetaminophen (Acetaminophen 325 Mg Tablet) 650 mg PO Q6H PRN PRN Reason: Headache/Pain Mild Scale (1-3) Last Admin: 11/18/23 20:50 Dose: 650 mg Al Hydroxide/Mg Hydroxide (Magnesium Hydrox/Alum Hydrox 30 Ml Oral.Susp) 30 ml PO Q6H PRN PRN Reason: Heartburn/Nausea Bisacodyl (Bisacodyl 5 Mg Tablet.Dr) 10 mg PO DAILY PRN PRN Reason: Constipation Last Admin: 11/19/23 17:21 Dose: 10 mg Cariprazine (Cariprazine Hcl 3 Mg Capsule) 3 mg PO DAILY [facility] Last Admin: 11/20/23 08:38 Dose: 3 mg Hydroxyzine HCl (Hydroxyzine Hcl 50 Mg Tablet) 50 mg PO BEDTIME [facility] Last Admin: 11/19/23 21:22 Dose: 50 mg Hydroxyzine HCl (Hydroxyzine Hcl 25 Mg Tablet) 25 mg PO Q6H PRN PRN Reason: Anxiety Last Admin: 11/19/23 21:22 Dose: 25 mg Ibuprofen (Ibuprofen 600 Mg Tablet) 600 mg PO Q6H PRN PRN Reason: pain (pain scale 1-10) Last Admin: 11/20/23 09:03 Dose: 600 mg Lamotrigine (Lamotrigine 25 Mg Tablet) 150 mg PO DAILY [facility] Last Admin: 11/20/23 08:37 Dose: 150 mg Magnesium Hydroxide (Milk Of Magnesia 30 Ml Oral.Susp) 30 ml PO DAILY PRN PRN Reason: Constipation Nicotine (Nicotine 21 Mg Patch.Td24) 21 mg TRANSDERMA DAILY PRN PRN Reason: smoking cessation Nicotine Polacrilex (Nicotine Polacrilex Lozenge 4 Mg Lozenge) 4 mg BUCCAL Q2H PRN PRN Reason: Nicotine Cravings Pharmacy Consult (Consult Rx Etoh Phenob Im/Po) 1 each MISCELLANE ONCE PRN; Protocol PRN Reason: Consult order Phenobarbital (Phenobarbital 15 Mg Tablet) 45 mg PO BID [facility] Stop: 11/20/23 21:01 Last Admin: 11/20/23 08:37 Dose: 45 mg Phenobarbital (Phenobarbital 30 Mg Tablet) 30 mg PO BID [facility] Stop: 11/22/23 21:01 Phenobarbital (Phenobarbital 30 Mg Tablet) 30 mg PO DAILY [facility] Stop: 11/24/23 09:01 Senna/Docusate Sodium (Sennosides/Docusate Sodium Tablet) 1 tab PO BID [facility] Last Admin: 11/20/23 08:37 Dose: 1 tab Sertraline HCl (Sertraline Hcl 100 Mg Tablet) 100 mg PO DAILY [facility] Last Admin: 11/20/23 08:38 Dose: 100 mg Allergies Allergies Allergy/AdvReac Type Severity Reaction Status Date / Time lurasidone [From LATUDA] Allergy Unknown throat Verified 11/16/23 15:50 spasms, Speech-stuttering Assessment & Plan Assessment & Plan (1) Bipolar 2 disorder, major depressive episode: Status: Acute Code(s): F31.81 - Bipolar II disorder (2) Alcohol use disorder, moderate, dependence: Status: Acute Code(s): F10.20 - Alcohol dependence, uncomplicated (3) Cocaine use disorder, mild, abuse: Status: Acute Code(s): F14.10 - Cocaine abuse, uncomplicated Plan Ms. Gross is a 58 year-old with a hx of Bipolar disorder and alcohol use disorder who self presented to [facility] [place] reporting increased depression, passive SI and increased alcohol use in the past 2 months after 10 months of sobriety. BAL 344. We discussed risks, benefits and alternative treatment options. She is currently on phenobarbital for alcohol withdrawal- minimal symptoms at this point. She reports lamictal, vraylar and sertraline were effective medication for her mood. Given that she has been off these medications for about one month, will restart lower doses, but plan to increase fairly fast. Sertraline 100mg po daily, increased of 200mg po daily. Lamictal 150mg po daily, instead of 300mg po daily. vraylar 3mg po daily. VS stable. Plan 1. Admit to M5, CV, 15 minutes checks for safety 2. continue phenobarb protocol and taper. VS stable, no signs of delirium or alcoholic hallucinosis. 3. sertraline 100mg po daily, vraylar 3mg po daily. d/c topamax due to no therapeutic benefit (for weight loss). d/c gabapentin per pt preference. continue lamictal 150mg po daily. 4. aftercare planning 5. added dulcolax for constipation s/s to IBS. 11/20/23: Increase hydroxyzine to 75 mg HS Reason for continued inpatient stay Substantial Risk for: rapid decompensation Time Spent With Patient Time: Total time managing care of this patient today ____ minutes.
[2023-11-20 19:55] VITALS: BP 125/70; PULSE 76; TEMP 36.5; O2SAT 99
[2023-11-20] MEDS: hydrOXYzine HCL 25 MG TABLET 75 MG PO (20:33)
[2023-11-20] MEDS: clonazePAM 0.5 MG TABLET PO (21:58)
[2023-11-21 08:00] VITALS: BP 106/54; PULSE 59; RESP 16; TEMP 36.4; O2SAT 97
[2023-11-21] MEDS: Sennosides/Docusate Sodium TABLET 1 TAB PO ×2 (09:59→21:00)
[2023-11-21] MEDS: Sertraline HCL 100 MG TABLET PO (09:59)
[2023-11-21] MEDS: lamoTRIgine 25 MG TABLET 150 MG PO (10:00)
[2023-11-21] MEDS: Cariprazine HCl 3 MG CAPSULE PO (10:00)
[2023-11-21] MEDS: PHENobarbitaL 30 MG TABLET PO ×2 (10:01→20:59)
[2023-11-21] MEDS: Ibuprofen 600 MG TABLET PO ×2 (10:01→15:55)
--- NOTE | 2023-11-21 10:31 | P.PNPSI_ITS ---
Subjective Subjective Date of Service: 11/21/23 Reason For Visit: SI Subjective Notes: Conditional Voluntary Healthcare Proxy: No Guardianship: No Medical Problems Affecting Mental Status: No Interim History: Pt reports sleep continues to be a significant issue- ?detox sx. Discussed options with pt-will trial one dose of Lorazepam 2 mg HS on 11/19. Reviewed medication titrations. Vraylar is established. Sertraline is now scheduled to increase to 150 mg 11/22/23 and 200 mg 11/23/23. Lamictal will increase 150 mg to 200 mg on 11/23/23. Overall, today, pt reports improvement. She is in milieu and more interactive, yet tired. Medication Compliance: Yes Side effects from medications: No Attending Groups: Intermittent Review of Systems Acute medical concerns: No Medical Review of Systems: unchanged Review of Systems Review of Systems Yes all other systems are reviewed and are negative Mental Status Exam Mental Status Exam Patient Appearance: Appropriate Patient Orientation: Person, Place, Time and Situation Level of Consciousness: Alert Patient Behavior: Appropriate, Talkative, Cooperative and Good Eye Contact Mood Description: Anxious Affect Description: Flat Patient Cognition Impaired: No Ability to Follow Directions: Good Speech Pattern: Spontaneous Speech Memory Description: Intact Hallucinations: None Delusions: Not Present Thought Process: Intact Thought Content: positive for Circumstantial Judgement: Fair Diagnostics Vital Signs (24Hr): Vital Signs - 24 hr 11/20/23 19:55 Temperature 97.7 F Pulse Rate 76 Blood Pressure 125/70 Pulse Oximetry 99 Oxygen Delivery Method Room Air BMI result Body Mass Index 33.1 Labs 11/16/23 16:12 11/19/23 08:24 Medications Medications Current Medications Acetaminophen (Acetaminophen 325 Mg Tablet) 650 mg PO Q6H PRN PRN Reason: Headache/Pain Mild Scale (1-3) Last Admin: 11/18/23 20:50 Dose: 650 mg Al Hydroxide/Mg Hydroxide (Magnesium Hydrox/Alum Hydrox 30 Ml Oral.Susp) 30 ml PO Q6H PRN PRN Reason: Heartburn/Nausea Bisacodyl (Bisacodyl 5 Mg Tablet.Dr) 10 mg PO DAILY PRN PRN Reason: Constipation Last Admin: 11/19/23 17:21 Dose: 10 mg Cariprazine (Cariprazine Hcl 3 Mg Capsule) 3 mg PO DAILY [facility] Last Admin: 11/21/23 10:00 Dose: 3 mg Hydroxyzine HCl (Hydroxyzine Hcl 25 Mg Tablet) 25 mg PO Q6H PRN PRN Reason: Anxiety Last Admin: 11/19/23 21:22 Dose: 25 mg Hydroxyzine HCl (Hydroxyzine Hcl 25 Mg Tablet) 75 mg PO BEDTIME [facility] Last Admin: 11/20/23 20:33 Dose: 75 mg Ibuprofen (Ibuprofen 600 Mg Tablet) 600 mg PO Q6H PRN PRN Reason: pain (pain scale 1-10) Last Admin: 11/21/23 10:01 Dose: 600 mg Lamotrigine (Lamotrigine 25 Mg Tablet) 150 mg PO DAILY [facility] Last Admin: 11/21/23 10:00 Dose: 150 mg Magnesium Hydroxide (Milk Of Magnesia 30 Ml Oral.Susp) 30 ml PO DAILY PRN PRN Reason: Constipation Nicotine (Nicotine 21 Mg Patch.Td24) 21 mg TRANSDERMA DAILY PRN PRN Reason: smoking cessation Nicotine Polacrilex (Nicotine Polacrilex Lozenge 4 Mg Lozenge) 4 mg BUCCAL Q2H PRN PRN Reason: Nicotine Cravings Pharmacy Consult (Consult Rx Etoh Phenob Im/Po) 1 each MISCELLANE ONCE PRN; Protocol PRN Reason: Consult order Phenobarbital (Phenobarbital 30 Mg Tablet) 30 mg PO BID [facility] Stop: 11/22/23 21:01 Last Admin: 11/21/23 10:01 Dose: 30 mg Phenobarbital (Phenobarbital 30 Mg Tablet) 30 mg PO DAILY [facility] Stop: 11/24/23 09:01 Senna/Docusate Sodium (Sennosides/Docusate Sodium Tablet) 1 tab PO BID [facility] Last Admin: 11/21/23 09:59 Dose: 1 tab Sertraline HCl (Sertraline Hcl 100 Mg Tablet) 100 mg PO DAILY [facility] Last Admin: 11/21/23 09:59 Dose: 100 mg Allergies Allergies Allergy/AdvReac Type Severity Reaction Status Date / Time lurasidone [From LATUDA] Allergy Unknown throat Verified 11/16/23 15:50 spasms, Speech-stuttering Assessment & Plan Assessment & Plan (1) Bipolar 2 disorder, major depressive episode: Status: Acute Code(s): F31.81 - Bipolar II disorder (2) Alcohol use disorder, moderate, dependence: Status: Acute Code(s): F10.20 - Alcohol dependence, uncomplicated (3) Cocaine use disorder, mild, abuse: Status: Acute Code(s): F14.10 - Cocaine abuse, uncomplicated Plan Ms. Gross is a 58 year-old with a hx of Bipolar disorder and alcohol use disorder who self presented to [facility] ED reporting increased depression, passive SI and increased alcohol use in the past 2 months after 10 months of sobriety. BAL 344. We discussed risks, benefits and alternative treatment options. She is currently on phenobarbital for alcohol withdrawal- minimal symptoms at this point. She reports lamictal, vraylar and sertraline were effective medication for her mood. Given that she has been off these medications for about one month, will restart lower doses, but plan to increase fairly fast. Sertraline 100mg po daily, increased of 200mg po daily. Lamictal 150mg po daily, instead of 300mg po daily. vraylar 3mg po daily. VS stable. Plan 1. Admit to M5, CV, 15 minutes checks for safety 2. continue phenobarb protocol and taper. VS stable, no signs of delirium or alcoholic hallucinosis. 3. sertraline 100mg po daily, vraylar 3mg po daily. d/c topamax due to no therapeutic benefit (for weight loss). d/c gabapentin per pt preference. continue lamictal 150mg po daily. 4. aftercare planning 5. added dulcolax for constipation s/s to IBS. 11/20 Lorazepam 2 mg HS x 1 dose for trial for insomnia/?sx of detox On 11/22 increase Lamictal to 200 mg daily On 11/21 increase Sertraline to 150 mg daily and on 11/22 increase to 200 mg daily Reason for continued inpatient stay Substantial Risk for: rapid decompensation and med/psych decompensation Time Spent With Patient Time: Total time managing care of this patient today ____ minutes.
--- NOTE | 2023-11-21 15:47 | MHC.RECOVRN ---
AUDIT-C Brief Intervention Pt had positive screen for unhealthy alcohol use on admission, subsequently met with t/w to discuss alcohol use and recovery supports/options. Pt voices concern regarding alcohol use and is aware that drinking at unhealthy levels is known to increase risk of alcohol related health problems. Pt reports almost 1.75 liters vodka daily x 1 month. Pt had recently been in a sober house on [address] x 11 months. Recurrence when she returned home to [place]. Pt expresses how alcohol use has impacted health, including negative impact on overall wellbeing and mental health. Discussed risk reduction strategies including drinking below the recommended limit. Provided pt with written resources including information on inpatient and outpatient treatment, NICK, harm reduction, and recovery coaching. Pt states medications don't work and I don't believe in recovery coaches. I believe in sponsors. Pt plans to attend AA after dc. Pt provided with t/w contact information if questions or concerns arise. Denies other questions or concerns at this time.
[2023-11-21 20:00] VITALS: BP 108/60; PULSE 79; TEMP 36.5; O2SAT 98
[2023-11-21] MEDS: hydrOXYzine HCL 25 MG TABLET 75 MG PO (20:59)
[2023-11-21] MEDS: LORazepam 1 MG TABLET 2 MG PO (21:00)
[2023-11-22 08:45] VITALS: BP 110/55; PULSE 62; RESP 16; TEMP 36.9; O2SAT 98
[2023-11-22] MEDS: Sennosides/Docusate Sodium TABLET 1 TAB PO ×2 (09:02→20:35)
[2023-11-22] MEDS: bisacodyL 5 MG TABLET.DR 10 MG PO (09:03)
[2023-11-22] MEDS: Cariprazine HCl 3 MG CAPSULE PO (09:03)
[2023-11-22] MEDS: Sertraline HCL 50 MG TABLET 150 MG PO (09:03)
[2023-11-22] MEDS: PHENobarbitaL 30 MG TABLET PO ×2 (09:03→20:35)
[2023-11-22] MEDS: lamoTRIgine 25 MG TABLET 150 MG PO (09:04)
[2023-11-22] MEDS: hydrOXYzine HCL 25 MG TABLET PO (18:40)
[2023-11-22 20:00] VITALS: BP 122/68; PULSE 73; TEMP 36.8; O2SAT 99
[2023-11-22] MEDS: LORazepam 1 MG TABLET 2 MG PO (20:35)
[2023-11-22] MEDS: hydrOXYzine HCL 25 MG TABLET 75 MG PO (20:35)
[2023-11-23 08:00] VITALS: BP 108/57; PULSE 62; RESP 16; TEMP 36.5; O2SAT 99
[2023-11-23] MEDS: Sertraline HCL 50 MG TABLET 150 MG PO (09:58)
[2023-11-23] MEDS: Sennosides/Docusate Sodium TABLET 1 TAB PO ×2 (09:58→21:01)
[2023-11-23] MEDS: lamoTRIgine 100 MG TABLET 200 MG PO (09:58)
[2023-11-23] MEDS: Sertraline HCL 100 MG TABLET 200 MG PO (09:58)
[2023-11-23] MEDS: Cariprazine HCl 3 MG CAPSULE PO (09:58)
[2023-11-23] MEDS: PHENobarbitaL 30 MG TABLET PO (09:58)
[2023-11-23] MEDS: lamoTRIgine 25 MG TABLET 150 MG PO (09:59)
--- NOTE | 2023-11-23 13:38 | HO.PSYCHPN ---
Subjective Subjective Date of Service: 11/23/23 Reason For Visit: SI Subjective Notes: Conditional Voluntary Interim History: The nursing staff reported the patient received Ativan last night and she had been requesting constantly about it. I agreed to give her Ativan 2 mg at night and she should discontinue after being discharged. No safety concerns at this moment. She is tapering off her phenobarbital with no problems. Mental Status Exam Mental Status Exam Patient Appearance: Appropriate Patient Orientation: Person, Place and Situation Level of Consciousness: Awake and Appropriate Patient Behavior: Appropriate Mood Description: Calm Affect Description: Constricted Patient Cognition Impaired: Yes Ability to Follow Directions: Good Speech Pattern: Clear Hallucinations: None Delusions: Not Present Thought Process: Distracted and Slowed Thinking Thought Content: positive for [place] and positive for [place] of Content Judgement: Fair Diagnostics Vital Signs (24Hr): Vital Signs - 24 hr 11/22/23 20:00 11/23/23 08:00 Temperature 98.2 F 97.7 F Pulse Rate 73 62 Respiratory Rate 16 Blood Pressure 122/68 108/57 L Pulse Oximetry 99 99 Oxygen Delivery Method Room Air Room Air BMI result Body Mass Index 33.1 Labs 11/16/23 16:12 11/19/23 08:24 Medications Medications Current Medications Acetaminophen (Acetaminophen 325 Mg Tablet) 650 mg PO Q6H PRN PRN Reason: Headache/Pain Mild Scale (1-3) Last Admin: 11/18/23 20:50 Dose: 650 mg Al Hydroxide/Mg Hydroxide (Magnesium Hydrox/Alum Hydrox 30 Ml Oral.Susp) 30 ml PO Q6H PRN PRN Reason: Heartburn/Nausea Bisacodyl (Bisacodyl 5 Mg Tablet.Dr) 10 mg PO DAILY PRN PRN Reason: Constipation Last Admin: 11/22/23 09:03 Dose: 10 mg Cariprazine (Cariprazine Hcl 3 Mg Capsule) 3 mg PO DAILY [facility] Last Admin: 11/23/23 09:58 Dose: 3 mg Hydroxyzine HCl (Hydroxyzine Hcl 25 Mg Tablet) 25 mg PO Q6H PRN PRN Reason: Anxiety Last Admin: 11/22/23 18:40 Dose: 25 mg Hydroxyzine HCl (Hydroxyzine Hcl 25 Mg Tablet) 75 mg PO BEDTIME [facility]EDU Last Admin: 11/22/23 20:35 Dose: 75 mg Ibuprofen (Ibuprofen 600 Mg Tablet) 600 mg PO Q6H PRN PRN Reason: pain (pain scale 1-10) Last Admin: 11/21/23 15:55 Dose: 600 mg Lamotrigine (Lamotrigine 100 Mg Tablet) 200 mg PO DAILY [facility] Last Admin: 11/23/23 09:58 Dose: 200 mg Lorazepam (Lorazepam 1 Mg Tablet) 2 mg PO BEDTIME ONE Stop: 11/23/23 21:01 Magnesium Hydroxide (Milk Of Magnesia 30 Ml Oral.Susp) 30 ml PO DAILY PRN PRN Reason: Constipation Nicotine (Nicotine 21 Mg Patch.Td24) 21 mg TRANSDERMA DAILY PRN PRN Reason: smoking cessation Nicotine Polacrilex (Nicotine Polacrilex Lozenge 4 Mg Lozenge) 4 mg BUCCAL Q2H PRN PRN Reason: Nicotine Cravings Pharmacy Consult (Consult Rx Etoh Phenob Im/Po) 1 each MISCELLANE ONCE PRN; Protocol PRN Reason: Consult order Phenobarbital (Phenobarbital 30 Mg Tablet) 30 mg PO DAILY [facility] Stop: 11/24/23 09:01 Last Admin: 11/23/23 09:58 Dose: 30 mg Senna/Docusate Sodium (Sennosides/Docusate Sodium Tablet) 1 tab PO BID [facility] Last Admin: 11/23/23 09:58 Dose: 1 tab Sertraline HCl (Sertraline Hcl 100 Mg Tablet) 200 mg PO DAILY [facility] Last Admin: 11/23/23 09:58 Dose: 200 mg Allergies Allergies Allergy/AdvReac Type Severity Reaction Status Date / Time lurasidone [From LATUDA] Allergy Unknown throat Verified 11/16/23 15:50 spasms, Speech-stuttering Assessment & Plan Assessment & Plan (1) Bipolar 2 disorder, major depressive episode: Status: Acute Code(s): F31.81 - Bipolar II disorder (2) Alcohol use disorder, moderate, dependence: Status: Acute Code(s): F10.20 - Alcohol dependence, uncomplicated (3) Cocaine use disorder, mild, abuse: Status: Acute Code(s): F14.10 - Cocaine abuse, uncomplicated Plan Ms. Gross is a 58 year-old with a hx of Bipolar disorder and alcohol use disorder who self presented to [facility] reporting increased depression, passive SI and increased alcohol use in the past 2 months after 10 months of sobriety. BAL 344. We discussed risks, benefits and alternative treatment options. She is currently on phenobarbital for alcohol withdrawal- minimal symptoms at this point. She reports lamictal, vraylar and sertraline were effective medication for her mood. Given that she has been off these medications for about one month, will restart lower doses, but plan to increase fairly fast. Sertraline 100mg po daily, increased of 200mg po daily. Lamictal 150mg po daily, instead of 300mg po daily. vraylar 3mg po daily. VS stable. Plan 1. Admit to M5, CV, 15 minutes checks for safety 2. continue phenobarb protocol and taper. VS stable, no signs of delirium or alcoholic hallucinosis. 3. sertraline 100mg po daily, vraylar 3mg po daily. d/c topamax due to no therapeutic benefit (for weight loss). d/c gabapentin per pt preference. continue lamictal 150mg po daily. 4. aftercare planning 5. added dulcolax for constipation s/s to IBS. 11/20 Lorazepam 2 mg HS x 1 dose for trial for insomnia/?sx of detox On 11/22 increase Lamictal to 200 mg daily On 11/21 increase Sertraline to 150 mg daily and on 11/22 increase to 200 mg daily 11/21 keep same treatment. 11/22 keep same treatment keep Ativan 2 mg at night Reason for continued inpatient stay Substantial Risk for: inability to function, rapid decompensation and med/psych decompensation Time Spent With Patient Time: Total time managing care of this patient today __20__ minutes.
[2023-11-23 20:00] VITALS: BP 132/72; PULSE 62; RESP 16; TEMP 36.6; O2SAT 98
[2023-11-23] MEDS: LORazepam 1 MG TABLET 2 MG PO (21:00)
[2023-11-23] MEDS: hydrOXYzine HCL 25 MG TABLET 75 MG PO (21:01)
[2023-11-24 08:00] VITALS: BP 123/59; PULSE 64; RESP 16; TEMP 36.9; O2SAT 98
[2023-11-24] MEDS: Ibuprofen 600 MG TABLET PO (08:59)
[2023-11-24] MEDS: Cariprazine HCl 3 MG CAPSULE PO (09:00)
[2023-11-24] MEDS: lamoTRIgine 100 MG TABLET 200 MG PO (09:00)
[2023-11-24] MEDS: Sertraline HCL 100 MG TABLET 200 MG PO (09:00)
[2023-11-24] MEDS: Sennosides/Docusate Sodium TABLET 1 TAB PO ×2 (09:01→20:25)
[2023-11-24] MEDS: PHENobarbitaL 30 MG TABLET PO (09:01)
--- NOTE | 2023-11-24 17:31 | P.PNPSI_ITS ---
Subjective Subjective Date of Service: 11/24/23 Reason For Visit: SI Subjective Notes: Conditional Voluntary Healthcare Proxy: No Guardianship: No Medical Problems Affecting Mental Status: No Interim History: Pt reports feeling improved, asks about discharge. Has bills to pay and room- mate will be home from [place] tomorrow. Reports sleep has improved with Lorazepam [address] use and LT options. Pt reports she may require sleep eval as was suggested by a previous provider. Will attempt to schedule a home eval Medication Compliance: Yes Side effects from medications: No Attending Groups: Intermittent Review of Systems Acute medical concerns: No Medical Review of Systems: unchanged Review of Systems Review of Systems Yes all other systems are reviewed and are negative Mental Status Exam Mental Status Exam Patient Appearance: Appropriate Patient Orientation: Person, Place and Situation Level of Consciousness: Awake and Appropriate Patient Behavior: Appropriate Mood Description: Calm Affect Description: Constricted Patient Cognition Impaired: Yes Ability to Follow Directions: Good Speech Pattern: Clear Hallucinations: None Delusions: Not Present Thought Process: Intact Thought Content: positive for [place] Judgement: Good Diagnostics Vital Signs (24Hr): Vital Signs - 24 hr 11/23/23 20:00 11/24/23 08:00 Temperature 97.8 F 98.4 F Pulse Rate 62 64 Respiratory Rate 16 16 Blood Pressure 132/72 123/59 L Pulse Oximetry 98 98 Oxygen Delivery Method Room Air Room Air BMI result Body Mass Index 33.1 Labs 11/16/23 16:12 11/19/23 08:24 Medications Medications Current Medications Acetaminophen (Acetaminophen 325 Mg Tablet) 650 mg PO Q6H PRN PRN Reason: Headache/Pain Mild Scale (1-3) Last Admin: 11/18/23 20:50 Dose: 650 mg Al Hydroxide/Mg Hydroxide (Magnesium Hydrox/Alum Hydrox 30 Ml Oral.Susp) 30 ml PO Q6H PRN PRN Reason: Heartburn/Nausea Bisacodyl (Bisacodyl 5 Mg Tablet.Dr) 10 mg PO DAILY PRN PRN Reason: Constipation Last Admin: 11/22/23 09:03 Dose: 10 mg Cariprazine (Cariprazine Hcl 3 Mg Capsule) 3 mg PO DAILY [facility] Last Admin: 11/24/23 09:00 Dose: 3 mg Hydroxyzine HCl (Hydroxyzine Hcl 25 Mg Tablet) 25 mg PO Q6H PRN PRN Reason: Anxiety Last Admin: 11/22/23 18:40 Dose: 25 mg Hydroxyzine HCl (Hydroxyzine Hcl 25 Mg Tablet) 75 mg PO BEDTIME [facility] Last Admin: 11/23/23 21:01 Dose: 75 mg Ibuprofen (Ibuprofen 600 Mg Tablet) 600 mg PO Q6H PRN PRN Reason: pain (pain scale 1-10) Last Admin: 11/24/23 08:59 Dose: 600 mg Lamotrigine (Lamotrigine 100 Mg Tablet) 200 mg PO DAILY [facility] Last Admin: 11/24/23 09:00 Dose: 200 mg Lorazepam (Lorazepam 1 Mg Tablet) 2 mg PO BEDTIME ONE Stop: 11/24/23 21:01 Magnesium Hydroxide (Milk Of Magnesia 30 Ml Oral.Susp) 30 ml PO DAILY PRN PRN Reason: Constipation Nicotine (Nicotine 21 Mg Patch.Td24) 21 mg TRANSDERMA DAILY PRN PRN Reason: smoking cessation Nicotine Polacrilex (Nicotine Polacrilex Lozenge 4 Mg Lozenge) 4 mg BUCCAL Q2H PRN PRN Reason: Nicotine Cravings Pharmacy Consult (Consult Rx Etoh Phenob Im/Po) 1 each MISCELLANE ONCE PRN; Protocol PRN Reason: Consult order Senna/Docusate Sodium (Sennosides/Docusate Sodium Tablet) 1 tab PO BID [facility] Last Admin: 11/24/23 09:01 Dose: 1 tab Sertraline HCl (Sertraline Hcl 100 Mg Tablet) 200 mg PO DAILY [facility] Last Admin: 11/24/23 09:00 Dose: 200 mg Allergies Allergies Allergy/AdvReac Type Severity Reaction Status Date / Time lurasidone [From LATUDA] Allergy Unknown throat Verified 11/16/23 15:50 spasms, Speech-stuttering Assessment & Plan Assessment & Plan (1) Bipolar 2 disorder, major depressive episode: Status: Acute Code(s): F31.81 - Bipolar II disorder (2) Alcohol use disorder, moderate, dependence: Status: Acute Code(s): F10.20 - Alcohol dependence, uncomplicated (3) Cocaine use disorder, mild, abuse: Status: Acute Code(s): F14.10 - Cocaine abuse, uncomplicated Plan Ms. Gross is a 58 year-old with a hx of Bipolar disorder and alcohol use disorder who self presented to [facility] reporting increased depression, passive SI and increased alcohol use in the past 2 months after 10 months of sobriety. BAL 344. We discussed risks, benefits and alternative treatment options. She is currently on phenobarbital for alcohol withdrawal- minimal symptoms at this point. She reports lamictal, vraylar and sertraline were effective medication for her mood. Given that she has been off these medications for about one month, will restart lower doses, but plan to increase fairly fast. Sertraline 100mg po daily, increased of 200mg po daily. Lamictal 150mg po daily, instead of 300mg po daily. vraylar 3mg po daily. VS stable. Plan 1. Admit to M5, CV, 15 minutes checks for safety 2. continue phenobarb protocol and taper. VS stable, no signs of delirium or alcoholic hallucinosis. 3. sertraline 100mg po daily, vraylar 3mg po daily. d/c topamax due to no therapeutic benefit (for weight loss). d/c gabapentin per pt preference. continue lamictal 150mg po daily. 4. aftercare planning 5. added dulcolax for constipation s/s to IBS. 11/20 Lorazepam 2 mg HS x 1 dose for trial for insomnia/?sx of detox On 11/22 increase Lamictal to 200 mg daily On 11/21 increase Sertraline to 150 mg daily and on 11/22 increase to 200 mg daily 11/21 keep same treatment. 11/22 keep same treatment keep Ativan 2 mg at night 11/23 Discharge planning Ativan 2 mg HS Schedule in home CALLIE evaluation. Informed Consent: understands Reason for continued inpatient stay Substantial Risk for: rapid decompensation Time Spent With Patient Time: Total time managing care of this patient today ____ minutes.
[2023-11-24 20:00] VITALS: BP 107/54; PULSE 64; TEMP 36.3; O2SAT 97
[2023-11-24] MEDS: hydrOXYzine HCL 25 MG TABLET 75 MG PO (20:26)
[2023-11-24] MEDS: LORazepam 1 MG TABLET 2 MG PO (20:26)
[2023-11-25 08:00] VITALS: BP 111/56; PULSE 73; RESP 16; TEMP 36.4; O2SAT 96
[2023-11-25] MEDS: Sertraline HCL 100 MG TABLET 200 MG PO (09:08)
[2023-11-25] MEDS: Cariprazine HCl 3 MG CAPSULE PO (09:09)
[2023-11-25] MEDS: lamoTRIgine 100 MG TABLET 200 MG PO (09:09)
[2023-11-25] MEDS: Sennosides/Docusate Sodium TABLET 1 TAB PO ×2 (09:09→20:26)
[2023-11-25] MEDS: Ibuprofen 600 MG TABLET PO (09:36)
--- NOTE | 2023-11-25 17:43 | P.PNPSI_ITS ---
Subjective Subjective Date of Service: 11/25/23 Reason For Visit: SI Subjective Notes: Conditional Voluntary Interim History: Pt preparing for discharge. Review of meds, DC plan Per [facility] scheduling, PCP will need to order sleep study. Pt to call for follow up appt and to discuss. Denies SI/HI/AH/VH. No sx of psychosis or anderson. Pt reports detox is completed. Medication Compliance: Yes Side effects from medications: No Attending Groups: Intermittent Review of Systems Acute medical concerns: No Medical Review of Systems: unchanged Review of Systems Review of Systems Yes all other systems are reviewed and are negative Mental Status Exam Mental Status Exam Patient Appearance: Appropriate Patient Orientation: Person, Place and Situation Level of Consciousness: Awake and Appropriate Patient Behavior: Appropriate Mood Description: Calm Affect Description: Constricted Patient Cognition Impaired: Yes Ability to Follow Directions: Good Speech Pattern: Clear Hallucinations: None Delusions: Not Present Thought Process: Intact Thought Content: positive for [place] Judgement: Good Diagnostics Vital Signs (24Hr): Vital Signs - 24 hr 11/24/23 20:00 11/25/23 08:00 Temperature 97.4 F 97.5 F Pulse Rate 64 73 Respiratory Rate 16 Blood Pressure 107/54 L 111/56 L Pulse Oximetry 97 96 Oxygen Delivery Method Room Air Room Air BMI result Body Mass Index 33.1 Labs 11/16/23 16:12 11/19/23 08:24 Medications Medications Current Medications Acetaminophen (Acetaminophen 325 Mg Tablet) 650 mg PO Q6H PRN PRN Reason: Headache/Pain Mild Scale (1-3) Last Admin: 11/18/23 20:50 Dose: 650 mg Al Hydroxide/Mg Hydroxide (Magnesium Hydrox/Alum Hydrox 30 Ml Oral.Susp) 30 ml PO Q6H PRN PRN Reason: Heartburn/Nausea Bisacodyl (Bisacodyl 5 Mg Tablet.Dr) 10 mg PO DAILY PRN PRN Reason: Constipation Last Admin: 11/22/23 09:03 Dose: 10 mg Cariprazine (Cariprazine Hcl 3 Mg Capsule) 3 mg PO DAILY [facility] Last Admin: 11/25/23 09:09 Dose: 3 mg Hydroxyzine HCl (Hydroxyzine Hcl 25 Mg Tablet) 25 mg PO Q6H PRN PRN Reason: Anxiety Last Admin: 11/22/23 18:40 Dose: 25 mg Hydroxyzine HCl (Hydroxyzine Hcl 25 Mg Tablet) 75 mg PO BEDTIME [facility] Last Admin: 11/24/23 20:26 Dose: 75 mg Ibuprofen (Ibuprofen 600 Mg Tablet) 600 mg PO Q6H PRN PRN Reason: pain (pain scale 1-10) Last Admin: 11/25/23 09:36 Dose: 600 mg Lamotrigine (Lamotrigine 100 Mg Tablet) 200 mg PO DAILY [facility] Last Admin: 11/25/23 09:09 Dose: 200 mg Magnesium Hydroxide (Milk Of Magnesia 30 Ml Oral.Susp) 30 ml PO DAILY PRN PRN Reason: Constipation Nicotine (Nicotine 21 Mg Patch.Td24) 21 mg TRANSDERMA DAILY PRN PRN Reason: smoking cessation Nicotine Polacrilex (Nicotine Polacrilex Lozenge 4 Mg Lozenge) 4 mg BUCCAL Q2H PRN PRN Reason: Nicotine Cravings Pharmacy Consult (Consult Rx Etoh Phenob Im/Po) 1 each MISCELLANE ONCE PRN; Protocol PRN Reason: Consult order Senna/Docusate Sodium (Sennosides/Docusate Sodium Tablet) 1 tab PO BID [facility] Last Admin: 11/25/23 09:09 Dose: 1 tab Sertraline HCl (Sertraline Hcl 100 Mg Tablet) 200 mg PO DAILY [facility] Last Admin: 11/25/23 09:08 Dose: 200 mg Allergies Allergies Allergy/AdvReac Type Severity Reaction Status Date / Time lurasidone [From LATUDA] Allergy Unknown throat Verified 11/16/23 15:50 spasms, Speech-stuttering Assessment & Plan Assessment & Plan (1) Bipolar 2 disorder, major depressive episode: Status: Acute Code(s): F31.81 - Bipolar II disorder (2) Alcohol use disorder, moderate, dependence: Status: Acute Code(s): F10.20 - Alcohol dependence, uncomplicated (3) Cocaine use disorder, mild, abuse: Status: Acute Code(s): F14.10 - Cocaine abuse, uncomplicated Plan Ms. Gross is a 58 year-old with a hx of Bipolar disorder and alcohol use disorder who self presented to [facility] reporting increased depression, passive SI and increased alcohol use in the past 2 months after 10 months of sobriety. BAL 344. We discussed risks, benefits and alternative treatment options. She is currently on phenobarbital for alcohol withdrawal- minimal symptoms at this point. She reports lamictal, vraylar and sertraline were effective medication for her mood. Given that she has been off these medications for about one month, will restart lower doses, but plan to increase fairly fast. Sertraline 100mg po daily, increased of 200mg po daily. Lamictal 150mg po daily, instead of 300mg po daily. vraylar 3mg po daily. VS stable. Plan 1. Admit to M5, CV, 15 minutes checks for safety 2. continue phenobarb protocol and taper. VS stable, no signs of delirium or alcoholic hallucinosis. 3. sertraline 100mg po daily, vraylar 3mg po daily. d/c topamax due to no therapeutic benefit (for weight loss). d/c gabapentin per pt preference. continue lamictal 150mg po daily. 4. aftercare planning 5. added dulcolax for constipation s/s to IBS. 11/20 Lorazepam 2 mg HS x 1 dose for trial for insomnia/?sx of detox On 11/22 increase Lamictal to 200 mg daily On 11/21 increase Sertraline to 150 mg daily and on 11/22 increase to 200 mg daily 11/21 keep same treatment. 11/22 keep same treatment keep Ativan 2 mg at night 11/23 Discharge planning Ativan 2 mg HS Schedule in home CALLIE evaluation. 11/24 Discharge 11/25 Reason for continued inpatient stay Substantial Risk for: stable for discharge Time Spent With Patient Time: Total time managing care of this patient today ____ minutes.
[2023-11-25 20:00] VITALS: BP 117/60; PULSE 65; TEMP 36.4; O2SAT 98
[2023-11-25] MEDS: hydrOXYzine HCL 25 MG TABLET 75 MG PO (20:26)
[2023-11-25] MEDS: LORazepam 1 MG TABLET 2 MG PO (21:51)
[2023-11-26 08:00] VITALS: BP 113/58; PULSE 69; RESP 16; TEMP 36.8; O2SAT 96
[2023-11-26] MEDS: Sertraline HCL 100 MG TABLET 200 MG PO (09:10)
[2023-11-26] MEDS: Cariprazine HCl 3 MG CAPSULE PO (09:10)
[2023-11-26] MEDS: lamoTRIgine 100 MG TABLET 200 MG PO (09:10)
[2023-11-26] MEDS: Sennosides/Docusate Sodium TABLET 1 TAB PO (09:10)
--- NOTE | 2023-11-26 10:12 | P.DS_ITS ---
DS: Providers Provider Date of Service: 11/26/23 Date of admission: 11/18/23 15:52 Date of discharge: 11/26/23 Primary care physician: Unknown Physician Admitting clinician: Viviana Moncada Attending physician on admission: Antonio Giron Consults: 11/18/23 20:01 Addiction Medicine Routine Consulting Provider: Addiction Covering Reason for consultation: ETOH use daily Has provider been notified: No Attending physician on discharge: Antonio Giron Discharging clinician: Bela Rae DS: Diagnosis Discharge Diagnosis (1) Bipolar 2 disorder, major depressive episode: Status: Acute (2) Alcohol use disorder, moderate, dependence: Status: Acute (3) Cocaine use disorder, mild, abuse: Status: Acute DS: Medications Discharge Medications Home Medications: Previous Rx's ?Medication ?Instructions ?Recorded cariprazine 3 mg capsule (Vraylar) 3 mg PO DAILY #30 caps 11/26/23 hydroxyzine HCl 25 mg tablet 75 mg (3 x 25 mg) PO BEDTIME #90 11/26/23 tabs lamotrigine 150 mg tablet 300 mg (2 x 150 mg) PO DAILY #60 11/26/23 (Lamictal) tabs sennosides 8.6 mg-docusate sodium 1 tab PO BID #60 tabs 11/26/23 50 mg tablet (Senna Plus) sertraline 200 mg capsule 200 mg PO QAM #30 caps 11/26/23 suvorexant 5 mg tablet (Belsomra) 5 mg PO BEDTIME #7 tabs 11/26/23 Mental Status Exam Mental Status Exam Patient Appearance: Appropriate Patient Orientation: Person, Place and Situation Level of Consciousness: Awake and Appropriate Patient Behavior: Appropriate Mood Description: Calm Affect Description: Constricted Patient Cognition Impaired: Yes Ability to Follow Directions: Good Speech Pattern: Clear Hallucinations: None Delusions: Not Present Thought Process: Intact Thought Content: positive for [place] Judgement: Good DS: Summary Hospital Course Hospital Course: Admission to adult psychiatry for exacerbation of bipolar disorder, type II, alcohol and cocaine use disorders. Pt reports an increase in depression, SI with a 60 day relapse after 10 months of sobriety reported and stopping meds for ~30 days. Pt did well with a phenobarbital detox. Medications were assessed and retitrated. Pt with sleeping difficulty. She will follow up with her PCP and schedule a sleep study to rule out CALLIE. Pt is discharged with out patient appointments scheduled. Status at Discharge Functional status at discharge: independent ambulation Overall status at discharge: patient is back to baseline Time Spent with Patient Time attestation: Total time managing care of this patient today ____ minutes. Time spent: Less than 30 minutes Discharge Plan Discharge Anticipated Discharge Date/Time: 11/26/23 12:00 Patient Disposition: Home, Self-Care Discharge Diagnosis: Bipolar Disorder, type II Alcohol Use Disorder, severe,dependence Stimulant Use Disorder, Cocaine Referrals: [facility]: Reilly Villalta (therapy) [Other] - 12/03/23 1:00 pm (Hospital Discharge Initial diagnostic evaluation for therapy Appointment is in person at [facility].) [facility]:Brett Smith(psychiatry) [Other] - 12/31/23 10:00 am (Hospital Discharge Appointment Initial psychiatric evaluation for psychiatric medication management Appointment is by tele-health. Check your email for information regarding appointment. ) [facility]: Brett Smith(psychiatry) [Other] - 01/29/24 10:00 am (Psychiatric medication management appointment Appointment is by tele-health. Please check your email for information about the appointment.) Physician,Estephania J [Primary Care Provider] - 2 Weeks (No release for PCP. Pt requested to make appointment themselves after discharge. ) Discharge Medications: New hydroxyzine HCl 25 mg Tablet 75 mg PO BEDTIME Qty: 90 0RF sennosides-docusate sodium [Senna Plus] 8.6-50 mg Tablet 1 tab PO BID Qty: 60 0RF Belsomra 5 mg tablet 5 mg PO BEDTIME Qty: 7 0RF Continued lamotrigine [Lamictal] 150 mg Tablet 300 mg PO DAILY Qty: 60 0RF Vraylar 3 mg Capsule 3 mg PO DAILY Qty: 30 0RF sertraline 200 mg Capsule 200 mg PO QAM Qty: 30 0RF Discontinued hydroxyzine HCl 50 mg Tablet 50 mg PO BEDTIME topiramate [Topamax] 100 mg Tablet 100 mg PO BEDTIME Discharge Orders: Discharge Order (Routine); Ordered 09/11/24 Ordered By: Bela Rae Diet: Advance to usual diet Activity on Discharge: As tolerated Stand Alone Forms: Patient Portal Discharge page, Community Support Print Language: Citizen Of [place] Care Plan Goals: Mood and Behavioral Stabilization Work on abstinence Health Concerns: Mood and Behavioral Stabilization Work on abstinence Plan of Treatment: Attend scheduled appointments Take medications as directed Discuss sleep study with your primary care. --[facility] [phone] Assessment: Scheduled discharge No SI/HI/AH/VH sx of anderson or psychosis Discharge Date/Time: 11/26/23 10:35
== END 2023-11-26 10:35 | disposition home or self-care (01) | DRG 885 ==
LOC: HO.ED 11-18 16:17 → HO.PM5 11-18 16:28
PROVIDERS: Physician Assistant Medical; Admitting Provider Social Worker; Emergency Provider Emergency Medicine; Visit Provider Clinical Nurse Specialist Psychiatric/Mental Health, Adult
DX: F31.81 Bipolar II disorder (principal); R45.851 Suicidal ideations; F10.239 Alcohol dependence with withdrawal, unspecified; G47.33 Obstructive sleep apnea (adult) (pediatric); F17.210 Nicotine dependence, cigarettes, uncomplicated; F10.229 Alcohol dependence with intoxication, unspecified; Z71.6 Tobacco abuse counseling; Y90.8 Blood alcohol level of 240 mg/100 ml or more; F14.10 Cocaine abuse, uncomplicated; Z20.822 Contact with and (suspected) exposure to COVID-19; Z79.899 Other long term (current) drug therapy
CPT/HCPCS: 36415; 80053; 80061; 80143; 80179; 80307; 81001; 81025; 82607; 82746; 83036; 83735; 84443; 85025; 87635; 93005; 99285; J2560; S9485

== ENCOUNTER → 2023-11-18 15:52 | Outpatient (BNV) | payer MEDICARE, MEDICAID, SELFPAY | PROVIDERS: Admitting Provider Social Worker; Emergency Provider Emergency Medicine; Visit Provider Social Worker | DX: F31.81 Bipolar II disorder (principal); F14.10 Cocaine abuse, uncomplicated; F10.20 Alcohol dependence, uncomplicated | CPT/HCPCS: 90792; 99231; 99232; 99238 ==

== ENCOUNTER 2024-11-07 07:21 | Emergency (ER) | payer MEDICARE, MEDICAID, SELFPAY ==
[2024-11-07] VITALS (7 sets, daily range): BP systolic 136–150; BP diastolic 55–86; PULSE 65–72; RESP 16–18; TEMP 36.5–36.8; O2SAT 95–97; BMI 34.3
--- NOTE | ~2024-11-07 | US_ITS ---
Please refer to combined report. Electronically signed by: Francis Crow MD 11/08/2024 08:22 AM EDT
--- NOTE | ~2024-11-07 | CT_ITS ---
CLINICAL HISTORY: Rt side flank pain radiated to right lower abdomen CT abdomen and pelvis without contrast Comparison: None provided Findings: The lung bases are clear. The liver, spleen, adrenal glands and pancreas are unremarkable. The gallbladder is absent. The kidneys, ureters and bladder are within normal limits. Normal appendix. No bowel obstruction or free air. The uterus appears within normal limits. There is a mass abutting the right aspect of the uterus, reference axial image 71, measuring up to 4.5 cm most likely reflecting a fibroid. No acute osseous finding. Impression: No definite acute process. Probable 4.5 cm uterine fibroid, exophytic/pedunculated. This document has been electronically signed by: Kwan Steward MD on 11/07/2024 09:06:41
--- NOTE | ~2024-11-07 | US_ITS ---
CLINICAL HISTORY: r o torsion ( she has been medicated now US pelvis transvaginal with Doppler Comparison: CT/REG/SR - CT ABDOMEN PELVIS WO IV CON - 11/07/24 08:14 EDT Findings: Transvaginal scanning performed with Doppler. Anteverted uterus is 6.1 x 2.8 x 3.6 cm length. Normal myometrium. There are cervical nabothian cysts. No endometrial lesion, 8 mm thickness. Mild cystic change within the endometrium. A 4.4 x 2.6 x 2.9 cm hypoechoic mass was documented within the right adnexa, corresponding to the mass documented on recent CT. This demonstrates color flow and both arterial and venous Doppler waveforms. Although the radiation therapy technologist documented this to represent the right ovary, on correlation with CT images, it appears to be posterior and inferior to the right ovary with nonvisualization of the right ovary on this examination. The left ovary was not visualized. No free fluid. IMPRESSION: 1. There is a 4.4 cm mass within the right adnexa. Color flow and arterial and venous Doppler waveforms were documented within this mass. This is felt to most likely represent a pedunculated fibroid and less likely an abnormal, enlarged ovary. 2. Thickening of the endometrium with mild cystic change suggesting hyperplasia. This document has been electronically signed by: Lia Quesada MD on 11/07/2024 17:15:53
--- NOTE | 2024-11-07 07:30 | ED.ABDPAIN ---
HPI - Abdominal Pain General Chief Complaint: Abdominal Pain Stated Complaint: RLQ PAIN,X2D,N/V/D PER EMS Time Seen by Provider: 11/07/24 07:24 Source: patient Mode of arrival: EMS Limitations: no limitations History of Present Illness HPI narrative: This is 59 years old female presented to the emergency department with a chief complaint of right flank pain radiated to the right lower quadrant, pain has been going on for about 3 days. She is also complaining of nausea and vomiting. She has a history of alcohol abuse in the past, she had cholecystectomy in the past she has also has a history of bipolar disorder MD elicited complaint: abdominal pain Pertinent past history: none Onset (ago): day(s) (2) Pain Consistency: constant Location: R flank Severity: moderate Quality: cramping Radiation: RLQ Migration to: no migration Exacerbating factors: nothing Relieving factors: nothing Associated symptoms: nausea and vomiting Related Data Patient : No Previous Rx's ?Medication ?Instructions ?Recorded cariprazine 3 mg capsule (Vraylar) 3 mg PO DAILY #30 caps 11/26/23 hydroxyzine HCl 25 mg tablet 75 mg (3 x 25 mg) PO BEDTIME #90 11/26/23 tabs lamotrigine 150 mg tablet 300 mg (2 x 150 mg) PO DAILY #60 11/26/23 (Lamictal) tabs sennosides 8.6 mg-docusate sodium 1 tab PO BID #60 tabs 11/26/23 50 mg tablet (Senna Plus) sertraline 200 mg capsule 200 mg PO QAM #30 caps 11/26/23 suvorexant 5 mg tablet (Belsomra) 5 mg PO BEDTIME #7 tabs 11/26/23 cefuroxime axetil 250 mg tablet 250 mg PO Q12H #10 tabs 11/11/24 Allergies Allergy/AdvReac Type Severity Reaction Status Date / Time lurasidone (From LATUDA) Allergy Unknown throat Verified 11/07/24 07:34 spasms, Speech-stuttering Review of Systems Constitutional: Reports no additional constitutional complaints Gastrointestinal: Reports abdominal pain, Reports nausea and Reports vomiting PMFSH Past Medical History PMFSH Narrative: Alcohol abuse, bipolar disorder, cocaine abuse, status post left hip replacement status post right shoulder replacement cholecystectomy Social History Social History Household Members: Other Housing: Apartment Do you presently have visiting nurse or other home services: No Alcohol intake: current Alcohol intake frequency: 0-2 drinks per day Alcohol type: hard liquor Patient Tobacco Use Status: Current everyday Tobacco user Tobacco use type: Cigarette Cigarettes Per Day: 5 Smoked in Last 30 Days: Yes Second Hand Smoke Exposure: No Use of substances other than those prescribed or required for medical reasons: Yes Substance Use Type: Marijuana Substance Use Frequency: Daily Advance Directives: No Advance Directives Information Provided: No Do you have a plan to hurt others: No Plan Patient : No service: No Sexual orientation: Don't Know Physical Exam ED Exam Exam: No acute distress Vital Signs: BMI result Body Mass Index 34.3 Const General: cooperative, comfortable and no acute distress Nutritional Appearance: well nourished Orientation/consciousness: patient oriented x3 Limitations: no limitations HENMT Head: Yes normal to inspection General nose exam: Normal external nose present Face and sinus: Yes normal facial exam Neck Neck: Yes normal visual inspection and Yes full ROM Chest Chest palpation & inspection: normal inspection of the chest Resp Effort & Inspection: normal respiratory effort Auscultation: clear to auscultation bilaterally Cardio Jugular venous distension: no JVD Rate: regular rate Rhythm: regular rhythm GI Inspection: Yes normal to inspection Palpation (GI): Soft to palpation, not firm and nontender Skin General skin exam: no rashes or lesions noted, elasticity normal and turgor normal Lesions: no lesions Rashes: no rashes Neuro General: patient oriented x3 Cranial nerves: Yes CN's II-XII intact bilaterally Cognition (Neuro): normal cognition Motor exam (neuro): 5/5 motor strength present throughout Course Reevaluation(s) Reevaluation #1: Patient had a follow up urine culture that grew E coli and greater than [id number] this is pansensitive. I called the patient and she reports still having some lower abdominal discomfort and some pain with urination. I sent her a prescription of cefuroxime b.i.d. x5 days she will follow up with her hand plate stacker for her fibroids Time: 09:25 Medical Decision Making Medical Decision Making MDM Narrative: The patient is here with right flank pain radiated to the right lower quadrant differential diagnosis is broad kidney stones UTI bowel obstruction we will obtain labs imaging Differential Diagnosis Differential Diagnoses: The differential diagnosis associated with the presentation includes Kidney stones/UTI/bowel obstruction/colitis/diverticulitis Admission/Observation Consideration of admission/observation: Escalation of care including admission/observation considered Lab Data 11/07/24 07:49 11/07/24 07:49 Labs: Lab Results 11/07/24 11/07/24 11/07/24 Range/Units 07:49 08:32 08:36 WBC 7.6 (4.8-10.8) X10*3/uL RBC 4.17 L (4.20-5.50) X10*6/uL Hgb 13.9 (12.0-16.0) g/dl Hct 39.8 (37.0-47.0) % MCV 95.4 (80.0-98.0) fL MCH 33.3 H (27.0-33.0) pg MCHC 34.9 (31.0-35.0) g/dl RDW 14.0 (11.0-16.0) % Plt Count 214 D (160-400) X10*3/uL MPV 9.1 L (9.4-12.3) fL Immature Gran % (Auto) 0.3 (0.0-0.4) % Neut % (Auto) 72.3 (45-73) % Lymph % (Auto) 18.4 L (20-40) % [place] % (Auto) 6.7 (2-11) % Eos % (Auto) 1.9 (0-4) % Baso % (Auto) 0.4 (0-2) % Lymph # (Auto) 1.4 (1.2-4.9) X10*3/uL [place] # (Auto) 0.5 (0.1-1.2) X10*3/uL Eos # (Auto) 0.1 (0.0-0.4) X10*3/uL Baso # (Auto) 0.0 (0.0-0.2) X10*3/uL Abs Immat Gran (auto) 0.02 (0.00-0.03) X10*3/uL Absolute Neuts (auto) 5.5 (2.0-8.3) x10*3/uL Absolute Nucleated RBC 0.000 (0.0-0.012) X10*3/uL Nucleated RBC % (auto) 0.0 (0.0-0.2) /100WBC Sodium 142 (135-145) mmol/L Potassium 4.1 (3.3-5.1) mmol/L Chloride 102 (96-108) mmol/L Carbon Dioxide 27 (22-29) mmol/L Anion Gap 17 (12-20) BUN 8 L (9-16) mg/dL Creatinine 0.84 (0.5-1.4) mg/dL Estim Creat Clear Calc 88.0 Estimated GFR > 60 Random Glucose 151 H (60-115) mg/dL Calcium 9.8 (8.4-10.2) mg/dL Total Bilirubin 1.1 H (0.0-1.0) mg/dL AST 20 (5-31) U/L ALT 13 (0-31) U/L Alkaline Phosphatase 95 (39-117) U/L Total Protein 7.5 (6.5-8.0) g/dL Albumin 4.6 (3.5-5.0) g/dL Lipase 10 (8-78) U/L Urine Color Yellow Urine Appearance Clear Urine pH 6.5 (5.0-9.0) Ur Specific [place] <= 1.005 (1.005-1.025) Urine Protein Trace (Neg-Trace) mg/dL Urine Glucose (UA) Negative (Negative) mg/dL Urine Ketones Negative (Negative) mg/dL Urine Blood Small (1+) H (Negative) Urine Nitrite Positive H (Negative) Ur Leukocyte Esterase Moderate (2+) H (Negative) Urine RBC 6-10 H (0-2) /HPF Urine WBC 11-20 H (0-5) /HPF Ur Squamous Epith Cells 0-2 (0-2) /HPF Urine Bacteria 4+ (None Seen) Hyaline Casts 0-2 (0-2) /LPF Urine Opiates Screen POSITIVE H (Not Detect) Ur Buprenorphine Scrn Not Detected (Not Detect) ng/mL Ur Oxycodone Screen Not Detected (Not Detect) ng/mL Urine Methadone Screen Not Detected (Not Detect) ng/mL Urine Fentanyl Screen Not Detected (Not Detect) Ur Barbiturates Screen Not Detected (Not Detect) Ur Phencyclidine Scrn Not Detected (Not Detect) Ur Amphetamines Screen Not Detected (Not Detect) U Benzodiazepines Scrn Not Detected (Not Detect) Urine Cocaine Screen Not Detected (Not Detect) U Marijuana (THC) Screen POSITIVE H (Not Detect) Ethyl Alcohol < 10 mg/dL Independent Historian Clinical information obtained from an independent historian. History obtained from or confirmed by: EMS (Spoke with the EMS) Medications Administered Discontinued Medications Generic Name Dose Route Start Last Admin Trade Name Gustavo PRN Reason Stop Dose Admin Hydromorphone HCl 0.5 mg 11/07/24 09:00 11/07/24 09:05 Hydromorphone Hcl 0.5 Mg/0.5 Ml Syringe IVPUSH 11/07/24 09:01 0.5 mg ONCE ONE Administration Protocol Hydromorphone HCl 0.5 mg 11/07/24 14:12 11/07/24 14:38 Hydromorphone Hcl 0.5 Mg/0.5 Ml Syringe IVPUSH 11/07/24 14:13 0.5 mg ONCE ONE Administration Protocol Sodium Chloride 1,000 mls @ 999 mls/hr 11/07/24 07:30 11/07/24 10:45 Ns IVCONT 11/07/24 08:30 Infused .Q1H1M CHINEDU Infusion Morphine Sulfate 4 mg 11/07/24 07:28 11/07/24 07:53 Morphine Sulfate 4 Mg/Ml Cartridge IVPUSH 11/07/24 07:29 4 mg ONCE ONE Administration Protocol Ondansetron HCl 4 mg 11/07/24 07:28 11/07/24 07:53 Ondansetron Hcl 4 Mg/2 Ml Vial IVPUSH 11/07/24 07:29 4 mg ONCE ONE Administration Discharge Plan Discharge Clinical Impression: Abdominal pain Patient Disposition: Home, Self-Care Instructions: Abdominal Pain (ED) Additional Instructions: Follow-up with your primary care physician, your tests are very reassuring you have a normal white count a normal CAT scan, you do have a fibroid of the uterus. The exact reason for the pain is unclear but does know appeared to be a life-threatening condition I think you could go home and follow-up with your primary care physician Prescriptions: New cefuroxime axetil 250 mg tablet 250 mg PO Q12H Qty: 10 0RF No Action hydroxyzine HCl 25 mg Tablet 75 mg PO BEDTIME Qty: 90 0RF sennosides-docusate sodium [Senna Plus] 8.6-50 mg Tablet 1 tab PO BID Qty: 60 0RF lamotrigine [Lamictal] 150 mg Tablet 300 mg PO DAILY Qty: 60 0RF Vraylar 3 mg Capsule 3 mg PO DAILY Qty: 30 0RF sertraline 200 mg Capsule 200 mg PO QAM Qty: 30 0RF Belsomra 5 mg tablet 5 mg PO BEDTIME Qty: 7 0RF Referrals: Physician,Nonstaff [Primary Care Provider, Medical] Interventions: ED Discharge Assessment Last Done: 11/07/24 16:36 Discharge Date/Time: 11/07/24 16:37 Print Language: [place]
[2024-11-07 07:52] LABS: MANUAL DIFF FLAG NO
[2024-11-07 07:55] LABS: Hematocrit 39.8 % (37.0-47.0); Hemoglobin 13.9 g/dl (12.0-16.0); Imm Gran Abs Auto 0.02 X10*3/uL (0.00-0.03); Imm Gran Pct Auto 0.3 % (0.0-0.4); Lymphocytes Absolute Auto 1.4 X10*3/uL (1.2-4.9); Mean Corpuscular HGB Conc 34.9 g/dl (31.0-35.0); Mean Corpuscular Hemoglobin 33.3 pg (27.0-33.0); Mean Corpuscular Volume 95.4 fL (80.0-98.0); NRBC Abs Auto 0.000 X10*3/uL (0.0-0.012); NRBC Pct Auto 0.0 /100WBC (0.0-0.2); Platelet Count 214 X10*3/uL (160-400); Red Blood Count 4.17 X10*6/uL (4.20-5.50); White Blood Count 7.6 X10*3/uL (4.8-10.8)
[2024-11-07 08:08] LABS: Alanine Aminotransferase 13 U/L (0-31); Albumin Level 4.6 g/dL (3.5-5.0); Alkaline Phosphatase 95 U/L (39-117); Anion Gap 17 (12-20); Aspartate Amino Transferase 20 U/L (5-31); Blood Urea Nitrogen 8 mg/dL (9-16); Calcium 9.8 mg/dL (8.4-10.2); Carbon Dioxide 27 mmol/L (22-29); Chloride 102 mmol/L (96-108); Creatinine Clr Calc Pharmacy 88.0; Estimated Glomerular Filt Rate > 60; Lipase 10 U/L (8-78); Potassium 4.1 mmol/L (3.3-5.1); Sodium 142 mmol/L (135-145); Total Protein 7.5 g/dL (6.5-8.0)
[2024-11-07 08:44] LABS: Appearance Urine Clear; Glucose Urine UA Negative (Negative); PH 6.5 (5.0-9.0); Specific Gravity - Urine <= 1.005 (1.005-1.025); UMIC TRIGGER UACC YES
[2024-11-07 08:49] LABS: UACC Culture Trigger YES
--- NOTE | 2024-11-07 09:40 | PC.NURSE ---
Verbal orders from Dr. Lazo received to add on PUTNAM. Urine spec sent down earlier this AM. Spoke with in Lab-Chemistry who reports there is enough specimen on hand to complete lab, no additional urine required. Results of PUTNAM pending at this time.
[2024-11-07 10:06] LABS: Cannabinoid Screen Urine POSITIVE (Not Detect)
--- NOTE | 2024-11-07 14:42 | PC.NURSE ---
Verbal orders from Dr. Lazo: Pt to med medicated and reattempt transvaginal u/s. Several calls placed to u/s with no answer. [facility] connect sent to noted active staff member with no reply. Pt medicated at this time for per MAY. Will continue to get in touch with u/s
== END 2024-11-07 16:37 | disposition home or self-care (01) ==
PROVIDERS: Emergency Provider Emergency Medicine
DX: R10.31 Right lower quadrant pain (principal); R11.2 Nausea with vomiting, unspecified; Z90.5 Acquired absence of kidney; F31.9 Bipolar disorder, unspecified; Z79.899 Other long term (current) drug therapy
CPT/HCPCS: 36415; 74176; 76830; 76856; 80053; 80307; 81001; 83690; 85025; 87086; 87088; 87186; 93975; 96361; 96374; 96375; 96376; 99285; J1171; J2270; J2405

== ENCOUNTER → 2024-11-07 07:29 | Outpatient (BNV) | payer MEDICARE, MEDICAID, SELFPAY | PROVIDERS: Emergency Provider Emergency Medicine; Visit Provider Radiology Vascular & Interventional Radiology | DX: R10.31 Right lower quadrant pain (principal) | CPT/HCPCS: 74176; 93975 ==